=== PATIENT | female | born 1950 | race Caucasian/White ===

== ENCOUNTER → 2016-06-06 | Outpatient (REF) | payer MEDICARE, MEDICAID ==
[~2016-06-06] MED LIST: /ALEN70TA PO; /DIALVITA PO; /LOR25TA OR; /NEPHROTA; /ONDA4TA PO; /RISE35TA; /WARF25TA OR; /WARF5TA; /ZOLP6ER; ACET65TA; ACET65TA OR; ADV250INH INH; AMBI10TA; AMBIENCR PO; AVEL1TAB PO; CATAPRESS PO; CELEBRE200 PO; CINA30TA PO; CLON0.2T; COLA100C PO; COLA100C2 OR; COUM2.5T11 PO; DARV100T; DIOV160T5 PO; DIOV320T PO; EPOG3000 IVP; ERYTHROPOIETIN; FLEEENE4 PR; FLON0.05; FLON0.054; HCTZ25 PO; HEPA10003 SC; HYDR-3716 PO; LOPR50TA; LOPR50TA PO; LOPRESS50 PO; LOSA100T36 PO; LUNESTA2 PO; LUNESTA3 PO; MANNITOL; METO50TA4; MIRA255PW PO; MOBI7.5T10 PO; MULTIVIT OR; NAPR250T; NEPHTAB PO; NORCOTAB PO; OMEP20TA7 PO; OMEP40CA2 PO; OXYC10TA97 OR; PAXI10TA2 PO; PAXI20TA; PAXI20TA PO; PAXIL20 PO; PERC5TAB8; PERC5TAB8 OR; PERC7.5T8 OR; PERCOCET PO; PHOSLO667 MG; PHOSLO667 MG PO; PREG50CA PO; PRIL20CA; PRIL40CA; RENATAB5 PO; RENV2TAB PO; SENO8.6T10 PO; SIMV20TA2; SIMV20TA2 PO; THERGRAN; TYLE325T5 PO; Tylenol PM PO; VALS1TAB48 PO; VICODIN PO; VITA50003 PO; Vitamin D2 PO; WARF05TA PO; ZEMPLAR; ZOCOR20 PO; [UNRECOGNIZED DRUG - CODE] INJ; [UNRECOGNIZED DRUG - CODE] PO; [UNRECOGNIZED DRUG - OTHER] IV; [UNRECOGNIZED DRUG - OTHER] PO; dialyvite PO; venofer IV
[2016-06-06 12:19] LABS: INR 1.8
== END ==
PROVIDERS: ATTEND Internal Medicine
DX: I48.91 Unspecified atrial fibrillation (principal)

== ENCOUNTER → 2016-06-09 | Outpatient (REF) | payer MEDICARE, MEDICAID ==
[2016-06-09 10:46] LABS: INR 1.5
== END ==
PROVIDERS: ATTEND Internal Medicine
DX: I48.91 Unspecified atrial fibrillation (principal)

== ENCOUNTER → 2016-06-20 | Outpatient (REF) | payer MEDICARE, MEDICAID ==
[~2016-06-20] MED LIST changes: -HEPA10003 SC; +HEPA10004 SC; +LOPR1TAB6 PO
[2016-06-20 14:23] LABS: INR 1.6
== END ==
PROVIDERS: ATTEND Internal Medicine
DX: I48.91 Unspecified atrial fibrillation (principal)

== ENCOUNTER → 2016-07-01 | Outpatient (REF) | payer MEDICARE, MEDICAID ==
[2016-07-01 10:02] LABS: INR 1.46
== END ==
PROVIDERS: ATTEND Internal Medicine
DX: I48.91 Unspecified atrial fibrillation (principal)

== ENCOUNTER → 2016-07-04 | Outpatient (REF) | payer MEDICARE, MEDICAID ==
[2016-07-04 15:22] LABS: INR 1.7
== END ==
PROVIDERS: ATTEND Internal Medicine
DX: I48.91 Unspecified atrial fibrillation (principal)

== ENCOUNTER → 2016-08-30 | Outpatient (REF) | payer MEDICARE, MEDICAID | PROVIDERS: ATTEND Internal Medicine | DX: J02.9 Acute pharyngitis, unspecified (principal) ==

== ENCOUNTER 2016-10-29 05:51 | Emergency (ER) | payer MEDICARE, MEDICAID ==
[~2016-10-29] VITALS: Ht 160 cm; Wt 73.0 kg
[~2016-10-29 05:51] MED LIST changes: -COLA100C PO; +COLA100C3 PO
[2016-10-29] MEDS ORDERED: MULT1TAB18 PO (06:29)
[2016-10-29] MEDS ORDERED: ECOT81TA5 PO (06:29)
[2016-10-29] MEDS ORDERED: NEUR100C PO (06:29)
[2016-10-29] MEDS ORDERED: PHOS667C5 PO (06:29)
[2016-10-29] MEDS ORDERED: COUM1TAB17 PO (06:29)
[2016-10-29] MEDS ORDERED: HYDR-4266 PO (06:29)
[2016-10-29] MEDS ORDERED: ASPE4PAD EX (06:29)
[2016-10-29] MEDS ORDERED: BISA10SU4 PR (06:29)
[2016-10-29] MEDS ORDERED: TETRAHYDROZOLINE OPHTH 0.05% 15 ML BTL OD ONE (06:45)
[2016-10-29 08:32] VITALS: BP 145/84
== END 2016-10-29 08:33 | disposition home or self-care (01) ==
LOC: EDBD 05:51 → M ED 07:05
DX: H11.31 Conjunctival hemorrhage, right eye (principal); I10 Essential (primary) hypertension; N19 Unspecified kidney failure; Z99.2 Dependence on renal dialysis; Z79.899 Other long term (current) drug therapy; Z79.82 Long term (current) use of aspirin; Z79.01 Long term (current) use of anticoagulants; Z91.018 Allergy to other foods

== ENCOUNTER → 2017-01-24 | Outpatient (CLI) | payer MEDICARE, MEDICAID ==
[~2017-01-24] MED LIST changes: +ASPE4PAD EX; +ASPI81TAEC PO; -AVEL1TAB PO; +AVEL1TAB3 PO; +BENA25CA4 PO; +BENPAD EXT; +BENPAD TOP; +BISA10SU4 PR; +CEFD300CAP PO; -COLA100C3 PO; +COLA100C5 PO; +COUM1TAB17 PO; -COUM2.5T11 PO; +COUM2.5T17 PO; +ECOT81TA5 PO; +ENEM1ENE4 PR; +ENEMENE16 PR; +EUCECRE3 TOP; +FLON1SPR; +HYDR-3910 PO; +LEXA1TAB2 PO; +METO1TAB7 PO; +METO50TA7 PO; +MOBI4TAB PO; -MOBI7.5T10 PO; +MULT1TAB18 PO; +NEUR100C PO; +OMEP20CA3 PO; +OXYC1TAB23 PO; +PAXI10TA12 PO; -PAXI10TA2 PO; +PAXI20TA29 PO; +PHOS667C5 PO; +PROC5TA PO; +VITA1CAP40 PO; -VITA50003 PO; +VITATAB PO
--- NOTE | 2017-01-24 11:40 | REP ---
MR LUMBAR SPINE WITHOUT CONTRAST: HISTORY: Back pain. COMPARISON: 10/08/2014. Decreased signal intensity on T2-weighted images is present in the lumbar intervertebral discs. The L2-3 through L4-5 intervertebral discs are decreased in height. These findings are consistent with disc degeneration. There is no disc bulge or herniation at the L1-2 level. The L1 nerves exit the neural foramina without compression. A diffuse disc bugle is present at the L2-3 level. There is minimal compression of the thecal sac. There is hypertrophy of the posterior articulating facets. The L2 nerves exit the neural foramina without compression. A diffuse disc bulge is present at the L3-4 level. There is hypertrophy of the ligamenta flava and posterior articulating facets. There are 5 mm of grade 1 spondylolisthesis of L3 on 4. These findings produce mild central canal stenosis. There is compression of the left L3 nerve in the neural foramen. The right L3 nerve exits the neural foramen without compression. A diffuse disc bugle is present at the L4-5 level. There is hypertrophy of the ligamenta flava and posterior articulating facets. There are 5 mm of grade 1 spondylolisthesis of L4 on 5. These findings produce moderate central canal stenosis. There is compression of the left L4 nerve in the neural foramen. The right L4 nerve exits the neural foramen without compression. A diffuse disc bulge is present at the L5-S1 level. There is no thecal sac compression. There is hypertrophy of the posterior articulating facets. The L5 nerves exit the neural foramina without compression. The conus medullaris is normal in appearance terminating at the level of the T12-L1 intervertebral disc. Increased signal intensity on T2-weighted images is present in the endplates of the L4 and 5 vertebral bodies. This presents degenerative change. Multiple cysts are present in the kidneys. Several have fluid fluid levels. IMPRESSION: 1. Diffuse disc bulge at the L2-3 level with minimal thecal sac compression. 2. Mild central canal stenosis at the L3-4 level secondary to disc bulge, ligamentous, and facet hypertrophy and grade 1 spondylolisthesis. There is compression of the left L3 nerve in the neural foramen. 3. Moderate central canal stenosis at the L4-5 level secondary to disc bugle ligamentous and facet hypertrophy and grade 1 spondylolisthesis. There is compression of the left L4 in the neural foramen. 4. Diffuse disc bulge at the L5-S1 level without thecal sac compression. There has been no change in the above findings. 5. Multiple bilateral renal cysts. Several have fluid fluid levels. Ultrasound may be helpful for further evaluation. Signed by Ahmet Burroughs MD 01/24/2017 11:43 A
== END ==
LOC: M RAD 09:39
PROVIDERS: ATTEND Physician Assistant
DX: M51.26 Other intervertebral disc displacement, lumbar region (principal); M51.27 Other intervertebral disc displacement, lumbosacral region; M48.06 Spinal stenosis, lumbar region; M43.16 Spondylolisthesis, lumbar region; M43.17 Spondylolisthesis, lumbosacral region; N28.1 Cyst of kidney, acquired

== ENCOUNTER 2017-02-13 10:19 | Inpatient (IN) | payer MEDICARE, MEDICAID ==
[~2017-02-13] VITALS: Ht 152.4 cm; Wt 68.0 kg
[~2017-02-13 10:19] MED LIST changes: -ASPI81TAEC PO; -BENA25CA4 PO; -BENPAD EXT; -BENPAD TOP; -CEFD300CAP PO; -ENEM1ENE4 PR; -ENEMENE16 PR; -EUCECRE3 TOP; -FLON1SPR; -LEXA1TAB2 PO; -METO1TAB7 PO; -METO50TA7 PO; -OMEP20CA3 PO; -OXYC1TAB23 PO; -PAXI20TA29 PO; -PROC5TA PO; -VITATAB PO
[2017-02-13] MEDS ORDERED: METOPROLOL 5 MG/5 ML VIAL IV STA (10:52)
--- NOTE | 2017-02-13 11:21 | REP ---
PORTABLE CHEST: AP portable view of the chest is performed and compared to prior study of 04/16/2015. There is cardiomegaly. Chronic interstitial prominence is stable. No consolidation is seen. Mediastinal silhouette is unchanged. IMPRESSION: Cardiomegaly with interstitial prominence is stable. No acute infiltrate. Signed by Supa Cadena MD 02/13/2017 05:00 P
[2017-02-13 11:31] LABS: BASO % 0.3 % (0.0-1.0); EOS # 0.1 K/mm3 (0.0-0.50); EOS % 1.9 % (0.0-3.0); LARGE UNSTAINED CELL # 0.1 K/mm3 (0.0-0.4); LARGE UNSTAINED CELL % 1.9 % (0.0-4.0); LYMPH # 0.8 K/mm3 (1.5-4.5); LYMPH % 8.8 % (24.0-44.0); MEAN CORPUSCULAR HEMOGLOBIN 30.6 pg (27.0-33.0); MEAN CORPUSCULAR HGB CONC 31.4 g/dl (32.0-36.5); MEAN CORPUSCULAR VOLUME 97.4 fl (80.0-96.0); MONO # 0.6 K/mm3 (0.0-0.8); NEUTROPHILS # 5.5 K/mm3 (1.8-7.7); NEUTROPHILS % 78.1 % (36.0-66.0); PLATELET COUNT, AUTOMATED 198 k/mm3 (150-450); RED CELL DISTRIBUTION WIDTH 14.6 % (11.5-14.5); WHITE BLOOD COUNT 7.1 K/mm3 (4.0-10.0)
[2017-02-13 11:49] LABS: ALBUMIN 3.1 GM/DL (3.2-5.2); ALBUMIN/GLOBULIN RATIO 0.82 (1.00-1.93); BILIRUBIN,DIRECT 0.3 MG/DL (0.0-0.2); BILIRUBIN,TOTAL 0.8 MG/DL (0.2-1.0); CALCIUM LEVEL 8.5 MG/DL (8.8-10.2); CREATININE FOR GFR 6.61 MG/DL (0.55-1.02); GLOMERULAR FILTRATION RATE 6.7 (>45); POTASSIUM SERUM 5.1 MEQ/L (3.5-5.1); TOTAL PROTEIN 6.9 GM/DL (6.4-8.2)
[2017-02-13] MEDS ORDERED: ENEM1ENE4 PR (12:27)
[2017-02-13] MEDS ORDERED: FLON1SPR (12:27)
[2017-02-13] MEDS ORDERED: VITATAB PO (12:27)
[2017-02-13] MEDS ORDERED: BENPAD TOP (12:27)
[2017-02-13] MEDS ORDERED: PAXI20TA29 PO (12:27)
[2017-02-13] MEDS ORDERED: OMEP20CA3 PO (12:27)
[2017-02-13] MEDS ORDERED: METO1TAB7 PO (12:27)
[2017-02-13] MEDS: CALCIUM ACETATE 667 MG GELCAP PO SCH ×2 (12:30→19:04)
[2017-02-13] MEDS ORDERED: PERCOCET 5MG/325MG TAB PO ONE (12:30)
[2017-02-13] MEDS ORDERED: FLUTICASONE PROP 0.05% NASAL SPRAY 16 GM (FLONASE) PRN (13:00)
[2017-02-13] MEDS ORDERED: BISACODYL 10 MG SUPP PR PRN (13:00)
[2017-02-13] MEDS ORDERED: FLEET ENEMA PR PRN (13:00)
[2017-02-13 13:07] LABS: INR 2.32
[2017-02-13 13:15] LABS: FREE T4 1.13 NG/DL (0.76-1.46)
--- NOTE | 2017-02-13 13:57 | HPE ---
DATE OF ADMISSION: 02/13/2017 PRIMARY CARE PROVIDER: Dr. Gisela John. DIRECTOR TRANSLATIONAL: Dr. Begum. ATTENDING PHYSICIAN: Dr. Pattie Jiang. CHIEF COMPLAINT: Atrial fibrillation with rapid ventricular response. HISTORY: Margarita Delgado is a 66-year-old from [facility], end stage renal disease on maintenance dialysis Monday, Monday, Monday, who was sent over to the emergency room for low grade fever and "poor color". She was found to be in atrial fibrillation with rapid ventricular response. She had a headache and what was described as neck stiffness which is actually more of a shoulder/upper back discomfort. In the ER, telemetry was applied and she was found to be in atrial fibrillation with rapid ventricular response. She has a past history of atrial fibrillation specifically in sinus rhythm. PAST MEDICAL HISTORY: End stage renal disease. Hypertension. Anemia secondary to chronic kidney disease. Gastroesophageal reflux disease (GERD) secondary to hyperparathyroidism. Osteoporosis. History of depression. Chronic pain syndromes. Hyperlipidemia. Chronic neck pain. Lumbar central canal stenosis. SURGERY: Open reduction internal fixation (ORIF) right ankle times three. Right knee arthroplasty. Left hip arthroplasty. AV fistula left forearm with revision. section times two. REVIEW OF SYSTEMS: No chest pain. No dyspnea on exertion. No perceived palpitations. [facility] It has since resolved. She had a low grade fever. No chills. No frequency, urgency, dysuria. MEDICATIONS: - Tylenol as needed - [place] 5/325 every 6 hours as needed - aspirin 81 mg daily - Dulcolax suppository daily as needed - PhosLo 667 mg with meals - Sensipar 30 mg twice weekly - Senokot twice daily - Colace 100 mg daily at bedtime - vitamin D 50,000 units monthly - Flonase spray - Neurontin 100 mg twice daily - hydralazine 25 mg twice daily - metoprolol ER 50 mg four days a week - omeprazole 20 mg daily - Paxil 20 mg daily - [id number]-[id number]-[id number] one daily - warfarin 5 mg daily ALLERGIES: KENA. PHYSICAL EXAMINATION: 101/66, pulse 114, respiratory 18, 98% on oxygen saturation. General appearance: She is resting comfortably in no distress. Her headache has resolved. She does not have any neck pain or stiffness. There is an upper back and shoulder ache. It is worse if she rotates her neck left or right or lifts her arms up over her head. Pupils equal, round, and reactive to light. Tympanic membranes and oropharynx benign. Neck: No masses. Lungs: Decreased breath sounds but clear. Heart: Regular rate and rhythm. Tachycardic. 1-2/6 systolic ejection murmur. Abdomen: Soft, nontender, no masses. Dialysis AV fistula left forearm. Extremities: 1+ peripheral edema. No clubbing or cyanosis. Decreased pulses in her feet, still palpable. Neurological: Nonfocal. LABS: EKG shows atrial fibrillation with rapid ventricular response, nonspecific T wave abnormalities related to rate. White count 7.1, hemoglobin 10.1, platelets 198. Potassium 5.1. Sodium 134, glucose 97. She is on warfarin but no INR was checked. She did have a lactic acid check which was normal. IMPRESSION: 1. Atrial fibrillation with rapid ventricular response. Obviously she needs an INR check. She is on warfarin. Her rate is under better control after receiving some metoprolol in the emergency room. She is currently on metoprolol ER four days a week. We will change this to short acting metoprolol on a split dose daily until her beta mikhail requirements are determined. Echocardiogram has been ordered. Free T4, TSH has been ordered. Cycle a set of cardiac enzymes. 2. End stage renal disease. She is on dialysis. Nephrology has been consulted. 3. Hypertension. Continue hydralazine. Increase frequency of metoprolol. 4. History of depression. Continue antidepressant medications. 5. Chronic pain syndrome. Continue her [place]. There is nothing meningitic about her neck pain. It is aggravated by moving her arms and is felt as a deep interscapular ache across the top of her shoulders. I do not think it warrants evaluation for encephalitis or meningitis.
--- NOTE | 2017-02-13 14:26 | ER ---
DATE OF CONSULTATION: 02/13/2017 REQUESTING PHYSICIAN: Dr. Mejia in the emergency room. REASON FOR CONSULTATION: Assistance in the management of endstage renal disease and hemodialysis. HISTORY OF PRESENT ILLNESS: Margarita Delgado is a 66-year-old female with a past medical history of endstage renal disease and hemodialysis every Monday, Monday, Monday. She is well-known to the nephrology service from outpatient hemodialysis. She is a resident of [facility]. She was sent to the emergency room today because of persistent headaches, low grade fevers, and rapid heart rate. The patient was found to have a low grade temperature of 100.7 in the emergency room. She was also found to be in atrial fibrillation with rapid ventricular rate. 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 When I saw the patient in the emergency room, she was afebrile. She was tachycardic but that was because of atrial fibrillation but otherwise, she was hemodynamically stable and she was able to communicate with me. PAST MEDICAL HISTORY: Endstage renal disease on hemodialysis every Monday, Monday, and Monday because of hypertensive nephrosclerosis. The patient has a history of osteoporosis, hypertension, hyperlipidemia, degenerative arthritis, gastroesophageal reflux disease, anemia of chronic kidney disease, history of depression, history or peripheral neuropathy and patient is chronically bedridden. She is unable to walk. PAST SURGICAL HISTORY: The patient is status post left hip arthroplasty, status post open reduction internal fixation of the right ankle in the past, status post left forearm AV fistula placement and history of section times two in the past. ALLERGIES: No known drug allergies. FAMILY HISTORY: No significant family history of endstage renal disease requiring hemodialysis. SOCIAL HISTORY: The patient is a resident at [facility]. There is no history of illicit drug abuse, alcohol abuse, or smoking. REVIEW OF SYSTEMS: CONSTITUTIONAL: The patient reports a low grade fever but she denies any chills or rigors. EYES: She denies any blurry vision or double vision. ENT: She denies any dysphagia, odynophagia or ear discharge. CARDIOVASCULAR: The patient denies any chest pain. She does report some palpitations. RESPIRATORY: She denies any cough or shortness of breath. GI: She denies any nausea, vomiting or pain in the abdomen. GENITOURINARY: She denies any dysuria, hematuria. MUSCULOSKELETAL: The patient reports inability to walk. CENTRAL NERVOUS SYSTEM: The patient reports history of lower extremity weakness and peripheral neuropathy. But there is no history seizure disorder. ENDOCRINE: The patient has secondary hyperparathyroidism. SKIN: She denies any rashes or ulcers. PSYCH: She denies any depression or anxiety. All other review of systems is negative. PHYSICAL EXAMINATION: GENERAL: The patient is awake, alert, oriented times three, laying in bed. No apparent distress. VITAL SIGNS: Temperature is 98 degrees Fahrenheit, blood pressure is 120/70, pulse 126, respiratory rate 18, saturating 98% in room air. HEAD/NECK: Extraocular muscles intact. Pupils equal, round, and reactive to light. Mucous membranes are moist. Neck is supple. There is elevation of jugular venous distention. CARDIOVASCULAR: S1, S2, irregularly irregular heart rate. No murmur, rub or gallop. RESPIRATORY: Chest is clear to auscultation bilaterally. Bilaterally good air entry. No rales or rhonchi. ABDOMEN: Soft, positive bowel sounds. Nontender. No ascites. No organomegaly. MUSCULOSKELETAL: No edema of the bilateral lower extremities. No clubbing or stenosis. The patient has weakness of bilateral lower extremities. AV access. The patient has a large left forearm AV fistula with positive thrill and bruit. CENTRAL NERVOUS SYSTEM: Power is 5/5 in bilateral upper extremities. No focal deficit except bilateral lower extremity weakness. LAB REVIEW: CBC showed a WBC 7.1, hemoglobin 10.1, platelets 198. BNP showed sodium 134, potassium 5.1, chloride 98, bicarbonate 24, BUN 17, creatinine 6.6, calcium 8.5, phosphorus 2.7. Ferritin is 720,000, saturation is 8.5%. The iron studies are from previous labs. IMAGING: A chest x-ray done today in the emergency room showed cardiomegaly with interstitial prominence. No acute infiltrate. CURRENT MEDICATIONS: In the emergency room, the patient was given metoprolol 5 mg IV times one dose and a dose or Percocet one tablet times one. HOME MEDICATIONS: The patient's home medications including: - Tylenol as needed. - [place] one tablet every 6 hours as needed pain - aspirin 81 mg daily - PhosLo one tablet by mouth twice a day with meals - Sensipar 30 mg by mouth two times a week - Colace 200 mg nightly - vitamin D 50,000 units once a month - Flonase nasal spray - gabapentin 100 mg by mouth twice a day - hydralazine 25 mg by mouth twice a day - metoprolol succinate 50 mg by mouth four times a week on Monday, , Monday and Monday. - paroxetine 20 mg daily - Nephro-Jake one tablet daily - Coumadin 5 mg by mouth in the evening ASSESSMENT: 66-year-old female with a past medical history of endstage renal disease on hemodialysis. This patient presented to the emergency room with a low grade fever and atrial fibrillation with rapid ventricular rate. The patient missed her hemodialysis today. PLAN: 1. Endstage renal disease on hemodialysis. Today's is the patient's regular day of dialysis. Inpatient hemodialysis will be arranged once the patient is admitted. She will get dialysis upstairs at dialysis center today. I shall try to remove about 3 kg of fluid as tolerated by her blood pressure. 2. Hypertension: Blood pressure is acceptable at this time. The patient gets her metoprolol on nondialysis days only. No need of any antihypertensive at this time. 3. Atrial fibrillation with rapid ventricular rate. The patient was given metoprolol 5 mg IV times one dose. If the patient does not respond, she can be given a dose of amiodarone 150 mg IV times one dose. 4. Chronic kidney disease mineral bone disease: Continue current dose of PhosLo one tablet by mouth twice a day with meals. 5. Secondary hyperparathyroidism: Continue Sensipar 30 mg by mouth two times a week. 6. History of depression and anxiety: Continue current dose of Paxil 20 mg by mouth daily. 7. Anemia and endstage renal disease: The patient's hemoglobin is 10.1, which is acceptable at this time. No need or Aranesp administration at this time. Thank you for involving us in the care of this patient. We shall be happy to follow the patient along with you tomorrow morning, once the patient is admitted. Plan of care was discussed with the emergency room physician, Dr. Mejia.
[2017-02-13] MEDS: METOPROLOL TART 25 MG TABLET PO SCH ×2 (14:45→17:51)
[2017-02-13] MEDS ORDERED: HEPARIN 1,000 UNITS/ML 10ML VIAL (FOR RADIOLOGY& DIALYSIS ONLY) IV ONE (15:15)
[2017-02-13 17:15] VITALS: BP 140/82
[2017-02-13] MEDS: WARFARIN SOD 5 MG TAB PO SCH (17:51)
[2017-02-13] MEDS: ACETAMINOPHEN TAB 650MG DOSE (2X325MG) PO PRN (17:56)
[2017-02-13] MEDS: NEPHRO-VIT TAB (NEPHROCAPS) PO SCH (19:00)
--- NOTE | 2017-02-13 19:56 | ECGEPIP ---
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
[2017-02-13 20:00] VITALS: BP 113/63
[2017-02-13] MEDS: GABAPENTIN 100 MG CAP PO SCH (20:14)
[2017-02-13] MEDS: DOCUSATE SODIUM 100 MG CAP PO SCH (20:14)
[2017-02-13] MEDS: NORCO, ANEXSIA 5/325MG TABLET (HYDROcodone/ACETAMINOPHEN) PO PRN (20:14)
[2017-02-13] MEDS: **hydrALAZINE HCL** 25 MG TAB PO SCH (20:15)
[2017-02-13] MEDS: SENOKOT S TAB PO SCH (20:15)
[2017-02-13 23:59] VITALS: BP 126/71
[2017-02-14] MEDS: METOPROLOL TART 25 MG TABLET PO SCH ×5 (00:17→23:45)
[2017-02-14] MEDS: NORCO, ANEXSIA 5/325MG TABLET (HYDROcodone/ACETAMINOPHEN) PO PRN ×4 (03:56→23:45)
[2017-02-14 04:00] VITALS: BP 138/87
[2017-02-14 05:41] LABS: MEAN CORPUSCULAR HEMOGLOBIN 31.9 pg (27.0-33.0); MEAN CORPUSCULAR HGB CONC 33.2 g/dl (32.0-36.5); MEAN CORPUSCULAR VOLUME 95.9 fl (80.0-96.0); RED CELL DISTRIBUTION WIDTH 14.4 % (11.5-14.5)
[2017-02-14 05:42] LABS: INR 2.54
[2017-02-14 05:49] LABS: CALCIUM LEVEL 8.2 MG/DL (8.8-10.2); CREATININE FOR GFR 4.22 MG/DL (0.55-1.02); GLOMERULAR FILTRATION RATE 11.2 (>45); POTASSIUM SERUM 4.3 MEQ/L (3.5-5.1)
[2017-02-14 08:00] VITALS: BP 140/80
[2017-02-14] MEDS: ASPIRIN 81 MG ENTERIC TAB PO SCH (08:46)
[2017-02-14] MEDS: OMEPRAZOLE 20 MG CAP PO SCH (08:46)
[2017-02-14] MEDS: GABAPENTIN 100 MG CAP PO SCH ×2 (08:46→21:12)
[2017-02-14] MEDS: PARoxetine 20 MG TAB PO SCH (08:46)
[2017-02-14] MEDS: CALCIUM ACETATE 667 MG GELCAP PO SCH ×3 (08:46→17:19)
[2017-02-14] MEDS: **hydrALAZINE HCL** 25 MG TAB PO SCH ×2 (08:46→21:12)
[2017-02-14] MEDS: SENOKOT S TAB PO SCH ×2 (08:46→21:12)
[2017-02-14] MEDS: NEPHRO-VIT TAB (NEPHROCAPS) PO SCH (08:52)
[2017-02-14] MEDS ORDERED: VITAMIN D 50,000 UNITS CAPSULE (ERGOCALCIFEROL 1.25MG) PO SCH (09:00)
[2017-02-14] MEDS ORDERED: GASTROGRAFIN SOLUTION 30ML PO ONE (10:45)
[2017-02-14] MEDS ORDERED: GASTROGRAFIN SOLUTION 30ML (Q9963) PO ONE (11:15)
[2017-02-14 12:00] VITALS: BP 111/87
[2017-02-14] MEDS ORDERED: ISOVUE-370 76% 100ML VIAL (Q9967) As Ordered ONE (12:41)
--- NOTE | 2017-02-14 13:18 | IPNPDOC ---
Date Seen The patient was seen on 02/14/17. Progress Note SUBJECTIVE: Patient complains of episodes of myoclonic jerking yesterday, as well as neck stiffness and shoulder soreness which is been present for several months and not any acutely worse at the present time she denies any myoclonic jerking and tells me that her neck pain is at its baseline. She feels better than she did yesterday OBJECTIVE PHYSICAL EXAMINATION: VITAL SIGNS: Please see below. GENERAL: Pleasant elderly female lying in bed at a 30 angle she does not appear to be in any acute distress whatsoever HEENT: Pupils equally round reactive to light she has moist mucous membranes no elevation and CVP CARDIOVASCULAR: S1-S2 irregularly irregular without any additional heart sounds appreciated. RESPIRATORY: Clear to auscultation. ABDOMINAL: Bowel sounds are present abdomen soft and nontender to palpation EXTREMITIES: No clubbing cyanosis or edema LABORATORY DATA: Please see below. MICROBIOLOGY: Please see below. IMAGING: Chest x-ray 918:Cardiomegaly with interstitial prominence is stable. No acute infiltrate. DVT prophylaxis ordered?: Therapeutic on Coumadin ASSESSMENT AND PLAN: This is a 66-year-old female with atrial fibrillation with rapid ventricular response and low-grade fever. PROBLEMS: 1. Atrial fibrillation with rapid ventricular response: The patient was reportedly told she had atrial fibrillation by Dr. Butler prior to having her fistula placed she is on Coumadin and reportedly started on this by him she is therapeutic she is rate controlled at this time with metoprolol 25 mg every 6 hours. Should this not be enough to control would recommend discontinuing hydralazine and titrating up her beta mikhail. A TSH is slightly low however not impressively low and echocardiogram has been ordered 2. Low-grade fever: Unclear etiology at this time. We'll check UA urine culture she does make some urine still she does not have any rest or symptoms or any acute infiltrate. No URI symptoms and influenza swab was negative blood cultures are pending she is not currently on any antibiotics. Her neck pain is more chronic arthritis and does not appear to be meningeal or encephalitic source at all and I do not feel she needs a lumbar puncture 3. End-stage renal disease: Probably is also greatly appreciated she continues on dialysis Monday she is on Sensipar vitamin D Nephro-Jake. PhosLo 4. Hypertension: As outlined above the patient is on hydralazine she is also on metoprolol which we are titrating 5. Neuropathy: The patient is on Neurontin and she is bedridden group home patient at her baseline DISPOSITION: We will continue to monitor Closely. VS, I&O, 24H, Fishbone Vital Signs/I&O Vital Signs Date Time Temp Pulse Resp B/P (MAP) Pulse Ox O2 Delivery O2 Flow Rate FiO2 02/14/17 12:00 99.3 99 18 111/87 (95) 91 Room Air 02/14/17 11:10 2.0 I&O- Last 24 Hours up to 6 AM 02/14/17 05:59 Intake Total 120 ml Output Total 3025 ml Balance -2905 ml Laboratory Data 24H LABS Laboratory Tests 2 02/13/17 18:40: Total Creatine Kinase 24L, Creatine Kinase MB 1.0, Creatine Kinase MB Relative Index 4.16H, Troponin I < 0.02 02/14/17 02:35: Total Creatine Kinase 19L, Creatine Kinase MB 1.0, Creatine Kinase MB Relative Index 5.26H, Troponin I < 0.02 02/14/17 05:18: Prothrombin Time 28.4H, Prothromb Time International Ratio 2.54, Anion Gap 9, Glomerular Filtration Rate 11.2L, Blood Urea Nitrogen 35H, Creatinine 4.22H, Sodium Level 134L, Potassium Level 4.3, Chloride Level 97L, Carbon Dioxide Level 28, Calcium Level 8.2L 02/14/17 10:43: Total Creatine Kinase 28, Creatine Kinase MB 1.0, Creatine Kinase MB Relative Index 3.57, Troponin I < 0.02 CBC/BMP Laboratory Tests 02/14/17 05:18 Red Blood Count 3.11 L, Mean Corpuscular Volume 95.9, Mean Corpuscular Hemoglobin 31.9, Mean Corpuscular Hemoglobin Concent 33.2, Red Cell Distribution Width 14.4, Calcium Level 8.2 L Microbiology Microbiology 02/13/17 Blood Culture - Preliminary, Resulted No growth after 24 hours . All specim... 02/13/17 Blood Culture - Preliminary, Resulted No growth after 24 hours . All specim... 02/13/17 Influenza Virus Type A Antigen - Final, Complete 02/13/17 Influenza Virus Type B Antigen - Final, Complete TERESA DARLING MD Feb 14, 2017 13:18
--- NOTE | 2017-02-14 13:39 | REP ---
CT of the abdomen and pelvis with IV and bowel contrast: Comparison is 04/21/2015. The visualized lung ruggiero are unremarkable. There are two crescentic shaped low density collections , one along the anterior margin of the hepatic right lobe and the other along the lateral margin of the hepatic right lobe, not present previously, compatible with subcapsular hematomas. The hepatic parenchyma is otherwise homogeneous and unremarkable. The gallbladder is incompletely distended, however multiple gallbladder calculi are again identified, unchanged. The gallbladder is otherwise unremarkable. The pancreas is unremarkable. The spleen is homogeneous, normal size and unremarkable. There is marked renal cortical atrophy bilaterally compatible with end-stage renal disease. I note that the patient is on dialysis. This is unchanged. There are numerous renal cysts bilaterally, also compatible with advanced renal disease. On the comparison study there was a large cyst lateral to the left kidney. This cyst today and has increased in size and there is a mottled increased density throughout. This could represent hemorrhage, infection or neoplasm in this cyst as an interval change. There is no free intraperitoneal fluid. The adrenals are unremarkable. Abdominal aorta is unremarkable. There is moderate gaseous distension of the colon, nonspecific. There is no small bowel distension. Pelvis: The uterus and adnexa are unremarkable. There is no adenopathy or ascites. The pelvic bowel loops are unremarkable. There is internal fixation of the left femur with a gamma nail. Impression: Probable new subcapsular hematomas in the liver. The largest left renal cyst has significantly increased in size and is filled with mottled opaque material as interval changes compatible with hemorrhage, infection, neoplasm or combination of this cyst. Signed by Supa Metz MD 02/14/2017 01:31 P
--- NOTE | 2017-02-14 13:59 | IPN ---
DATE: 02/14/2017 SUBJECTIVE: The patient was seen and examined at the bedside this morning. She was dialyzed emergently yesterday, she tolerated the hemodialysis procedure well. Atrial fibrillation is better controlled at this time; however, the patient is complaining of pain in the left lower abdomen, which started today. REVIEW OF SYSTEMS: The patient denies any fevers, chills, rigors at this time. She denies any chest pain, shortness of breath. She denies any nausea, vomiting, but she does report pain in the left lower quadrant of the abdomen. She denies any constipation or diarrhea or blood in the stool. The rest of the review of systems is negative. OBJECTIVE: VITAL SIGNS: Temperature is 99.3 degrees Fahrenheit. Blood pressure is 111/87, pulse is 99, respiratory rate of 18, saturating 91% on room air. Intake and output: Urine output is not recorded. Ultrafiltration with hemodialysis was 3 liters yesterday. Weight on the bed scale is 17.8 kg. PHYSICAL EXAMINATION: GENERAL: The patient is awake, alert and oriented times three. Lying in bed in no apparent distress. HEAD AND NECK EXAM: Extraocular muscles intact. Pupils are equal, round and reactive to light. Mucous membranes are moist. Neck is supple. There is elevated jugular venous distention (JVD). CARDIOVASCULAR: S1, S2. It is regular heart rate with tachycardia. RESPIRATORY: Chest is clear to auscultation bilaterally. Bilateral equal air entry. No rales or rhonchi. ABDOMEN: Soft, mildly tender to deep palpation in the left lower quadrant with slight rebound tenderness. EXTREMITIES: No clubbing or cyanosis. Pulses are 2+. CENTRAL NERVOUS SYSTEM (FLEET ADMINISTRATIVE ASSISTANT): No focal neurological deficits except bilateral lower extremity weakness. She is oriented times three. LABORATORY REVIEW: CBC showed a WBC 7, hemoglobin 9.9, platelets 178, BMP showed sodium 134, potassium 4.3, chloride 97, bicarbonate 28, BUN 35, creatinine 4.2, calcium 8.2. CURRENT INPATIENT MEDICATIONS: The patient's medications were all reviewed by me. There is no change in the medications today as compared with yesterday. ASSESSMENT: 66-year-old female with a past medical history of end stage renal disease on hemodialysis, chronic atrial fibrillation admitted this time with low grade fevers and atrial fibrillation with rapid ventricular rate. PLAN: 1. End stage renal disease on hemodialysis. The patient's regular dialysis days are Monday, Monday, Monday. She was dialyzed according to her regular schedule yesterday inpatient and 3 liters of fluid was removed. No urgent need of hemodialysis today. Next session will be done tomorrow. 2. Atrial fibrillation with rapid ventricular rate. The patient got IV metoprolol on admission. She is on metoprolol 25 mg by mouth every 6 hours at this time. Continue the current dose at this time. Atrial fibrillation is better controlled at this time. 3. Pain in left lower quadrant of the abdomen. The patient is going to get a CAT scan of the abdomen and pelvis with contrast. It is okay to give oral and IV contrast to the patient because she is a dialysis patient. She will be dialyzed tomorrow. 4. Anemia in end stage renal disease. The patient's hemoglobin is 9.9. She will be given a dose of Aranesp with hemodialysis tomorrow morning. 5. Hypertension. Blood pressure is acceptable at this time. Continue current dose of hydralazine 25 mg by mouth twice a day and metoprolol 25 mg by mouth every 6 hours. She is already on Coumadin. INR is therapeutic at 2.5 today. The plan of care was discussed with the hospitalist, Dr. Garza.
[2017-02-14 15:30] LABS: RENAL EPITHELIAL CELLS 1 /HPF
[2017-02-14 16:00] VITALS: BP 123/79
[2017-02-14] MEDS: WARFARIN SOD 5 MG TAB PO SCH (17:19)
[2017-02-14 20:00] VITALS: BP 109/70
[2017-02-14] MEDS: DOCUSATE SODIUM 100 MG CAP PO SCH (21:12)
[2017-02-14] MEDS: ACETAMINOPHEN TAB 650MG DOSE (2X325MG) PO PRN (21:16)
--- NOTE | 2017-02-14 22:11 | ECGEPIP ---
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
[2017-02-14 23:53] VITALS: BP 144/86
--- NOTE | 2017-02-14 23:58 | ECHO ---
DATE OF PROCEDURE: 02/14/2017 REFERRING PHYSICIAN: Dr. Jung Jackson INDICATION: Atrial fibrillation. HEIGHT: 152 cm WEIGHT: 77.4 kg 2D MEASUREMENTS: Aortic root: 3.3 cm Left atrium: 5.0 cm Ventricular septum: 1.17 cm Posterior wall: 1.17 cm Left ventricle diastole: 4.7 cm LVOT: 2.3 cm Right ventricle: 5.3 cm Inferior vena cava: 2.4 cm DOPPLER MEASUREMENTS: Very mild aortic regurgitation. Aortic valve velocity: 109 cm/s LVOT velocity: 79.7 cm/s LVOT VTI: 13.0 cm Mild mitral regurgitation. Severe tricuspid regurgitation. Estimated right ventricle systolic pressure: At least 62 mmHg assuming a right atrial pressure of at least 20 mmHg. Pulmonary artery systolic pressure: 46 mmHg by pulmonary acceleration time method. DESCRIPTION: Rhythm was atrial fibrillation with rapid ventricular response. Image quality was fair. CONCLUSIONS: 1. Normal left ventricle internal dimensions and wall thickness. No distinct regional wall motion abnormalities. Mild reduction overall left ventricular (LV) systolic function. Left ventricular ejection fraction (LVEF) 50% by visual estimate. 2. Severe left atrial dilatation. 3. Severe right atrial dilatation. Suggestive of severe elevation of estimated right ventricle systolic pressure (at least 62 mmHg). Severe tricuspid regurgitation with structurally normal appearing tricuspid leaflets. Mildly dilated right ventricle with normal right ventricular (RV) systolic function. 4. Inferior vena cava plethora. Suggestive of elevated central venous pressure of at least 20 mmHg. 5. Very small pericardial effusion over the inferior and inferolateral regions of the left ventricle. No diastolic chamber collapse. 6. Very mild aortic valve sclerosis of a 3-cusp aortic valve. Very mild aortic regurgitation ADDITIONAL COMMENTS AND RECOMMENDATIONS: Recommend rate controlled approach to atrial fibrillation.
[2017-02-15 04:00] VITALS: BP 108/60
[2017-02-15 05:55] LABS: MEAN CORPUSCULAR HEMOGLOBIN 31.2 pg (27.0-33.0); MEAN CORPUSCULAR HGB CONC 32.8 g/dl (32.0-36.5); MEAN CORPUSCULAR VOLUME 95.2 fl (80.0-96.0); RED CELL DISTRIBUTION WIDTH 14.4 % (11.5-14.5); WHITE BLOOD COUNT 10.6 K/mm3 (4.0-10.0)
[2017-02-15 05:59] VITALS: BP 110/82
[2017-02-15 05:59] LABS: INR 3.54
[2017-02-15 06:02] LABS: CALCIUM LEVEL 8.4 MG/DL (8.8-10.2); CREATININE FOR GFR 5.76 MG/DL (0.55-1.02); GLOMERULAR FILTRATION RATE 7.8 (>45); POTASSIUM SERUM 4.7 MEQ/L (3.5-5.1)
[2017-02-15] MEDS: METOPROLOL TART 25 MG TABLET PO SCH ×3 (06:25→17:05)
[2017-02-15] MEDS: SENOKOT S TAB PO SCH ×2 (06:26→21:17)
[2017-02-15] MEDS: OMEPRAZOLE 20 MG CAP PO SCH (06:26)
[2017-02-15] MEDS: GABAPENTIN 100 MG CAP PO SCH ×2 (06:26→21:17)
[2017-02-15] MEDS: **hydrALAZINE HCL** 25 MG TAB PO SCH ×2 (06:26→21:17)
[2017-02-15] MEDS: ASPIRIN 81 MG ENTERIC TAB PO SCH (06:26)
[2017-02-15] MEDS: CALCIUM ACETATE 667 MG GELCAP PO SCH ×3 (06:27→17:05)
[2017-02-15] MEDS: PARoxetine 20 MG TAB PO SCH (06:27)
[2017-02-15 08:00] VITALS: BP 118/68
[2017-02-15] MEDS ORDERED: INFLUENZA VIRUS VACCINE HIGH DOSE 0.5 ML SYRINGE (90662) IM ONE (09:00)
[2017-02-15] MEDS ORDERED: CINACALCET 30 MG TAB (SENSIPAR) PO SCH (09:00)
[2017-02-15] MEDS ORDERED: CEFEPIME HCL 0.5 GM in D5W 50 ML IV SCH (11:00)
--- NOTE | 2017-02-15 11:33 | CR.PDOC ---
[facility] Consultation Consultation DATE OF CONSULTATION: Feb 13, 2017 at 10:19 Requesting physician: Dr. Garza REASON FOR CONSULTATION/CHIEF COMPLAINT: Acute subscapular liver hematoma HISTORY OF PRESENT ILLNESS: Margarita Hua to 66-year-old female, a current resident of the [facility]. With a past medical history of end-stage renal disease on maintenance dialysis Monday, Monday, and Monday. She presented to the emergency room on 02/13/2017 because of low-grade fever and poor color. She was found to be in atrial fibrillation with rapid ventricular response. Patient is currently on warfarin 5 mg daily. She also described neck stiffness along with a headache. She also complained of left lower abdominal pain. On 02/14/[address] of the abdomen and pelvis was obtained. An incidental probable new subscapular hematoma was discovered as well as a large left renal cyst that had significantly increased in size and was filled with moderate opaque materials, with interventional changes compatible with either hemorrhage , infection, neoplasm or combination of all 3. ALLERGIES: Please see below. HOME MEDICATIONS: Please see below. PAST MEDICAL HISTORY: End-stage renal disease Hypertension Anemia secondary to chronic kidney disease Gastroesophageal reflux disease Osteoporosis History of depression Chronic pain syndrome Hyperlipidemia Chronic neck pain Lumbar central canal stenosis PAST SURGICAL HISTORY: Open reduction internal fixation of the right ankle 3 Right knee arthroplasty Left hip arthroplasty AV fistula left forearm with revision sections 2 SOCIAL HISTORY: The patient is resident at [facility], no history of illicit drug abuse, alcohol abuse or smoking REVIEW OF SYSTEMS: CONSTITUTIONAL: Alert, orientated, patient was seen in the dialysis suite currently receiving dialysis HEENT: Denies any headache, denies any blurry eyes, denies any nose or drainage CARDIOVASCULAR: Has chest pain, denies palpitation denies any murmurs RESPIRATORY: Denies breathing difficulty, shortness of breath GENITOURINARY: Denies any difficulty urinating, no dysuria, no hematuria MUSCULOSKELETAL: Reports inability to walk as well as lotion and weakness, left lower abdominal pain HEMATOLOGIC/LYMPHATIC: Denied any recent bleeding episode PHYSICAL EXAMINATION: VITAL SIGNS: Please see below. GENERAL APPEARANCE: Alert, currently receiving dialysis HEENT: Head is atraumatic, was mucosa is moist, RESPIRATORY: Clear to auscultate the lungs bilaterally anterior and posteriorly. CARDIOVASCULAR: 1 and S2 present, no rubs, no murmurs, no gallops ABDOMEN: Tender to palpate in the right upper quadrant, tender to palpate in left lower quadrant, the pain is worse in the left side, no organomegaly noted LABORATORY DATA: Please see below. ASSESSMENT: A 66-year-old female with a past medical history of end-stage renal disease on hemodialysis. She presented to the ED on 02/13/2017 with low-grade fever and poor color. A CT scan done on 02/14/2017 reveal an incidental finding of subscapular hematoma. PLAN 1. Subscapular hematoma: This is most likely due to the warfarin adverse effect. I recommend that patient's warfarin be stopped for about 7-10 days. Consider a referral to cardiology, to determine if warfarin dose can be reduced. Or perhaps an ultimate blood thinner with a decreased incidence of adverse bleeding. A Follow-up CT is unnecessary unless anemia worsens, or hematoma starts to cause mass effect issues. Scapular hematomas are treated conservatively, and I expected the same with this patient. At this point there is no need for any surgical intervention. 2. Renal cyst: There is a possibility that she is bleeding into the renal cyst, which would explain the recent enlargement of the cyst. I recommend that she follow the recommendations made by nephrology in terms of managing this patient cyst and dialysis treatment. Thank you in involving us in the treatment of this patient. We shall be happy to assist you with further management of this patient. Vital Signs/I&O Vital Signs Date Time Temp Pulse Resp B/P (MAP) Pulse Ox O2 Delivery O2 Flow Rate FiO2 02/15/17 08:33 Room Air 2.0 02/15/17 08:00 99.0 70 18 118/68 (85) 94 I&O- Last 24 Hours up to 6 AM 02/16/17 05:59 Intake Total 60 ml Output Total 0 ml Balance 60 ml Laboratory Data Labs 24H Laboratory Tests 2 02/14/17 15:08: Urine Appearance CLOUDYH, Urine Color DANNY, Urine pH 8.0, Urine Specific [place] 1.011, Urine Protein 2+H, Urine Glucose (UA) NEGATIVE, Urine Ketones NEGATIVE, Urine Urobilinogen 0.2, Urine Bilirubin NEGATIVE, Urine Leukocyte Esterase 3+H, Urine Blood 2+H, Urine Nitrite NEGATIVE, Urine WBC (Auto) TNTCH, Urine RBC (Auto) 27H, Urine Hyaline Casts (Auto) 0, Urine Bacteria (Auto) NEGATIVE, Urine Squamous Epithelial Cells 16, Urine Renal Epithelial Cells 1, Urine Sperm (Auto) 02/15/17 05:34: Prothrombin Time 37.2H, Prothromb Time International Ratio 3.54, Anion Gap 12, Glomerular Filtration Rate 7.8L, Blood Urea Nitrogen 57#H, Creatinine 5.76H, Sodium Level 131L, Potassium Level 4.7, Chloride Level 93L, Carbon Dioxide Level 26, Calcium Level 8.4L CBC/BMP Laboratory Tests 02/15/17 05:34 Red Blood Count 3.11 L, Mean Corpuscular Volume 95.2, Mean Corpuscular Hemoglobin 31.2, Mean Corpuscular Hemoglobin Concent 32.8, Red Cell Distribution Width 14.4, Calcium Level 8.4 L Microbiology Microbiology 02/13/17 Blood Culture - Preliminary, Resulted No Growth after 48 hours. All Specime... 02/13/17 Blood Culture - Preliminary, Resulted No Growth after 48 hours. All Specime... 02/13/17 Influenza Virus Type A Antigen - Final, Complete 02/13/17 Influenza Virus Type B Antigen - Final, Complete 02/14/17 Urine Culture - Final, Complete Allergies Coded Allergies: [place] (Verified Allergy, Severe, KENA SKINS - RASH, THROAT SWELLING, DIFF BREATHING, 09/06/11) Home Medications Scheduled (Vitamins For Hair) 1 Tab Tab, 1 TAB PO DAILY, (Reported) Aspirin (Ecotrin Low Strength) 81 Mg Tab, 81 MG PO DAILY, (Reported) Calcium Acetate (Phoslo) 667 Mg Cap, 667 MG PO WM, (Reported) Cinacalcet Hydrochloride (Sensipar) 30 Mg Tab, 30 MG PO 2XW, (Reported) MONDAY & MONDAY Docusate Sod/Senna (Senokot S 8.6-50 mg) 1 Tab Tab, 1 TAB PO BID, (Reported) Docusate Sodium (Colace) 100 Mg Cap, 200 MG PO QHS, (Reported) Ergocalciferol (Vitamin D) 50,000 Unit Cap, 50,000 UNIT PO QMONTH, (Reported) 19TH OF EVERY MONTH Gabapentin (Neurontin) 100 Mg Cap, 100 MG PO BID, (Reported) Hydralazine HCl (Hydralazine HCl) 25 Mg Tab, 25 MG PO BID, (Reported) Metoprolol Succinate (Metoprolol Succinate ER) 50 Mg Tab, 50 MG PO 4XWK, ( Reported) BID ON SUN, TUES, THURS, SAT Omeprazole (Omeprazole) 20 Mg Cap, 20 MG PO DAILY, (Reported) Paroxetine Hydrochloride (Paxil) 20 Mg Tab, 20 MG PO DAILY, (Reported) Vitamin B Cmplx/Vitc/Folic Ac (Nephro-Jake Rx 1 mg) 1 Tab Tab, 1 TAB PO DAILY, ( Reported) Warfarin Sod (Coumadin) 5 Mg Tab, 5 MG PO QPM, (Reported) Scheduled PRN (Flonase Allergy Relief) 50 Mcg/Act Spr, 1 SPRAY NA DAILY PRN for NASAL CONGESTION, (Reported) (Enema) 1 Amina Amina, 1 AMINA [place] DAILY PRN for CONSTIPATION, (Reported) Acetaminophen (Tylenol) 325 Mg Tab, 650 MG PO Q6H PRN for PAIN / FEVER, ( Reported) Acetaminophen/Hydrocodone ([place], Anexsia 5/325) 1 Tab Tab, 1 TAB PO Q6H PRN for PAIN, (Reported) Bisacodyl (Bisacodyl) 10 Mg Sup, 10 MG [place] DAILY PRN for CONSTIPATION, (Reported) Menthol (Bengay Ultra Strength) 5 % Pad, 1 PATCH TOP Q8H PRN for PAIN, (Reported ) APPLY TO NECK Menthol (Bengay Ultra Strength) 5 % Pad, 1 PATCH TOP Q8H PRN for PAIN, (Reported ) APPLY TO LOWER BACK GME ATTESTATION GME ATTESTATION My preceptor for this patient encounter was physically present in the building during the encounter and was fully available. As needed, all aspects of the patient interview, examination, medical decision making process, and medical care plan development were reviewed and approved by the preceptor. Preceptor is aware and concurs with the plan as stated in the body of this note and will attest to such by his/her cosignature. HATTIE HUERTA DO Feb 15, 2017 11:33
[2017-02-15] MEDS: NEPHRO-VIT TAB (NEPHROCAPS) PO SCH (13:03)
[2017-02-15] MEDS: NORCO, ANEXSIA 5/325MG TABLET (HYDROcodone/ACETAMINOPHEN) PO PRN ×2 (13:03→21:18)
[2017-02-15 13:15] VITALS: BP 150/70
--- NOTE | 2017-02-15 13:40 | IPNPDOC ---
Date Seen The patient was seen on 02/15/17. Progress Note SUBJECTIVE: Patient complains of fatigure but otherwise no abdominal pain today , and otherwise feels almost back to her "normal". No complaints of myoclonic jerking yesterday, neck stiffness, or shoulder soreness. She feels better than she did yesterday OBJECTIVE PHYSICAL EXAMINATION: VITAL SIGNS: Please see below. GENERAL: Pleasant elderly female lying in bed at a 30 angle sleeping peacefully easily arousable to verbal stimuli she does not appear to be in any acute distress whatsoever HEENT: Pupils equally round reactive to light she has moist mucous membranes no elevation and CVP CARDIOVASCULAR: S1-S2 irregularly irregular without any additional heart sounds appreciated. RESPIRATORY: Clear to auscultation. ABDOMINAL: Bowel sounds are present abdomen soft and nontender to palpation EXTREMITIES: No clubbing cyanosis or edema, left distal upper extremity fistula good thrill LABORATORY DATA: Please see below. MICROBIOLOGY: Please see below. IMAGING: CT scan abdomen and pelvis: Probable new subcapsular hematomas in the liver. The largest left renal cyst has significantly increased in size and is filled with mottled opaque material as interval changes compatible with hemorrhage, infection, neoplasm or combination of this cyst. Chest x-ray 918:Cardiomegaly with interstitial prominence is stable. No acute infiltrate. DVT prophylaxis ordered?: Therapeutic on Coumadin ASSESSMENT AND PLAN: This is a 66-year-old female with atrial fibrillation with rapid ventricular response and low-grade fever. PROBLEMS: 1. Atrial fibrillation with rapid ventricular response: The patient was reportedly told she had atrial fibrillation by Dr. Butler prior to having her fistula placed she is on Coumadin and reportedly started on this by him she is therapeutic she is rate controlled at this time with metoprolol 25 mg every 6 hours. A TSH is slightly low however not impressively low and echocardiogram has been ordered 2. Low-grade fever: Her urinalysis did come back abnormal she has been started on antibiotics we will follow up her cultures and narrow spectrum as appropriate. She does have a new finding of subscapular liver hematoma as well as a large cyst both possibly secondary to bleeding associated with Coumadin and acidosis is been stopped is also possibility of infected cyst on the kidney general surgery and urology consultations have been placed to Dr. Ogden in [place] respectively. 3. End-stage renal disease: Nephrology is also greatly appreciated she continues on dialysis Monday she is on Sensipar vitamin D Nephro-Jake. Robert 4. Hypertension: As outlined above the patient is on hydralazine she is also on metoprolol which we are titrating 5. Neuropathy: The patient is on Neurontin and she is bedridden shelter patient at her baseline 6. Mood disorder: Continue Paxil 7. Gastroesophageal reflux disease: Continue omeprazole DISPOSITION: We will continue to monitor Closely. VS, I&O, 24H, Arnaldobone Vital Signs/I&O Vital Signs Date Time Temp Pulse Resp B/P (MAP) Pulse Ox O2 Delivery O2 Flow Rate FiO2 02/15/17 13:15 100.3 95 18 150/70 (96) 94 Room Air 02/15/17 08:33 2.0 I&O- Last 24 Hours up to 6 AM 02/16/17 06:00 Intake Total 60 ml Output Total 3000 ml Balance -2940 ml Laboratory Data 24H LABS Laboratory Tests 2 02/14/17 15:08: Urine Appearance CLOUDYH, Urine Color DANNY, Urine pH 8.0, Urine Specific [place] 1.011, Urine Protein 2+H, Urine Glucose (UA) NEGATIVE, Urine Ketones NEGATIVE, Urine Urobilinogen 0.2, Urine Bilirubin NEGATIVE, Urine Leukocyte Esterase 3+H, Urine Blood 2+H, Urine Nitrite NEGATIVE, Urine WBC (Auto) TNTCH, Urine RBC (Auto) 27H, Urine Hyaline Casts (Auto) 0, Urine Bacteria (Auto) NEGATIVE, Urine Squamous Epithelial Cells 16, Urine Renal Epithelial Cells 1, Urine Sperm (Auto) 02/15/17 05:34: Prothrombin Time 37.2H, Prothromb Time International Ratio 3.54, Anion Gap 12, Glomerular Filtration Rate 7.8L, Blood Urea Nitrogen 57#H, Creatinine 5.76H, Sodium Level 131L, Potassium Level 4.7, Chloride Level 93L, Carbon Dioxide Level 26, Calcium Level 8.4L CBC/BMP Laboratory Tests 02/15/17 05:34 Red Blood Count 3.11 L, Mean Corpuscular Volume 95.2, Mean Corpuscular Hemoglobin 31.2, Mean Corpuscular Hemoglobin Concent 32.8, Red Cell Distribution Width 14.4, Calcium Level 8.4 L Microbiology Microbiology 02/13/17 Blood Culture - Preliminary, Resulted No Growth after 48 hours. All Specime... 02/13/17 Blood Culture - Preliminary, Resulted No Growth after 48 hours. All Specime... 02/13/17 Influenza Virus Type A Antigen - Final, Complete 02/13/17 Influenza Virus Type B Antigen - Final, Complete 02/14/17 Urine Culture - Final, Complete TERESA DARLING MD Feb 15, 2017 13:40
[2017-02-15 16:00] VITALS: BP 140/68
[2017-02-15] MEDS ORDERED: DARBEPOETIN 100 MCG/0.5 ML *DIALYSIS* SYRINGE (J0882) SQ ONE (17:00)
[2017-02-15] MEDS ORDERED: FUROSEMIDE 40 MG/4 ML VIAL (J1940) IV SCH (17:00)
--- NOTE | 2017-02-15 17:22 | IPN ---
DATE: 02/15/2017 SUBJECTIVE: Patient was seen and examined at the bedside today morning during hemodialysis procedure. Patient was tolerating the hemodialysis procedure well. Last 24-hour events were noted. Patient got a CT scan of the abdomen and pelvis done yesterday, which showed subcapsular hematoma in the liver, and there was a large cyst in the left kidney, suspicious for infection versus hemorrhage versus a neoplasm. REVIEW OF SYSTEMS: Patient denies any chills or rigors. She does report some low-grade temperature. She denies any nausea, vomiting, chest pain, shortness of breath. She does report mild abdominal pain as well. Rest of review of systems is negative. OBJECTIVE: Vital signs: Temperature is 99 degrees Fahrenheit, blood pressure is 118/68, pulse is 70, respiratory rate of 18, saturating 94% on room air. Intake and output: Urine output is not recorded. Weight in the bed scale is 70.5 kg. PHYSICAL EXAMINATION: GENERAL: Patient is awake, alert, oriented times three, lying in bed getting hemodialysis done. HEAD AND NECK: Extraocular muscles intact. Pupils equally round and reactive to light. Mucous membranes are moist. Neck is supple. There is no jugular venous distention (JVD). CARDIOVASCULAR: S1, S2, irregularly irregular heart rate. No murmur, rub, or gallop. RESPIRATORY: Chest is clear to auscultation bilaterally. Bilateral equal air entry. No rales or rhonchi. ABDOMEN: Soft, mildly tender to deep palpation in the left lower quadrant. No ascites. No organomegaly. EXTREMITIES: No clubbing or cyanosis. Pulses are 2+. CENTRAL NERVOUS SYSTEM: No focal neurological deficit. Power is 5/5 in bilateral upper extremities. Patient reports that she cannot walk. LABORATORY REVIEW: CBC showed a WBC of 10.6, which is higher than yesterday, hemoglobin 9.7, platelets of 197. INR is 3.5. Urinalysis showed it was cloudy with 3+ leukocyte esterase and too numerous to count WBC and some RBC as well. BMP this morning showed sodium 131, potassium 4.7, chloride 93, bicarbonate 26, BUN 57, creatinine is 5.7, calcium 8.4. Urine culture showed that the specimen might have been contaminated. Blood cultures are negative so far. IMAGING: A CT scan of the abdomen and pelvis done yesterday showed probable new subcapsular hematomas in the liver. Largest left renal cyst has significant increase in size and filled with mottled material, which can be hemorrhage, infection, or neoplasm. CURRENT INPATIENT MEDICATIONS: Patient's medications were reviewed by me. She was started on cefepime 0.5 gram intravenous (IV) every 24 hours starting today. Warfarin was held today morning. ASSESSMENT: A 66-year-old female with past medical history of end-stage renal disease, on hemodialysis, chronic atrial fibrillation, admitted at this time with low-grade fevers and atrial fibrillation with rapid ventricular response (RVR). She was found to have subcapsular hematomas in the liver and large left renal cyst. PLAN: 1. End-stage renal disease, on hemodialysis. Patient is being dialyzed according to her schedule. Today we shall try to remove 3 liters of fluid as tolerated by her blood pressure. 2. Atrial fibrillation with RVR. Patient's heart rate is better controlled at this time. Continue current dose of metoprolol. Coumadin has been stopped because of supratherapeutic INR and subcapsular hematomas. 3. Subcapsular hematomas of the liver. Surgical consult is pending. Most likely the management is going to be conservative. Coumadin was stopped. Rest of the management as per surgical recommendations. 4. Large left renal cyst, suspicious for infection, versus hemorrhage, versus mass. I have empirically started the patient on cefepime 0.5 gram IV daily for infected cyst and fevers. Urology consult is pending. Further management will be according to urology recommendations. 5. Anemia and end-stage renal disease. Hemoglobin is slightly suboptimal. Patient will be started on Aranesp. 6. Hypertension. Blood pressure is acceptable at this time. Continue current dose of metoprolol and hydralazine. The plan of care was discussed with the hospitalist, Dr. Gautam Garza.
--- NOTE | 2017-02-15 18:09 | SMCUROLCON ---
Urology Consultation General Date of Consultation 02/15/17 Reason For Consultation This patient is seen for A-Fib W Rapid Ventricular Response. History of Present Illness This is a 66 y/o F w/ a PMH significant for A fib (on coumadin), ESRD on HD, admitted to the hospital for a fib w/ RVR. A CT A/P was obtained for low grade fevers and was notable for b/l atrophic kidneys w/ multiple cysts and a lesion on the left kidney that had the appearance of a renal cyst w/ internal hemorrhage, a tumor, or a possible infected cyst. We are consulted for evaluation. Her CT was also notable for a subcapsular liver hematoma. The patient denies having any left flank pain. She did note the onset of mild left lower abdominal pain yesterday. She does make urine, but only small amounts. She denies hematuria. She denies flank trauma. Of note, her INR yesterday was 2.5, and was 3.5 this morning. Past Medical History Medical History see HPI Surgical Hstory C section x2, left hip surgery Medications Current Medications Current Medications Acetaminophen (Tylenol Tab) 650 mg Q6H PRN PO PAIN / FEVER Last administered on 02/14/17 21:16; Start 02/13/17 at 13:00; Stop 03/15/17 at 12:59 Acetaminophen/ Hydrocodone Bitart (Doss, Anexsia 5/325) 1 tab Q6H PRN PO PAIN Last administered on 02/15/17 13:03; Start 02/13/17 at 13:00; Stop 02/20/17 at 12:59 Aspirin (Ecotrin) 81 mg DAILY PO Last administered on 02/15/17 06:26; Start at 09:00; Stop 03/16/17 at 08:59 Bisacodyl (Dulcolax Suppository) 10 mg DAILY PRN [place] CONSTIPATION; Start at 13:00; Stop 03/15/17 at 12:59 Calcium Acetate (Phoslo) 667 mg WM PO Last administered on 02/15/17 17:05; Start 02/13/17 at 12:30; Stop 03/15/17 at 12:29 Cefepime HCl 0.5 gm/Dextrose 50 ml @ 100 mls/hr Q24H IV Last administered on 13:05; Start 02/15/17 at 11:00; Stop 02/22/17 at 10:59 Cinacalcet (Sensipar) 30 mg SuWe@0900 PO Last administered on 02/15/17 13:03; Start 02/15/17 at 09:00; Stop 03/17/17 at 08:59 Docusate Sodium (Colace) 200 mg QHS PO Last administered on 02/14/17 21:12; Start 02/13/17 at 21:00; Stop 03/15/17 at 20:59 Fluticasone Propionate (Flonase 0.05% Nasal [place]) 1 SPRAY IN EACH NOSTRIL DAILY PRN NA NASAL CONGESTION; Start 02/13/17 at 13:00; Stop 03/15/17 at 12:59 Furosemide (LASIX injection) 40 mg BID@ IV Last administered on 02/15/17 17:04; Start 02/15/17 at 17:00; Stop 03/17/17 at 16:59 Gabapentin (Neurontin) 100 mg BID PO Last administered on 02/15/17 06:26; Start 02/13/17 at 21:00; Stop 03/15/17 at 20:59 Home Med (Med Rec Complete!) ASDIRECTED XX ; Start 02/13/17 at 12:30; Stop at 12:35; Status DC Hydralazine HCl (Apresoline) 25 mg BID PO Last administered on 02/15/17 06:26 ; Start 02/13/17 at 21:00; Stop 03/15/17 at 20:59 Metoprolol Tartrate (Lopressor) 5 mg STAT STAT IV Last administered on 11:00; Start 02/13/17 at 10:52; Stop 02/13/17 at 10:53; Status DC Metoprolol Tartrate (Lopressor) 25 mg Q6H PO Last administered on 02/15/17 17: 05; Start 02/13/17 at 12:00; Stop 03/15/17 at 11:59 Omeprazole (PriLOSEC) 20 mg DAILY PO Last administered on 02/15/17 06:26; Start 02/14/17 at 09:00; Stop 03/16/17 at 08:59 Paroxetine HCl (PAXil) 20 mg DAILY PO Last administered on 02/15/17 06:27; Start 02/14/17 at 09:00; Stop 03/16/17 at 08:59 Senna/Docusate Sodium (Senokot S) 1 tab BID PO Last administered on 02/15/17 06:26; Start 02/13/17 at 21:00; Stop 03/15/17 at 20:59 Sodium Biphosphate/ Sodium Phosphate (Fleet Enema) 1 ea DAILY PRN [place] CONSTIPATION; Start 02/13/17 at 13:00; Stop 03/15/17 at 12:59 Vitamin B Complex/ Vit C/Folic Acid (Nephro-Jake Rx) 1 tab DAILY PO Last administered on 02/15/17 13:03; Start 02/14/17 at 09:00; Stop 03/16/17 at 08: 59 Vitamin D (Drisdol) 50,000 units Q30D@0900 PO Last administered on 02/14/17 08 :46; Start 02/14/17 at 09:00; Stop 03/16/17 at 08:59 Warfarin Sodium (Coumadin) 5 mg DAILY@1700 PO Last administered on 02/14/17 17 :19; Start 02/13/17 at 17:00; Stop 02/15/17 at 08:30; Status DC Allergies Allergies: Coded Allergies: Kena (Verified Allergy, Severe, KENA SKINS - RASH, THROAT SWELLING, DIFF BREATHING, 09/06/11) Review of Systems Constitutional: Reports: Fever (low-grade) Skin: Denies: Rash, Lesions, Breakdown, Nail Changes Pulmonary: Denies: Dyspnea, Cough Cardiovascular: Denies Chest Pain Gastrointestinal: Denies: Nausea, Vomiting Genitourinary: Denies: Dysuria, Hematuria Musculoskeletal: Reports: Neck Pain, Denies: Back Pain Psych: Reports: Mood Normal Physical Examination General Exam: Alert, Cooperative, No Acute Distress Chest Exam: Clear to auscultation Heart Exam: Rate Normal, Other Abdomen Exam: Soft, Tenderness (mild LLQ tenderness), Other (mild left CVA tenderness) Skin Exam: Nl turgor and temperature Neuro Exam: Normal Speech Psych Exam: Mental status NL, Mood NL Vital Signs/I&O Vital Signs Date Time Temp Pulse Resp B/P (MAP) Pulse Ox O2 Delivery O2 Flow Rate FiO2 9/20/17 17:05 96 140/68 02/15/17 16:00 99.5 18 94 Room Air 02/15/17 08:33 2.0 I&O- Last 24 Hours up to 6 AM 02/16/17 06:00 Intake Total 300 ml Output Total 3000 ml Balance -2700 ml Laboratory Data 24H Labs Laboratory Tests 2 02/15/17 05:34: Prothrombin Time 37.2H, Prothromb Time International Ratio 3.54, Anion Gap 12, Glomerular Filtration Rate 7.8L, Blood Urea Nitrogen 57#H, Creatinine 5.76H, Sodium Level 131L, Potassium Level 4.7, Chloride Level 93L, Carbon Dioxide Level 26, Calcium Level 8.4L CBC/BMP Laboratory Tests 02/15/17 05:34 Red Blood Count 3.11 L, Mean Corpuscular Volume 95.2, Mean Corpuscular Hemoglobin 31.2, Mean Corpuscular Hemoglobin Concent 32.8, Red Cell Distribution Width 14.4, Calcium Level 8.4 L Microbiology Microbiology 02/13/17 Blood Culture - Preliminary, Resulted No Growth after 48 hours. All Specime... 02/13/17 Blood Culture - Preliminary, Resulted No Growth after 48 hours. All Specime... 02/13/17 Influenza Virus Type A Antigen - Final, Complete 02/13/17 Influenza Virus Type B Antigen - Final, Complete 02/14/17 Urine Culture - Final, Complete Assessment This is a 66 y/o F admitted w/ A fib w/ RVR found to have an 8cm left renal cystic enhancing lesion. Based on appearance and comparison to her old CT, I suspect the enhancing material is blood inside the cyst, although a tumor is also possible. An infected cyst is a lot less likely. Her coumadin is on hold and per discussion w/ primary, the plan is likely to hold it for a week given the liver subcapsular hemorrhage. Her Hb has been stable. Plan - agree w/ holding coumadin for at least a week - as this is likely a hemorrhagic cyst, nothing else needs to be done at this time - I would recommend a follow CT scan in 3 months to confirm that this is not a tumor - my office will contact the patient to arrange follow up and we will arrange her imaging at that time BARTOLO RIVERA MD Feb 15, 2017 18:09
[2017-02-15 20:00] VITALS: BP 140/88
[2017-02-15] MEDS: DOCUSATE SODIUM 100 MG CAP PO SCH (21:17)
[2017-02-16] VITALS: BP 103/55
[2017-02-16] MEDS: METOPROLOL TART 25 MG TABLET PO SCH ×2 (00:14→06:21)
[2017-02-16] MEDS: ACETAMINOPHEN TAB 650MG DOSE (2X325MG) PO PRN (01:58)
[2017-02-16 04:00] VITALS: BP 108/63
[2017-02-16 05:28] LABS: MEAN CORPUSCULAR HEMOGLOBIN 31.4 pg (27.0-33.0); MEAN CORPUSCULAR HGB CONC 33.1 g/dl (32.0-36.5); MEAN CORPUSCULAR VOLUME 94.9 fl (80.0-96.0); RED CELL DISTRIBUTION WIDTH 14.2 % (11.5-14.5); WHITE BLOOD COUNT 7.2 K/mm3 (4.0-10.0)
[2017-02-16 05:30] LABS: INR 3.3
[2017-02-16 05:46] LABS: CALCIUM LEVEL 8.3 MG/DL (8.8-10.2); CREATININE FOR GFR 3.88 MG/DL (0.55-1.02); GLOMERULAR FILTRATION RATE 12.4 (>45); POTASSIUM SERUM 3.7 MEQ/L (3.5-5.1)
[2017-02-16 06:21] VITALS: BP 106/64
[2017-02-16 07:30] VITALS: BP 112/61
[2017-02-16] MEDS: OMEPRAZOLE 20 MG CAP PO SCH (08:20)
[2017-02-16] MEDS: SENOKOT S TAB PO SCH (08:20)
[2017-02-16] MEDS: CALCIUM ACETATE 667 MG GELCAP PO SCH ×2 (08:20→11:25)
[2017-02-16] MEDS: ASPIRIN 81 MG ENTERIC TAB PO SCH (08:20)
[2017-02-16] MEDS: PARoxetine 20 MG TAB PO SCH (08:20)
[2017-02-16] MEDS: GABAPENTIN 100 MG CAP PO SCH (08:20)
[2017-02-16] MEDS: NEPHRO-VIT TAB (NEPHROCAPS) PO SCH (08:21)
[2017-02-16] MEDS: NORCO, ANEXSIA 5/325MG TABLET (HYDROcodone/ACETAMINOPHEN) PO PRN (08:21)
--- NOTE | 2017-02-16 08:53 | IPNPDOC ---
Date Seen The patient was seen on 02/16/17. Progress Note SUBJECTIVE: Patient is a stenosis 66-year-old female, currently living at the [facility]. She presents to the ED on 02/13/2017 because of low-grade fever and poor color. She was found to be in atrial fibrillation with rapid ventricular response. An abdominal CT was performed on 02/14/2017 because of stomach pain. The CT revealed an incidental probable new subscapular hematoma on the liver, as well as a left renal cyst had significant increase in size. Surgery was consulted because of subscapular hematoma. This morning patient is feeling fine, she is well rested. She reports pain to her left abdomen, but denies any pain on the right side of her abdomen. OBJECTIVE PHYSICAL EXAMINATION: VITAL SIGNS: Please see below. GENERAL: Alert, oriented, laying in bed CARDIOVASCULAR: S1-S2 present, no murmur, no gallops RESPIRATORY: Lungs are clear to auscultate bilaterally ABDOMINAL: Tender to palpate left on LLQ, no pain elicited on palpation of the right RLQ of RUQ. No organomegaly noted. EXTREMITIES: Movement, no deformities LABORATORY DATA: Please see below. MICROBIOLOGY: Please see below. IMAGING: Abdominal CT on 02/14/2017 was read as probably new subscapular hematoma the liver, a large renal cyst that has significant increase in size and filled with moderate opaque material as interval changes compatible with hemorrhage, infection, neoplasm or combination of the cyst ASSESSMENT AND PLAN: A 66-year-old white female, with an incidental finding of subscapular hematoma on the liver. Patient has a history of atrial fibrillation with rapid ventricular response. PROBLEMS: 1. Subscapular Hematoma on the liver: Patient's wafarin has been discontinued. It can be restated in about 7 days. It is my expectation that the hematoma should regress on its own accord. No further imaging is required, unless there is clinical signs of an expanding hematoma. 2. Renal cyst: Urology and Nephrology are on board for management. DISPOSITION: Stable Thank you for including surgery in this patient care. VS, I&O, 24H, Fishbone Vital Signs/I&O Vital Signs Date Time Temp Pulse Resp B/P (MAP) Pulse Ox O2 Delivery O2 Flow Rate FiO2 02/16/17 08:32 Room Air 02/16/17 08:21 20 02/16/17 07:30 98.2 84 112/61 (78) 92 02/15/17 08:33 2.0 I&O- Last 24 Hours up to 6 AM 02/17/17 06:00 Intake Total 0 ml Output Total 0 ml Balance 0 ml Laboratory Data 24H LABS Laboratory Tests 2 02/16/17 05:10: Prothrombin Time 35.1H, Prothromb Time International Ratio 3.30, Anion Gap 11, Glomerular Filtration Rate 12.4L, Blood Urea Nitrogen 31H, Creatinine 3.88H, Sodium Level 136, Potassium Level 3.7#, Chloride Level 97L, Carbon Dioxide Level 28, Calcium Level 8.3L CBC/BMP Laboratory Tests 02/16/17 05:10 Red Blood Count 2.92 L, Mean Corpuscular Volume 94.9, Mean Corpuscular Hemoglobin 31.4, Mean Corpuscular Hemoglobin Concent 33.1, Red Cell Distribution Width 14.2, Calcium Level 8.3 L Microbiology Microbiology 02/13/17 Blood Culture - Preliminary, Resulted No Growth after 48 hours. All Specime... 02/13/17 Blood Culture - Preliminary, Resulted No Growth after 48 hours. All Specime... 02/13/17 Influenza Virus Type A Antigen - Final, Complete 02/13/17 Influenza Virus Type B Antigen - Final, Complete 02/14/17 Urine Culture - Final, Complete GME ATTESTATION GME ATTESTATION My preceptor for this patient encounter was physically present in the building during the encounter and was fully available. As needed, all aspects of the patient interview, examination, medical decision making process, and medical care plan development were reviewed and approved by the preceptor. Preceptor is aware and concurs with the plan as stated in the body of this note and will attest to such by his/her cosignature. HATTIE HUERTA DO Feb 16, 2017 08:53
[2017-02-16] MEDS ORDERED: INFLUENZA VIRUS VACCINE HIGH DOSE 0.5 ML SYRINGE (90662) IM ONE (10:00)
[2017-02-16] MEDS ORDERED: PERCOCET 5MG/325MG TAB PO PRN (10:15)
[2017-02-16] MEDS ORDERED: CEFD300CAP PO (10:21)
[2017-02-16] MEDS ORDERED: LOPR1TAB6 PO (10:21)
[2017-02-16] MEDS ORDERED: CEFDINIR 300 MG CAP (OMNICEF) PO SCH (14:00)
[2017-02-16] MEDS ORDERED: METOPROLOL TART 50 MG TAB PO SCH (14:00)
--- NOTE | 2017-02-16 14:26 | DSES ---
DATE OF ADMISSION: 02/13/2017 DATE OF DISCHARGE: DISCHARGE DIAGNOSIS: Subcapsular liver hematoma. SECONDARY DIAGNOSES: 1. Renal cyst. 2. Atrial fibrillation with rapid ventricular response. 3. End stage renal disease on hemodialysis. 4. Hypertension. 5. Neuropathy. 6. Urinary tract infection. 7. Mood disorder. 8. Gastroesophageal reflux disease. HOSPITAL COURSE: The patient is a 66-year-old, bedridden [facility] who presented with low grade fever and atrial fibrillation with rapid ventricular response. She has known atrial fibrillation and was recently started on Coumadin by Dr. Butler prior to having her left distal upper extremity fistula placed. However, she presented with low grade fevers and in a rapid ventricular response. She has been in the progressive care unit. Her metoprolol was titrated up. Her rate was controlled. She did have some abdominal pain and a CT scan of her abdomen and pelvis revealed new subcapsular hematoma in the liver as well as large renal cyst filled with mild opaque material concerning for hemorrhage, infection, neoplasm. The patient was seen in consultation by Dr. Marx whose help was greatly appreciated during this stay in coordinating dialysis and management of her care, as well as, Dr. Ogden of general surgery, and Dr. Retana of urology. It was felt that no intervention was required for her liver hematoma and that she should just be kept off Coumadin for 7-10 days. I did speak with Dr. Retana who said he feels the cyst is likely filled with blood and it was also secondary to hemorrhage related to Coumadin. He will recheck a CT scan in six months and have her followup in his office for further care. If this is not resolved by that time, he would consider intervention to further assess the nature of the cyst. The patient's Coumadin was held. She was on empiric antibiotics for an abnormal urinalysis. Her fever defervesced. Her abdominal pain resolved. SUBJECTIVE: This morning, the patient tells me that she feels back to her normal. She denies any chest pain, fevers, chills, or shortness of breath. She tells me that she has chronic neck and shoulder pain, but this is not any more different than it has been previously. OBJECTIVE: VITAL SIGNS: Temperature 98.2. Pulse 84. Respiratory rate 20. Blood pressure 112/61. Oxygen saturation 92% on room air. GENERAL: She is a frail, elderly, female sleeping peacefully when I enter the room, but easily arousable to verbal stimuli. HEENT: Cranial nerves II-XII grossly intact. She has moist mucous membranes. No elevation of CVP at this time. CARDIOVASCULAR EXAM: S1, S2. Irregularly irregular. RESPIRATORY EXAM: Clear. ABDOMINAL EXAM: Benign. Obese. EXTREMITIES: She has a fistula in the left distal upper extremity with a positive thrill. No clubbing, cyanosis or edema. LABORATORY STUDIES: WBC 7.2, hemoglobin 9.2 and platelet count 203. Chemistry panel with sodium 136, potassium 3.7, chloride 97, bicarbonate 28, BUN 31, creatinine 3.8. There are 2 sets of cardiac enzymes that were negative. TSH was slightly low. INR today is 3.3. Urinalysis (UA) revealed too numerous to count WBCs, 3+ leukocyte esterase, but was negative for bacteria and urine culture was contaminated. Blood cultures were negative. Flu swab was negative. IMAGING: As outlined above. ASSESSMENT AND PLAN: This is a 66-year-old female with subcapsular hematoma of the liver as well as renal cyst who presented with atrial fibrillation with rapid ventricular response and low grade fevers. PROBLEMS: 1. Atrial fibrillation with rapid ventricular response. She was newly diagnosed prior to placement of her fistula by Dr. Butler and was started on Coumadin. At this point, we titrated up her metoprolol to 50 every 8 hours, to be held prior to dialysis. Her TSH was slightly low; however, not impressively low. Recommend outpatient followup and rechecking with her primary care provider (PCP). An echocardiogram was ordered and revealed severe right atrial dilation, severe tricuspid regurgitation, inferior cava plethora, very small pericardial effusion, normal LV internal dimensions and wall thickness, ejection fraction (EF) approximately 50%. Her anticoagulation is on hold. A lengthy discussion was had with both her and her sister informing them she is at risk for strokes while she is not on anticoagulation; however, given her recent bleeding it is necessary for her to be off it for at least a two week period. She can revisit the subject with her PCP in two weeks about potentially restarting Coumadin. All questions were answered to their satisfaction. A significant amount of time was spent at bedside with the family conference. 2. Urinary tract infection. The patient had slow grade fevers. There was concern given her abnormal UA, although her culture was negative. She was empirically on broad spectrum antibiotics. At this time, she will be discharged on Cefdinir 300 mg every other day renal dosing for dialysis to complete a seven day course. 3. Renal cyst. Possibly an area of infection. Should she have recurrence of her fevers following treatment, this may warrant sooner intervention and reevaluation; however, Dr. Retana did evaluate the patient and felt as though her cyst was likely blood filled related to recent initiation of Coumadin and he will follow up with her in six months with repeat imaging to reassess her renal cyst. 4. Subcapsular liver hematoma. Dr. Ogden's help has been appreciated. At this time, her abdominal pain has resolved. Should she have worsening abdominal pain, consider checking H/H and reimaging to assess for any change in her liver hematoma. For the time being, her Coumadin has been stopped and her symptoms have resolved. 5. End stage renal disease on hemodialysis. Nephrology's help is greatly appreciated. She is continued on her regular Monday, Monday, Monday regimen. She is on Sensipar, vitamin D and Nephro-Jake as well as PhosLo. 6. Hypertension. At this time, we are holding her hydralazine and we have titrated up her metoprolol. 7. Neuropathy. She is on Neurontin and she is bedridden at her baseline. 8. Mood disorder. She is on Paxil. 9. Gastroesophageal reflux disease. She is on omeprazole. DISPOSITION: The patient is medically stable for discharge back to [facility] at this time. Her clinical symptoms have resolved. She has improved to her baseline. She is to followup with her PCP within 7 days and followup with Dr. Retana in 6 months. Her activity is as prior to her admission. Her diet is as prior to admission. She is to hold her Coumadin for two weeks secondary to liver hematoma and reassess with PCP the risks versus benefits of restarting. MEDICATIONS AT TIME OF DISCHARGE: - Cefdinir 300 mg every 48 hours - metoprolol tartrate 50 mg every 8 hours - hold prior to hemodialysis Monday, Monday, Monday - Tylenol 650 mg every 6 hours as needed for pain or fever - [place] 5/325 one tablet every 6 hours as needed for pain - aspirin 81 mg daily - Bisacodyl 10 mg as needed for constipation daily - PhosLo 667 mg by mouth with meals - Cinacalcet 30 mg twice a week, Monday and Monday - docusate/senna S one tablet by mouth twice a day - Colace 200 mg at bedtime - enema rectally as needed for constipation - vitamin D 50,000 units every month on the - Flonase 50 mcg nasally as needed for nasal congestion - Neurontin 100 mg twice a day - menthol BenGay 5% patch topically every 8 hours as needed for neck pain - menthol BenGay 5% patch topically every 8 hours as needed for pain to low back - omeprazole 20 mg daily - Paxil 20 mg daily - vitamin B complex one tablet daily - vitamin for hair as per the patient one tablet daily Greater than 30 minutes was spent organizing disposition.
--- NOTE | 2017-02-16 23:07 | IPN ---
DATE: 02/16/2017 SUBJECTIVE: The patient was seen and examined at the bedside today, morning. She was laying in the bed, afebrile, hemodynamically stable. No active complaints. Last 24-hour events were noted. Consultation notes and recommendations from general surgery and from urology were also reviewed, and I appreciate their recommendations. There is no surgical intervention needed at this time and both the surgical service recommended holding the Coumadin for about 1-2 weeks. REVIEW OF SYSTEMS: The patient denies any fever, chills, rigors, headache, nausea, vomiting, chest pain, shortness of breath. She does report mild pain in the abdomen on the left side. She denies any dysuria or hematuria. The rest of the review of systems is negative. OBJECTIVE: VITAL SIGNS: Temperature is 98.2 degrees Fahrenheit. Blood pressure is 112/61, pulse is 84, respiratory rate of 20, saturating 92% on room air. INTAKE/OUTPUT: Urine output recorded as 50 mL so far today since overnight. Ultrafiltration with hemodialysis was 3 liters. Weight on the bed scale is 68 kg. PHYSICAL EXAMINATION: GENERAL: The patient is awake, alert, oriented times three, laying in bed, in no apparent distress. HEAD AND NECK EXAM: Extraocular muscles intact. Pupils equally round and reactive to light. Mucous membranes are moist. Neck is supple. There is no jugular venous distention (JVD). CARDIOVASCULAR: S1, S2, irregularly irregular heart rate. No murmur, rub or gallop. RESPIRATORY: Chest is clear to auscultation bilaterally. Bilateral equal air entry. No rales or rhonchi. ABDOMEN: Abdomen is soft, mildly tender to deep palpation in the left lower quadrant. No ascites. No organomegaly. EXTREMITIES: No clubbing or cyanosis. Pulses are 2+. CENTRAL NERVOUS SYSTEM: No focal neurological deficit. Power is 5/5 in bilateral upper extremities. LAB REVIEW: CBC showed a WBC of 7.2, hemoglobin 9.2, platelets are 203. BMP showed sodium 136, potassium 3.7, chloride 97, bicarbonate 28, BUN 31, creatinine is 3.8, calcium is 8.3, INR is 3.3. CURRENT INPATIENT MEDICATIONS: The patient's medications were all reviewed by me. Intravenous (IV) cefepime was stopped, and she has been started on Omnicef 300 mg by mouth every 48 hours. ASSESSMENT: A 66-year-old female with a past medical history of end-stage renal disease, on hemodialysis, chronic atrial fibrillation, admitted at this time with low-grade fever and atrial fibrillation with rapid ventricular rate. She was found to have subcapsular hematoma in the liver and large left renal cyst, which is possibly because of hemorrhage into the cyst. PLAN: 1. End-stage renal disease, on hemodialysis. Patient was dialyzed according to her regular schedule yesterday. No urgent need of hemodialysis to be done today. 2. Atrial fibrillation with rapid ventricular rate. The patient's heart rate is controlled at this time. Continue current dose of metoprolol. International normalized ratio (INR) is supratherapeutic and patient has hematoma, so anticoagulation has been held. 3. Subcapsular hematoma of the liver. The patient was seen by surgery. Recommendation is to hold the Coumadin and conservative management at this time. 4. Large left renal cyst. Patient was having low grade fevers. She was empirically started on cefepime. White cell count is better. The patient is not having fevers at this time. The patient was also seen by urology, and they suspect that there is a hemorrhage into the cyst and they also agree with holding the Coumadin for about 1-2 weeks and repeating another CT scan in about 3 months from now to look at the interval change in the cyst size and echogenicity. No surgical intervention needed at this time. 5. Anemia in end-stage renal disease. The patient was given a dose of Aranesp. The rest of anemia management is as per outpatient protocol. 6. Disposition: It is okay to discharge the patient from a nephrology standpoint. Plan of care was discussed with the hospitalist, Dr. Gautam Garza.
== END 2017-02-16 13:49 | DRG 308 ==
LOC: M ED 10:19 → M ED INP 12:37 → M PCU 17:14
PROVIDERS: ADMIT Family Medicine; ATTEND Internal Medicine Nephrology
PROC: 5A1D00Z (ICD-10-PCS; principal; 2017-02-13)
DX: I48.91 Unspecified atrial fibrillation (principal); N18.6 End stage renal disease; N25.81 Secondary hyperparathyroidism of renal origin; I12.0 Hypertensive chronic kidney disease with stage 5 chronic kidney disease or end stage renal disease; Z99.2 Dependence on renal dialysis; G62.9 Polyneuropathy, unspecified; D63.1 Anemia in chronic kidney disease; K21.9 Gastro-esophageal reflux disease without esophagitis; M81.0 Age-related osteoporosis without current pathological fracture; E78.5 Hyperlipidemia, unspecified; M54.2 Cervicalgia; Z79.82 Long term (current) use of aspirin; Z79.01 Long term (current) use of anticoagulants; Z91.018 Allergy to other foods; Z79.899 Other long term (current) drug therapy; F32.9 Major depressive disorder, single episode, unspecified; F41.9 Anxiety disorder, unspecified; K76.89 Other specified diseases of liver; N28.1 Cyst of kidney, acquired

== ENCOUNTER → 2017-02-21 | Outpatient (REF) | payer MEDICARE, MEDICAID ==
[~2017-02-21] MED LIST changes: +ASPI81TAEC PO; +BENA25CA4 PO; +BENPAD EXT; +BENPAD TOP; +CEFD300CAP PO; +ENEM1ENE4 PR; +ENEMENE16 PR; +EUCECRE3 TOP; +FLON1SPR; +LEXA1TAB2 PO; +METO1TAB7 PO; +METO50TA7 PO; +OMEP20CA3 PO; +OXYC1TAB23 PO; +PAXI20TA29 PO; +PROC5TA PO; +VITATAB PO
[2017-02-21 09:15] LABS: MEAN CORPUSCULAR HEMOGLOBIN 30.4 pg (27.0-33.0); MEAN CORPUSCULAR HGB CONC 31.2 g/dl (32.0-36.5); MEAN CORPUSCULAR VOLUME 97.6 fl (80.0-96.0); WHITE BLOOD COUNT 7.5 10^3/uL (4.0-10.0)
[2017-02-21 09:41] LABS: CALCIUM LEVEL 8.7 MG/DL (8.8-10.2); CREATININE FOR GFR 4.18 MG/DL (0.55-1.02); GLOMERULAR FILTRATION RATE 11.3 (>45); POTASSIUM SERUM 4.4 MEQ/L (3.5-5.1)
[2017-02-21 14:57] LABS: PERCENT SATURATION 15.4 % (13.2-45.0)
== END ==
PROVIDERS: ATTEND Internal Medicine
DX: K76.89 Other specified diseases of liver (principal)

== ENCOUNTER → 2017-02-24 | Outpatient (REF) ==
[2017-02-24 12:09] LABS: MEAN CORPUSCULAR HGB CONC 32.2 g/dl (32.0-36.5); MEAN CORPUSCULAR VOLUME 96.4 fl (80.0-96.0); RED CELL DISTRIBUTION WIDTH 15.1 % (11.5-14.5); WHITE BLOOD COUNT 7.1 10^3/uL (4.0-10.0)
[2017-02-24 12:58] LABS: CALCIUM LEVEL 8.6 MG/DL (8.8-10.2); CREATININE FOR GFR 5.11 MG/DL (0.55-1.02); POTASSIUM SERUM 4.2 MEQ/L (3.5-5.1)
== END ==
PROVIDERS: ATTEND Internal Medicine
DX: R10.9 Unspecified abdominal pain (principal)

== ENCOUNTER → 2017-02-24 | Outpatient (REF) | payer MEDICARE, MEDICAID | PROVIDERS: ATTEND Internal Medicine | DX: K76.89 Other specified diseases of liver (principal) ==

== ENCOUNTER → 2017-02-27 | Outpatient (CLI) | payer MEDICARE, MEDICAID ==
--- NOTE | 2017-02-27 09:17 | REP ---
Complete abdomen ultrasound: Studies correlate with the CT of the abdomen pelvis dated 02/04/2017. On the comparison CT there were two suspected subcapsular hematomas in the right lobe of the liver. These are not identified on the ultrasound study today. They could have resolved in the interim or could have been a small focal collections of ascites on the CT. There is a negative Tang's sign to transducer pressure. Multiple gallbladder calculi are identified, similar to the comparison CT. There is no intrahepatic or extrahepatic biliary duct dilatation, the common duct measures 4.3 mm in diameter. The hepatic parenchyma is homogeneous. No hepatic masses are identified. The visualized portion of the pancreatic head is unremarkable. The pancreatic body and tail are obscured by bowel gas. The spleen measures 7.2 cm length and is normal size, homogeneous and otherwise unremarkable. The right kidney is atrophic measuring 6.8 cm craniocaudad length and contains numerous cysts, compatible with end-stage kidney. The left kidney measures 7.7 craniocaudad length and is atrophic and contains numerous cysts compatible with end-stage kidney. There is a large heterogeneous cyst maximally measuring 7.2 cm, similar to the cyst described on the comparison CT. Upon review of the CT, there is induration of the retroperitoneal fat adjacent to this cyst. By CT, this is a change from prior CTs and could represent neoplasm, infection or hemorrhage into this cyst. There is no abdominal aortic aneurysm of the proximal aorta below the diaphragm or at the level of the renal arteries. The aorta distal to this is obscured by bowel gas. Impression: The suspected subcapsular hematomas of the liver on the comparison CT are not identified on the ultrasound study today. These may have resolved or may have been small collections of ascites on the comparison CT. There is a large abnormal cyst in the left kidney as described. The examination is technically difficult because of bowel gas and the patient's inability to assume a decubitus position. Signed by Supa Metz MD 02/27/2017 09:09 A
== END ==
LOC: M RAD 08:09
PROVIDERS: ATTEND Physician Assistant
DX: R10.9 Unspecified abdominal pain (principal); K76.89 Other specified diseases of liver; N28.1 Cyst of kidney, acquired

== ENCOUNTER → 2017-02-28 | Outpatient (CLI) | payer MEDICARE, MEDICAID ==
[~2017-02-28] MED LIST changes: +HEPARIN 1,000 UNITS/ML 10ML VIAL (FOR RADIOLOGY& DIALYSIS ONLY) As Ordered ONE; +ISOVUE-300 61% 50ML VIAL (Q9967) As Ordered ONE; +MIDAZOLAM INJ 2 MG/2 ML VIAL (J2250) As Ordered ONE; +fentaNYL 100 MCG/2 ML INJECTION (J3010) As Ordered ONE
--- NOTE | 2017-03-08 09:32 | REPKIM ---
DATE OF PROCEDURE: 02/28/2017 ATTENDING SURGEON: Dr. Taj Butler PREOPERATIVE DIAGNOSIS: End-stage renal disease. Dysfunctional left radiocephalic arteriovenous fistula with excessive bleeding on decannulation. POSTOPERATIVE DIAGNOSIS: End-stage renal disease. Dysfunctional left radiocephalic arteriovenous fistula with excessive bleeding on decannulation. PROCEDURE: Left radiocephalic arteriovenous fistulogram. INDICATION: Patient is a 66-year-old female with a left radiocephalic arteriovenous fistula that has had excessive bleeding on decannulation and mild pulsatility. Patient also has aneurysmal degeneration of the fistula. Patient will undergo a fistulogram with angioplasty and/or stent. Risks, benefits, and alternative treatment options were discussed with the patient. ANESTHESIA: Was local with 1 mL of 2% lidocaine. COMPLICATIONS: None. DRAINS: None. SPECIMENS: None. IMPLANTS: None. CONTRAST: 4 mL. PROCEDURE: Patient was taken to the angiography suite, placed supine on the angiography room table and the left upper extremity was prepped and draped in a standard surgical fashion. The arteriovenous fistula was cannulated with a micropuncture needle after anesthetizing the overlying skin with 1% lidocaine. This was upsized to a micropuncture sheath which was then used to perform a fistulogram showing no intervention was required. The sheath was removed and manual compression was applied at the puncture site for hemostasis. Dressings were then applied. All instruments, sponge, and needle counts were correct at the end of the case. There were no complications. Dr. Butler was present for and directed the entire case. The patient was transferred to the holding area and subsequently discharged in stable condition. RADIOLOGIC SUPERVISION INTERPRETATION: The left radiocephalic arteriovenous fistula was aneurysmal and widely patent with no stenosis or occlusion noted. This was patent into the upper arm where there was good outflow through the deep and superficial venous systems into the central venous system with no stenosis of occlusion noted. Bleeding is most likely secondary to the aneurysmal degeneration and the thin subcutaneous tissue overlying the fistula and the patient may require revision in order to prevent difficulties with bleeding.
== END | disposition home or self-care (01) ==
LOC: M IRPRO 10:27
PROVIDERS: ATTEND Surgery Vascular Surgery
DX: T82.590A Other mechanical complication of surgically created arteriovenous fistula, initial encounter (principal); N18.6 End stage renal disease

== ENCOUNTER 2017-03-01 16:19 | Inpatient (IN) | payer MEDICARE, MEDICAID ==
[~2017-03-01 16:19] MED LIST changes: -ASPI81TAEC PO; -BENA25CA4 PO; -BENPAD EXT; -ENEMENE16 PR; -EUCECRE3 TOP; -LEXA1TAB2 PO; -METO50TA7 PO; -OXYC1TAB23 PO; -PROC5TA PO
[2017-03-01] MEDS ORDERED: COLA100C5 PO (16:47)
[2017-03-01] MEDS ORDERED: PROC5TA PO (16:47)
[2017-03-01] MEDS ORDERED: COUM1TAB17 PO (16:47)
[2017-03-01] MEDS ORDERED: OXYC1TAB23 PO (16:47)
[2017-03-01] MEDS ORDERED: LEXA1TAB2 PO (16:47)
[2017-03-01] MEDS ORDERED: NEPHTAB PO (16:47)
[2017-03-01 17:27] LABS: BASO % 0.4 % (0.0-1.0); EOS # 0.2 10^3/uL (0.0-0.50); EOS % 2.9 % (0.0-3.0); IMMATURE GRANULOCYTE % 0.3 % (0-0); LYMPH # 0.7 10^3/uL (1.5-4.5); LYMPH % 8.8 % (24.0-44.0); MEAN CORPUSCULAR HGB CONC 31.5 g/dl (32.0-36.5); MEAN CORPUSCULAR VOLUME 98.4 fl (80.0-96.0); MONO % 14.2 % (0.0-5.0); NEUTROPHILS # 5.5 10^3/uL (1.8-7.7); NEUTROPHILS % 73.4 % (36.0-66.0); PLATELET COUNT, AUTOMATED 284 10^3/uL (150-450); RED CELL DISTRIBUTION WIDTH 16.9 % (11.5-14.5); WHITE BLOOD COUNT 7.5 10^3/uL (4.0-10.0)
[2017-03-01 17:28] LABS: ADD MORPHOLOGY? NO; MONO # 1.1 10^3/uL (0.0-0.8)
[2017-03-01 17:32] LABS: INR 1.25
[2017-03-01 17:47] LABS: ALBUMIN 3.2 GM/DL (3.2-5.2); ALBUMIN/GLOBULIN RATIO 0.76 (1.00-1.93); ALKALINE PHOSPHATASE 153 U/L (45-117); ALT/SGPT 14 U/L (12-78); ANION GAP 8 MEQ/L (8-16); AST/SGOT 15 U/L (15-37); BILIRUBIN,DIRECT 0.4 MG/DL (0.0-0.2); BLOOD UREA NITROGEN 14 MG/DL (7-18); CALCIUM LEVEL 8.9 MG/DL (8.8-10.2); CARBON DIOXIDE LEVEL 30 MEQ/L (21-32); CHLORIDE LEVEL 99 MEQ/L (98-107); CREATININE FOR GFR 3.33 MG/DL (0.55-1.02); GLOMERULAR FILTRATION RATE 14.7 (>45); GLUCOSE, FASTING 89 MG/DL (80-110); POTASSIUM SERUM 3.5 MEQ/L (3.5-5.1); SODIUM LEVEL 137 MEQ/L (136-145); TOTAL PROTEIN 7.4 GM/DL (6.4-8.2)
[2017-03-01] MEDS ORDERED: METOPROLOL TART 50 MG TAB PO ONE (19:00)
[2017-03-01] MEDS ORDERED: MORPHINE 4 MG/ML 1ML SYRINGE IV ONE (19:00)
[2017-03-01] MEDS ORDERED: GASTROGRAFIN SOLUTION 30ML (Q9963) PO ONE ×2 (19:15)
[2017-03-01] MEDS ORDERED: METOPROLOL 5 MG/5 ML VIAL IV STA (21:08)
[2017-03-01] MEDS ORDERED: ONDANSETRON 4MG/2ML VIAL (J2405) IV ONE ×2 (21:15→23:45)
--- NOTE | 2017-03-01 22:00 | REPUSA ---
CLINICAL HISTORY: Diffuse abdominal pain. COMPARISON: 02/14/2017. TECHNIQUE: Multiple axial, coronal, sagittal CT images were obtained through the abdomen and pelvis without administration of IV contrast material. Oral contrast was administered. COMMENTS: The liver is of uniform attenuation without mass or defect. There is no intra or extrahepatic biliar y ductal dilatation. The spleen is normal. Multiple calcified gallstones are identified. The pancr eas is of normal contour and attenuation characteristics. There is no evidence of adrenal mass. Both kidneys are severely atrophic with numerous bilateral renal cysts present. There is additional solid lesion noted which appears to be originating from the mid pole of left kidney, mostly exophytic measures approximately 7.8 x 6.1 cm. 6 mm non-obstructing calculus is noted in the mid pole of the right kidney. There is no evidence for appendicitis. There is no bowel wall thickening. No evidence for small or large bowel obstruction. There is no evidence of abdominal lymphadenopathy. Heather-hepatic ascites is again seen. There is no evidence of intrinsic or extrinsic bladder mass. There is no pelvic ascites or lymphaden opathy. The uterus and ovaries appear atrophic. Images of the lung bases show no evidence of pleural or parenchymal mass. The heart is severely enla rged. Pericardial effusion is present. Trace bilateral pleural effusions are present. The patient is status post ORIF of the left proximal femur. Old fracture involving the left inferior pubic ramus. IMPRESSION: 1. Overall no significant interval change. 2. Multiple calcified gallstones. 3. Both kidneys are severely atrophic with numerous bilateral renal cysts. Solid lesion at the mid pole of left kidney, mostly exophytic. 4. Non-obstructing calculus in the mid pole of the right kidney. 5. Heather-hepatic ascites is again seen. 6. The uterus and ovaries appear atrophic. 7. Severe cardiomegaly. 8. Pericardial effusion. 9. Trace bilateral pleural effusions. 10. Status post ORIF of the left proximal femur. 11. Old fracture involving the left inferior pubic ramus.
[2017-03-01] MEDS: METOPROLOL 5 MG/5 ML VIAL IV SCH ×2 (23:09→23:22)
[2017-03-02] MEDS ORDERED: ENEMENE16 PR (00:18)
[2017-03-02] MEDS ORDERED: BENPAD EXT (00:18)
[2017-03-02] MEDS ORDERED: ASPI81TAEC PO (00:18)
[2017-03-02] MEDS ORDERED: METO50TA7 PO (00:18)
[2017-03-02 02:07] VITALS: BP 128/81
[2017-03-02] MEDS ORDERED: BISACODYL 10 MG SUPP PR PRN (02:45)
[2017-03-02] MEDS ORDERED: ACETAMINOPHEN 325 MG TAB PO PRN (02:45)
[2017-03-02] MEDS ORDERED: PERCOCET 5MG/325MG TAB PO PRN (02:45)
[2017-03-02] MEDS ORDERED: PROCHLORPERAZINE 5 MG TAB (S0183) PO PRN (02:45)
[2017-03-02 04:17] VITALS: BP 127/83
[2017-03-02 08:00] VITALS: BP 136/76
[2017-03-02] MEDS: ANALGESIC BALM CRM 120 GM TOP SCH ×3 (09:00→20:53)
[2017-03-02] MEDS ORDERED: EUCERIN 120GM CREAM TOP SCH (09:00)
[2017-03-02] MEDS ORDERED: FUROSEMIDE 40 MG/4 ML VIAL (J1940) IV SCH (09:00)
[2017-03-02] MEDS: METOPROLOL TART 50 MG TAB PO SCH ×2 (09:10→20:53)
[2017-03-02] MEDS: ESCITALOPRAM OXALATE 10 MG TAB (LEXAPRO) PO SCH (09:10)
[2017-03-02] MEDS: NEPHRO-VIT TAB (NEPHROCAPS) PO SCH (09:10)
[2017-03-02] MEDS: SENOKOT S TAB PO SCH ×2 (09:10→20:52)
[2017-03-02] MEDS: CALCIUM ACETATE 667 MG GELCAP PO SCH ×3 (09:10→18:31)
--- NOTE | 2017-03-02 09:12 | HPEPDOC ---
General Date of Admission Mar 02, 2017 at 00:31 Primary Care Physician: WESTON PARK DO Attending Physician: KEILA JOE MD Chief Complaint The patient is a 66-year-old female admitted with a reason for visit of Afib With Rvr/Generalized Pruritus. Source: Patient, Family Exam Limitations: Clinical conditions Timing/Duration: Day(s) Severity: Severe Associated Symptoms: Loss of appetite, Shortness of breath History of Present Illness 66-year-old female, history of ESRD on hemodialysis, atrial fibrillation, not currently on Coumadin, due to multiple bleeding episodes during av fistula placement, presented with abdominal pain, generalized weakness, shortness of breath. Patient denies any chest pain, recent travel, sick contact. She complains of abdominal distention but denies any constipation or diarrhea. Her dyspnea on exertion is getting worse. There is no fever or chills. She lives in [facility] and was sent for generalized weakness Home Medications Scheduled Aspirin (Aspirin EC) 81 Mg Tabec, 81 MG PO DAILY, (Reported) Calcium Acetate (Phoslo) 667 Mg Cap, 667 MG PO WM, (Reported) Cinacalcet Hydrochloride (Sensipar) 30 Mg Tab, 30 MG PO ASDIRECTED, (Reported) TAKES ON MONDAY AND MONDAY IN THE MORNING Docusate Sod/Senna (Senokot S 8.6-50 mg) 1 Tab Tab, 1 TAB PO BID, (Reported) Docusate Sodium (Colace) 100 Mg Cap, 100 MG PO QHS, (Reported) Ergocalciferol (Vitamin D) 50,000 Unit Cap, 50,000 UNIT PO ASDIRECTED, (Reported ) TAKES ON THE OF EACH MONTH Escitalopram Oxalate (Lexapro) 20 Mg Tab, 20 MG PO DAILY, (Reported) Metoprolol Tartrate (Metoprolol Tartrate) 50 Mg Tab, 50 MG PO ASDIRECTED, ( Reported) TAKES 50MG BID @ 1400, 2200 ON MONDAY, MONDAY AND MONDAY. TAKES 50MG Q8H @ 0600, 1400, 2200 ON MONDAY, MONDAY, MONDAY AND MONDAY. HOLD IF AP<60 OR SBP<100. Prochlorperazine (Prochlorperazine Maleate) 5 Mg Tab, 5 MG PO Q6H, (Reported) Vitamin B Cmplx/Vitc/Folic Ac (Nephro-Jake Rx 1 mg) 1 Tab Tab, 1 TAB PO DAILY, ( Reported) Warfarin Sod (Coumadin) 5 Mg Tab, 5 MG PO QPM, (Reported) Scheduled PRN Acetaminophen (Tylenol) 325 Mg Tab, 650 MG PO Q6H PRN for PAIN / FEVER, ( Reported) Bisacodyl (Bisacodyl) 10 Mg Sup, 10 MG DE DAILY PRN for CONSTIPATION, (Reported) Menthol (Bengay Ultra Strength) 5 % Pad, 1 PATCH TOP Q8H PRN for PAIN, (Reported ) USES ON LOWER BACK Menthol (Bengay Ultra Strength) 5 % Pad, 1 PATCH EXT Q8H PRN for PAIN, (Reported ) USES ON LOWER BACK Oxycodone/Acetaminophen (Oxycodone/Acetaminophen 5-325 mg) 1 Tab Tab, 1 TAB PO Q6H PRN for PAIN SCALE 6-10, (Reported) Sodium Phosphate/Biphosphate (Enema 7-19 gm/118Ml) 1 Amina Amina, 1 AMINA DE DAILY PRN for CONSTIPATION, (Reported) Allergies Coded Allergies: [place] (Verified Allergy, Severe, KENA SKINS - RASH, THROAT SWELLING, DIFF BREATHING, 09/06/11) Past Medical History Medical History ESRD on hemodialysis, atrial fibrillation, arthritis, hypertension Surgical History 2. Hip replacement ankle surgery Social History * Smoker: Denies Alcohol: Denies Drugs: denies Recent Travel/Sick Contacts: Denies: Recent travel, Recent sick contacts Psychosocial History: Depression Review of Symptoms Constitutional: Reports: Malaise, Weakness, Fatigue, Denies: Chills, Fever, Night Sweats Eyes: Denies: Pain, Vision change ENT: Denies: Head Aches, Ear Pain, Dysphagia Skin: Denies: Rash, Lesions, Breakdown Pulmonary: Denies: Dyspnea, Cough Cardiovascular: Reports: Palpitations, Orthopnea, Paroxysmal Noc. Dyspnea, Denies: Chest Pain, Lt Headedness Gastrointestinal: Reports: Abdominal Pain, Other Symptoms (distention), Denies: Nausea, Vomiting, Diarrhea Genitourinary: Denies: Dysuria, Frequency, Incontinence, Retention Hematologic: Denies: Bruising, Bleeding Excessively Musculoskeletal: Denies: Neck Pain, Back Pain, Joint Pain, Muscle Pain, Spasms Neurological: Denies: Weakness, Numbness, Change in speech, Confusion Psych: Reports: Mood Normal, Denies: Depression, Memory Issues Physical Examination General Exam: Positive: Alert, Severe Distress Eye Exam: Positive: PERRLA, Conjunctiva & lids normal, EOMI, Negative: Sclera icteric ENT Exam: Positive: Atraumatic, Mucous membr. moist/pink, Pharynx Normal Neck Exam: Positive: Supple, Negative: JVD, thyromegaly Chest Exam: Positive: Rhonchi, Wheezing, Diminished Heart Exam: Positive: Rate Normal, Regular Rhythm, Normal S1, Normal S2, Negative: Murmurs, Rubs Telemetry: Positive: No significant arrhythmia Abdomen Exam: Positive: BS Hypoactive, Soft, Tenderness, Other (distended), Negative: Hepatospenomegaly Extremity Exam: Positive: Normal pulses, Negative: Clubbing, Cyanosis, Edema Skin Exam: Positive: Nl turgor and temperature, Negative: Breakdown, Lesion Neuro Exam: Positive: Normal Speech, Cranial Nerves 3-12 NL Psych Exam: Positive: Mental status NL, Mood NL, Oriented x 3 Vital Signs Vital Signs Date Time Temp Pulse Resp B/P (MAP) Pulse Ox O2 Delivery O2 Flow Rate FiO2 03/02/17 08:00 97.8 101 18 136/76 (96) 99 Nasal Cannula 1.0 Laboratory Data Labs 24H Laboratory Tests 2 03/01/17 17:07: Immature Granulocyte % (Auto) 0.3H, White Blood Count 7.5, Red Blood Count 3.10L , Hemoglobin 9.6L, Hematocrit 30.5L, Mean Corpuscular Volume 98.4H, Mean Corpuscular Hemoglobin 31.0, Mean Corpuscular Hemoglobin Concent 31.5L, Red Cell Distribution Width 16.9H, Platelet Count 284, Neutrophils (%) (Auto) 73.4H , Lymphocytes (%) (Auto) 8.8L, Monocytes (%) (Auto) 14.2H, Eosinophils (%) (Auto ) 2.9, Basophils (%) (Auto) 0.4, Neutrophils # (Auto) 5.5, Lymphocytes # (Auto) 0.7L, Monocytes # (Auto) 1.1H, Eosinophils # (Auto) 0.2, Basophils # (Auto) 0.0 , Immature Granulocyte # (Auto) 0.0, Nucleated Red Blood Cells % (auto) 0.0, Prothrombin Time 15.9H, Prothromb Time International Ratio 1.25, Anion Gap 8, Glomerular Filtration Rate 14.7L, Lactic Acid Level 1.2, Calcium Level 8.9, Aspartate Amino Transf (AST/SGOT) 15, Alanine Aminotransferase (ALT/SGPT) 14, Alkaline Phosphatase 153H, Total Bilirubin 1.0, Direct Bilirubin 0.4H, Total Creatine Kinase 28, Creatine Kinase MB 1.0, Creatine Kinase MB Relative Index 3.57, Troponin I < 0.02, Total Protein 7.4, Albumin 3.2, Albumin/Globulin Ratio 0.76L, Lipase 127 CBC/BMP Laboratory Tests 03/01/17 17:07 Red Blood Count 3.10 L, Mean Corpuscular Volume 98.4 H, Mean Corpuscular Hemoglobin 31.0, Mean Corpuscular Hemoglobin Concent 31.5 L, Red Cell Distribution Width 16.9 H, Neutrophils (%) (Auto) 73.4 H, Lymphocytes (%) (Auto ) 8.8 L, Monocytes (%) (Auto) 14.2 H, Eosinophils (%) (Auto) 2.9, Basophils (%) (Auto) 0.4, Neutrophils # (Auto) 5.5, Lymphocytes # (Auto) 0.7 L, Monocytes # ( Auto) 1.1 H, Eosinophils # (Auto) 0.2, Basophils # (Auto) 0.0 Assessment/Plan 66-year-old female, history of ESRD on hemodialysis, atrial fibrillation not on Coumadin, presented with abdominal pain and found to have ascites, pericardial effusion and pleural effusion Plan / VTE VTE Prophylaxis Ordered?: Yes Plan Plan ESRD on hemodialysis. Nephrology was consulted. Imaging showed severely atrophic bilateral kidneys with bilateral adrenal cyst. Continue with hemodialysis Monday, Monday, Monday. Continue PhosLo and Sensipar. Abdominal pain. CT scan showed. Ascites, gallstones and renal stone. Lasix 40 mg every 12 hours was started. Surgery will be followed as an outpatient for gallstone. 10 Renal stone. A 6 mm nonobstructing renal calculus in the inferior pole of right kidney. Urology will be followed as an outpatient. Since Pericardial effusion get echocardiogram. Continue with Lasix 40 mg every 12 hours IV. Continue Lopressor. Atrial fibrillation, rate controlled with the Lopressor 50 mg twice a day. Coumadin was on hold due to multiple bleeding episodes during any fistula placement. Cardiology need to be consulted for anticoagulation options. 10. Depression. Continue with Celexa Disposition This and will likely be discharged back to current living facility after she gets medically stable IVF: Discontinue Diet: Continue Current Activity: Continue Current Medications: Replete Electrolytes IV Diagnostics: Repeat Labs in AM Anticipated Discharge: Shelter RICHARD AGUILERA MD Mar 02, 2017 09:12
[2017-03-02 10:11] LABS: MEAN CORPUSCULAR HEMOGLOBIN 30.8 pg (27.0-33.0); MEAN CORPUSCULAR HGB CONC 30.2 g/dl (32.0-36.5); MEAN CORPUSCULAR VOLUME 101.9 fl (80.0-96.0); RED CELL DISTRIBUTION WIDTH 17.4 % (11.5-14.5); WHITE BLOOD COUNT 6.4 10^3/uL (4.0-10.0)
[2017-03-02 10:41] LABS: ALBUMIN 3.3 GM/DL (3.2-5.2); ALBUMIN/GLOBULIN RATIO 0.92 (1.00-1.93); BILIRUBIN,DIRECT 0.4 MG/DL (0.0-0.2); BILIRUBIN,TOTAL 1.1 MG/DL (0.2-1.0); CALCIUM LEVEL 8.5 MG/DL (8.8-10.2); CREATININE FOR GFR 4.37 MG/DL (0.55-1.02); GLOMERULAR FILTRATION RATE 10.8 (>45); POTASSIUM SERUM 4.5 MEQ/L (3.5-5.1); TOTAL PROTEIN 6.9 GM/DL (6.4-8.2)
[2017-03-02] MEDS ORDERED: diphenhydrAMINE 25 MG CAP PO ONE ×2 (11:00→23:15)
[2017-03-02] MEDS ORDERED: FAMOTIDINE 20 MG TAB PO ONE (11:00)
[2017-03-02] MEDS ORDERED: predniSONE 20 MG TAB PO ONE (11:00)
[2017-03-02] MEDS ORDERED: EUCERIN 120GM CREAM TOP PRN (11:15)
[2017-03-02 12:00] VITALS: BP 139/99
--- NOTE | 2017-03-02 12:37 | IPNPDOC ---
Subjective Date Seen The patient was seen on 03/02/17. Subjective Chief Complaint/HPI The patient is a 66-year-old female admitted for Afib With Rvr/Generalized Pruritus. Patient was seen and examined this morning at bedside. She states she didn't sleep well last night and feels very tired today. She also states she's been "itchy all over" and it unable to specify when this started. She states has a decreased appetite for about 3 weeks and has had 5 pound weight loss. She states that about a year ago she was diagnosed with A. fib by Dr. Butler and was started on Coumadin, but currently she is not taking her Coumadin for a few weeks due to excessive bleeding from her AV fistula site on the left forearm. Her nurse reports patient has been complaining of pruritus but other than that no events. No abnormal telemetry events noted. General: Reports: Fatigue, Denies: Normal Appetite ENT: Denies: Head Aches Skin: Reports: Rash (cheek bones biltareal and left shoulder, and sternal reigion. ), Itching (mutilple areas) Pulmonary: Denies: Dyspnea Cardiovascular: Reports: Edema (mid calf), Denies: Chest Pain, Orthopnea, Lt Headedness Gastrointestinal: Denies: Constipation Genitourinary: Denies: Dysuria, Frequency Neurological: Reports: Numbness (right hand) Objective Physical Examination General Exam: Positive: Alert, Cooperative, Mild Distress Eye Exam: Positive: PERRLA, EOMI, Sclera icteric, Negative: Conjunctiva & lids normal (pale conjunctiva) ENT Exam: Positive: Atraumatic, Mucous membr. moist/pink, Pharynx Normal Neck Exam: Positive: Supple, JVD (3cm from sternal angle on the left .), Negative: thyromegaly Chest Exam: Positive: Rales (BL bibasilar crackles with left greater than the right ), Negative: Clear to auscultation Heart Exam: Positive: Tachycardic, Irregular Rhythm (A. fib with HR of 90 ( chronic)), Normal S1, Normal S2, Negative: Murmurs, Rubs Telemetry: Positive: Atrial fibrillation Abdomen Exam: Positive: Normal bowel sounds, Soft, Negative: Tenderness, Hepatospenomegaly Extremity Exam: Positive: Edema (1+ pitting up to mid calf bilateral), Negative: Clubbing, Cyanosis, Normal pulses (strong irregular irregular in all four pulses. ) Skin Exam: Positive: Nl turgor and temperature, Rash (erythematous maculopapular rash along the distrubtion of the right zygomatic arch, chest), Lesion (excoriations on right upper arm and left shoulder ), Pruritus ( generalized ), Other skin issue (dry skin on feet BL), Negative: Breakdown Neuro Exam: Positive: Normal Speech Psych Exam: Positive: Mental status NL, Mood NL Assessment /Plan Assessment 1. Generalized pruritus unknown source and unknown time. Patient had a Lopressor added to her medication list a couple weeks and is unknown if this is related. We will give Predisone 40mgx1, Diphenhydramine 25mgx1,Famotidine 20gx1 and Eucerin lotion. 2. End stage renal disease stage 5. GFR 14.7. CT reveals atrophic kidneys with BL cysts, a solid exophytic lesion on the left kidney, calculus in the mid-pole of the right kidney, and jennifer-hepatic ascites. Nephrology has been consulted. Patient receives hemodialysis three times a week (/W/). Patient is on calcium supplements and Cinacalcet 30mg. 3. A. fib with RVR. Currently rate controlled with Metoprolol tartrate ( Lopressor) 50mg BID. Patient stopped taking warfarin per nephro request 2 weeks ago from excessive bleeding from her dialysis site. Confirmed with Dr. Begum it is ok to restart Coumadin, patient will get her normal 5mg this evening. INR yesterday was 1.25 will continue to follow inpatient to reach therapeutic levels 2-3. 4. Pericardial effusion. This a chronic problem that has been previously seen in imaging. Patient is not complaining of any chest pain or shortness of breath this morning. Patient is in A. fib with controlled rate. She is scheduled for an echocardiogram today, will await for results. 5. BL pleural effusion. Likely due to ESRD. Bilateral crackles can be appreciated on exam. Will continue with Furosemide 40mg IV Q12H to decrease preload. Will continue to monitor the patient. 6. Anemia. Macrocytic. Patient's hemoglobin on admission was 9.8. Hematocrit 32.4. Patient has been taking supplementation of b12/folate at home. Patient denies any lightheadedness and shortness of breath. Will continue to monitor with daily labs. 7. Abdominal pain. Resolved as of this morning. Patient states she has not had a bowel movement today. She is currently on Senna/Ducosate 1 tab BID, Dulcolax 10mg PRN, Colace 100mg. CT scan of the abdomen performed yesterday revealed jennifer-hepatic ascites, and a calcified gallstone. Today patient has no pain on palpation of the abdomen. 8. DVT prophylaxis. Knee-high sequentials and TEDS. Plan/VTE VTE Prophylaxis Ordered?: Yes Plan IVF: Discontinue Diet: Continue Current Activity: Continue Current Medications: Replete Electrolytes IV Diagnostics: Repeat Labs in AM Anticipated Discharge: Snf VS, I&O, 24H, [facility] Vital Signs/I&O Vital Signs Date Time Temp Pulse Resp B/P (MAP) Pulse Ox O2 Delivery O2 Flow Rate FiO2 03/02/17 09:10 96 141/95 03/02/17 08:00 97.8 18 99 Nasal Cannula 1.0 I&O- Last 24 Hours up to 6 AM 03/03/17 06:00 Intake Total 0 ml Output Total 0 ml Balance 0 ml Laboratory Data 24H LABS Laboratory Tests 2 03/01/17 17:07: Immature Granulocyte % (Auto) 0.3H, White Blood Count 7.5, Red Blood Count 3.10L , Hemoglobin 9.6L, Hematocrit 30.5L, Mean Corpuscular Volume 98.4H, Mean Corpuscular Hemoglobin 31.0, Mean Corpuscular Hemoglobin Concent 31.5L, Red Cell Distribution Width 16.9H, Platelet Count 284, Neutrophils (%) (Auto) 73.4H , Lymphocytes (%) (Auto) 8.8L, Monocytes (%) (Auto) 14.2H, Eosinophils (%) (Auto ) 2.9, Basophils (%) (Auto) 0.4, Neutrophils # (Auto) 5.5, Lymphocytes # (Auto) 0.7L, Monocytes # (Auto) 1.1H, Eosinophils # (Auto) 0.2, Basophils # (Auto) 0.0 , Immature Granulocyte # (Auto) 0.0, Nucleated Red Blood Cells % (auto) 0.0, Prothrombin Time 15.9H, Prothromb Time International Ratio 1.25, Anion Gap 8, Glomerular Filtration Rate 14.7L, Lactic Acid Level 1.2, Calcium Level 8.9, Aspartate Amino Transf (AST/SGOT) 15, Alanine Aminotransferase (ALT/SGPT) 14, Alkaline Phosphatase 153H, Total Bilirubin 1.0, Direct Bilirubin 0.4H, Total Creatine Kinase 28, Creatine Kinase MB 1.0, Creatine Kinase MB Relative Index 3.57, Troponin I < 0.02, Total Protein 7.4, Albumin 3.2, Albumin/Globulin Ratio 0.76L, Lipase 127 CBC/BMP Laboratory Tests 03/01/17 17:07 Red Blood Count 3.10 L, Mean Corpuscular Volume 98.4 H, Mean Corpuscular Hemoglobin 31.0, Mean Corpuscular Hemoglobin Concent 31.5 L, Red Cell Distribution Width 16.9 H, Neutrophils (%) (Auto) 73.4 H, Lymphocytes (%) (Auto ) 8.8 L, Monocytes (%) (Auto) 14.2 H, Eosinophils (%) (Auto) 2.9, Basophils (%) (Auto) 0.4, Neutrophils # (Auto) 5.5, Lymphocytes # (Auto) 0.7 L, Monocytes # ( Auto) 1.1 H, Eosinophils # (Auto) 0.2, Basophils # (Auto) 0.0 GME ATTESTATION GME ATTESTATION My preceptor for this patient encounter was physically present in the building during the encounter and was fully available. As needed, all aspects of the patient interview, examination, medical decision making process, and medical care plan development were reviewed and approved by the preceptor. Preceptor is aware and concurs with the plan as stated in the body of this note and will attest to such by his/her cosignature. HIMANSHU SONG DO Mar 02, 2017 10:52
[2017-03-02 16:00] VITALS: BP 151/70
[2017-03-02] MEDS ORDERED: WARFARIN SOD 5 MG TAB PO SCH (17:00)
--- NOTE | 2017-03-02 19:16 | ECGEPIP ---
Stationary ECG Study [facility] Test Date: 2017-03-01 Pat Name: MAICOL OCASIO Department: Room: [place] [address] Gender: F Service Manager: joyce : 1950 Requested By: Ana M Gutierrez Order Number: [id number] Reading MD: Pola Troy Measurements Intervals [place] Rate: 107 P: [place]: 0 QRS: 40 QRSD: 100 T: 265 QT: 361 QTc: 483 Interpretive Statements ATRIAL FIBRILLATION WITH RAPID VENTRICULAR RESPONSE WITH ABERRANT CONDUCTION OR VENTRICULAR PREMATURE COMPLEXES NONSPECIFIC ST & T-WAVE ABNORMALITY SIMILAR 02/14/17 Electronically Signed On 03-02-2017 19:15:45 EDT by Pola Troy
[2017-03-02 20:00] VITALS: BP 133/82
[2017-03-02] MEDS ORDERED: DOCUSATE SODIUM 100 MG CAP PO SCH (21:00)
--- NOTE | 2017-03-02 22:20 | CR ---
DATE OF CONSULTATION: 03/02/2017 REQUESTING PHYSICIAN: Dr. Jon Zarate REASON FOR CONSULTATION: Management of end-stage renal disease, on hemodialysis. CHIEF COMPLAINT: Atrial fibrillation with rapid ventricular response. HISTORY OF PRESENT ILLNESS: Margarita Hua is a 66-year-old female with a past medical history of end-stage renal disease, on hemodialysis every Monday, Monday, Monday via left upper extremity fistula and has been hemodialysis dependent for about the past 10 years. She is a resident of [facility] and was sent fro [place] to the emergency room after she was found to have a rapid heart rate. She also has a complaint of generalized pruritus. Of note, the patient's Coumadin has been on hold recently due to recurrent episodes of prolonged bleeding from the fistula. She did have a fistulogram yesterday with Dr. Butler. She is seen in the emergency room this afternoon in no acute distress and with no acute complaint. Her last dialysis treatment was yesterday, which she tolerated with no issues. PAST MEDICAL HISTORY: 1. End-stage renal disease, on dialysis every Monday, Monday, Monday secondary to hypertensive nephrosclerosis. Has been dialysis dependent about 9- 10 years. 2. Patient also has a history of atrial fibrillation. 3. Osteoporosis. 4. Hypertension. 5. Dyslipidemia. 6. Degenerative arthritis. 7. Gastroesophageal reflux disease. 8. Anemia of chronic disease. 9. History of depression. 10. History of peripheral neuropathy. 11. She is chronically bed ridden. PAST SURGICAL HISTORY: 1. She is status post left hip replacement. 2. Status post open reduction, internal fixation of the right ankle. 3. Status post right knee surgery. 4. Status post left forearm arteriovenous (AV) fistula placement. 5. History of section times two in the past. ALLERGIES: No known drug allergies. FAMILY HISTORY: No significant family history of end-stage renal disease requiring dialysis. SOCIAL HISTORY: The patient is a resident at [facility]. There is no history of illicit drugs, alcohol abuse, or smoking. REVIEW OF SYSTEMS: The patient denied headaches. Denies dyspnea, shortness of breath. Denies chest pain. Denies nausea, vomiting, diarrhea. Review of systems positive for generalized pruritus, fatigue, lower extremity edema. VITAL SIGNS: Temperature 98, pulse 78, respiratory rate 18, blood pressure 139/99, saturating 94% on room air. PHYSICAL EXAMINATION: The patient is seen in the emergency room. She is awake, alert, oriented times three, cooperative. She is scratching her head and in no acute distress. HEAD AND NECK: Extraocular muscles are intact. Mucous membranes are moist. Neck is supple. CHEST: S1, S2, irregular rhythm. Radial pulse 2+. Pitting edema 1+ in the lower extremities to below the knee. RESPIRATORY: Seen on room air in no acute respiratory distress. Symmetric air entry. Decreased at bases. ABDOMEN: Soft, obese, nontender. EXTREMITIES: Healed surgical incision on the right ankle, right knee. Edema 1+ in the lower extremities. NEUROLOGIC: Appropriately interactive and conversational. No focal deficit appreciated. PSYCHIATRIC: Appropriate mood and affect. LABORATORY DATA: White count 6.4, hemoglobin 9.8, platelets 257. Sodium 137, potassium 4.5, bicarbonate 28, calcium corrected 9. Total bilirubin 1.1. IMAGING: CT abdomen and pelvis is significant for a solid lesion at the mid pole of the left kidney and severe cardiomegaly. INPATIENT MEDICATIONS: - PhosLo with meals - Sensipar 30 mg twice weekly - Benadryl - Lexapro 20 mg by mouth daily - topical Eucerin - metoprolol 50 mg by mouth twice a day - prednisone 40 mg by mouth times one - Coumadin 5 mg by mouth daily ASSESSMENT AND PLAN: 1. End-stage renal disease, on hemodialysis, via left upper extremity fistula with history of fistula bleeding. Patient's Coumadin has been on hold. She reports she had a fistulogram yesterday. She will have her next hemodialysis treatment tomorrow, March 03, as per her maintenance schedule. 2. Solid lesion, mid pole, left kidney. Suspicious for a renal neoplasm. The patient will be referred to [facility] in [place] for likely nephrectomy. This will be completed as a outpatient. 3. Generalized pruritus. The primary team has given the patient prednisone, diphenhydramine, Pepcid, and Eucerin. 4. Atrial fibrillation with rapid ventricular response (RVR). Currently rate controlled with metoprolol. Okay to resume Coumadin. INR currently subtherapeutic. Will continue to monitor at her outpatient dialysis for fistula bleed. 5. Volume overload with lower extremity edema, pleural effusions, perihepatic ascites, chronic pericardial effusion. Intravenous (IV) Lasix discontinued due to severely atrophic [place] kidneys and chronic prolonged hemodialysis of about 10 years' duration. Volume status managed through dialysis. The patient will need her dry weight to be challenged regularly in the outpatient hemodialysis setting. She does have an echocardiogram pending and had severe cardiomegaly on CT scan. 6. Anemia. Continue with Aranesp and iron per protocol. Hemoglobin is close to target goal of 10. Okay to resume Coumadin. Thank you for involving us in the care of this patient. We will continue to follow the patient along with you. edited: 03/06/2017 1423 tkf [email or web address]
[2017-03-03] VITALS: BP 127/82
[2017-03-03 04:00] VITALS: BP 139/93
--- NOTE | 2017-03-03 05:55 | ECGEPIP ---
Stationary ECG Study [facility] - ED Test Date: 2017-03-01 Pat Name: MAICOL OCASIO Department: Room: - Gender: F Superintendent Greens: joyce : 1950 Requested By: Ana M Gutierrez Order Number: [id number] Reading MD: Waldemar Liao Measurements Intervals [place] Rate: 86 P: [place]: 0 QRS: 40 QRSD: 97 T: 255 QT: 401 QTc: 482 Interpretive Statements ATRIAL FIBRILLATION WITH ABERRANT CONDUCTION OR VENTRICULAR PREMATURE COMPLEXES NONSPECIFIC ST & T-WAVE ABNORMALITY SIMILAR TO 02/14/17 Electronically Signed On 03-03-2017 5:55:06 EDT by Waldemar Liao
[2017-03-03 07:35] LABS: BASO % 0.3 % (0.0-1.0); EOS % 0.2 % (0.0-3.0); IMMATURE GRANULOCYTE % 0.5 % (0-0); LYMPH # 0.9 10^3/uL (1.5-4.5); LYMPH % 13.9 % (24.0-44.0); MEAN CORPUSCULAR HEMOGLOBIN 30.4 pg (27.0-33.0); MEAN CORPUSCULAR VOLUME 98.1 fl (80.0-96.0); MONO # 1.1 10^3/uL (0.0-0.8); MONO % 16.8 % (0.0-5.0); NEUTROPHILS # 4.4 10^3/uL (1.8-7.7); NEUTROPHILS % 68.3 % (36.0-66.0); PLATELET COUNT, AUTOMATED 276 10^3/uL (150-450); WHITE BLOOD COUNT 6.4 10^3/uL (4.0-10.0)
[2017-03-03 07:38] LABS: INR 1.32
[2017-03-03 08:00] VITALS: BP 113/69
[2017-03-03 08:04] LABS: CALCIUM LEVEL 8.5 MG/DL (8.8-10.2); CREATININE FOR GFR 5.64 MG/DL (0.55-1.02); POTASSIUM SERUM 4.7 MEQ/L (3.5-5.1)
[2017-03-03] MEDS: ANALGESIC BALM CRM 120 GM TOP SCH (09:00)
[2017-03-03] MEDS ORDERED: EUCECRE3 TOP (09:23)
[2017-03-03] MEDS ORDERED: BENA25CA4 PO (09:23)
[2017-03-03 09:30] VITALS: BP 113/69
[2017-03-03] MEDS: CALCIUM ACETATE 667 MG GELCAP PO SCH (09:30)
[2017-03-03] MEDS: NEPHRO-VIT TAB (NEPHROCAPS) PO SCH (09:30)
[2017-03-03] MEDS: METOPROLOL TART 50 MG TAB PO SCH (09:30)
[2017-03-03] MEDS: ESCITALOPRAM OXALATE 10 MG TAB (LEXAPRO) PO SCH (09:30)
[2017-03-03] MEDS: SENOKOT S TAB PO SCH (09:30)
[2017-03-03] MEDS ORDERED: WARF05TA PO (09:41)
--- NOTE | 2017-03-03 10:18 | DS.PDOC ---
Discharge Summary General Date of Admission Mar 02, 2017 at 00:31 Date of Discharge Mar 03, 2017 Primary Care Physician: WESTON PARK DO Attending Physician: KEILA JOE MD Specialist/Consultants Involve: ABILIO BEGUM DO Discharge Summary PROCEDURES PERFORMED DURING STAY: CT of abdomen/pelvis w/ PO contrast ADMITTING DIAGNOSES: 1.ESRD on hemodialysis. 2.Abdominal pain. 3.Renal stone. 4.Pericardial effusion 5.Atrial fibrillation 6.Depression. DISCHARGE DIAGNOSES: 1. Generalized pruritus unknown source and unknown time. 2. End stage renal disease stage 5. 3. A. fib with RVR. 4. Pericardial effusion. 5. BL pleural effusion. 6. Anemia. COMPLICATIONS/CHIEF COMPLAINT: Afib With Rvr/Generalized Pruritus. HISTORY OF PRESENT ILLNESS: 66-year-old female, history of ESRD on hemodialysis , atrial fibrillation, not currently on Coumadin, due to multiple bleeding episodes during av fistula placement, presented with abdominal pain, generalized weakness, shortness of breath. Patient denies any chest pain, recent travel, sick contact. She complains of abdominal distention but denies any constipation or diarrhea. Her dyspnea on exertion is getting worse. There is no fever or chills. She lives in jail and was sent for generalized weakness HOSPITAL COURSE: Patient was admitted on 03/02/2017 complaining of abdominal pain, shortness of breath, pruritus, and palpitations. On hospital day 1 her chief complaint was generalized, intense pruritus that prevented her from sleeping. She was given Diphenhydramine 25mgx2, Prednisone 40mgx1, Famotidine 20mgx1, and a Eucerin cream. On discharge day she stated the pruritus was improving and she was able to sleep at night. She has a history of End stage renal disease stage 5. GFR 14.7, on hemodialysis every Monday/Monday/Monday. Dr. Begum is her mediation commissioner outpatient and was consulted to follow the patient during admission. CT of the abdomen reveals atrophic kidneys with BL cysts, a solid exophytic lesion on the left kidney, calculus in the mid-pole of the right kidney, and heather-hepatic ascites. Patient was continued on home calcium supplements and Cinacalcet 30mg and discharged on Monday to make her 11am dialysis appointment. She was instructed to follow up outpatient for further studies on the left kidney lesion, as per nephrology. A. fib with RVR. Patient did not convert to sinus rhythm during her admission. Currently rate controlled with Metoprolol tartrate (Lopressor) 50mg BID. Patient stopped taking warfarin per nephro request 2 weeks ago from excessive bleeding from her dialysis site. Confirmed with Dr. Begum it is ok to restart Coumadin on 03/02, patient received her normal 5mg yesterday at 5pm. INR today was 1.32, and 2.5mg Coumadin was added to her original 5mg. Her abdominal pain experienced on presentation resolved as of 03/02. She was placed on Senna/Ducosate 1 tab BID, Dulcolax 10mg PRN, Colace 100mg. Patient was able to pass a bowel movement last night. CT scan of the abdomen performed 03/01 revealed heather-hepatic ascites, and a calcified gallstone. Today patient has no pain on palpation of the abdomen. If pain returns, follow up with PCP for GI consult for stone removal. The pericardial effusion identified incidentally on imagine is a chronic problem that has been previously seen on imaging. Patient did not complain of any chest pain or shortness of breath after admission. Patient is in A. fib with controlled rate. Patient is medically optimized to be discharged. BL pleural effusion identified on imaging is likely due to ESRD. Bilateral crackles can be appreciated on exam. Continued with Furosemide 40mg IV Q12H to decrease preload. Patient denied any chest pain, shortness of breath, and lightheadedness during her admission. Patient is medically optimized to be discharged. Anemia. Macrocytic. Patient's hemoglobin on admission was 9.8. Hematocrit 32.4. Patient has been taking supplementation of b12/folate at home. Patient denies any lightheadedness and shortness of breath. Will continue to monitor with daily labs. Depression. Continued with Celexa DISCHARGE MEDICATIONS: Please see below. ALLERGIES: Please see below. PHYSICAL EXAMINATION ON DISCHARGE: VITAL SIGNS: Please see below. GENERAL: Patient was very pleasant, seen laying comfortably in bed, responsive , in no acute distress. Appears older than stated age. Appears well- nourished. HEENT: normocephalic, atraumatic, dry skin around right zygomatic arch, sclera were icteric, PERRLA NECK: supple, no JVD CARDIOVASCULAR EXAMINATION: Irregularly irregular rhythm, rate varied from 85- 114 during exam, no murmurs/rubs/gallops appreciated, left radial pulse was stronger than the right, equal pedal pulses. RESPIRATORY EXAMINATION: minimal crackles heard left lower bases (improvement) no wheezing appreciated. ABDOMINAL EXAMINATION: normal bowel sounds in all four quadrants, soft, no tenderness to palpation, no rigidity EXTREMITIES: excoriations observed on the upper arms BL, swelling and 1+ edema in BL lower extremities, no cyanosis. SKIN: normal turgor and temperature PSYCHIATRIC EXAMINATION: appropriate affect LABORATORY DATA: Please see below. IMAGING: CT of abdomen and pelvis 1. Overall no significant interval change. 2. Multiple calcified gallstones. 3. Both kidneys are severely atrophic with numerous bilateral renal cysts. Solid lesion at the mid pole of left kidney, mostly exophytic. 4. Non-obstructing calculus in the mid pole of the right kidney. 5. Heather-hepatic ascites is again seen. 6. The uterus and ovaries appear atrophic. 7. Severe cardiomegaly. 8. Pericardial effusion. 9. Trace bilateral pleural effusions. 10. Status post ORIF of the left proximal femur. 11. Old fracture involving the left inferior pubic ramus. ACTIVITY: [As tolerated]. DIET: No added salt, no bananas. DISCHARGE PLAN: 1. Generalized pruritus unknown source and unknown time. Patient had a Lopressor added to her medication list a couple weeks and is unknown if this is related. Discharged with Diphenhydramine 25mg qhs prn, and Eucerin lotion. Patient is to follow up with pcp within 3-7 days. 2. End stage renal disease stage 5. GFR 14.7. CT reveals atrophic kidneys with BL cysts, a solid exophytic lesion on the left kidney, calculus in the mid-pole of the right kidney, and heather-hepatic ascites. Per nephrology, patient should see PCP or nephro to get referral for Suspicious for a renal neoplasm. The patient will be referred to [facility] in [place] for likely nephrectomy. Patient receives hemodialysis three times a week (//). Patient is medically optimized and is being discharged today to make her Monday outpatient 11 am appoinment. Patient is on calcium supplements and Cinacalcet 30mg. 3. A. fib with RVR. Currently rate controlled with Metoprolol tartrate ( Lopressor) 50mg BID. Patient stopped taking warfarin per nephro request 2 weeks ago from excessive bleeding from her dialysis site. Confirmed with Dr. Begum it is ok to restart Coumadin. INR today was 1.32, she will continue to follow inpatient to reach therapeutic levels 2-3. Patient will take 7.5mg for the next 2 days then return to her normal 5mg dosage. . 4. Pericardial effusion. This a chronic problem that has been previously seen in imaging. Patient is not complaining of any chest pain or shortness of breath since admission. Patient is in A. fib with controlled rate. 5. BL pleural effusion. Likely due to ESRD. Lungs sound are improved, minimal basilar crackles appreciated on the left lower. Patient will continue with outpatient dialysis as scheduled. 6. Anemia (chronic). Macrocytic. Patient's hemoglobin on admission was 9.8. Hematocrit 32.4. Patient has been taking supplementation of b12/folate at home. Patient denies any lightheadedness and shortness of breath.. 7. Abdominal pain. Resolved. Patient states she had a bowel movement and her pain has improved since admission. She is currently on Senna/Ducosate 1 tab BID , Dulcolax 10mg PRN, Colace 100mg. CT scan of the abdomen performed yesterday revealed heather-hepatic ascites, and a calcified gallstone. Today patient has no pain on palpation of the abdomen. DISCHARGE INSTRUCTIONS: 1. Present to dialysis at 11am this morning, and continue regularly scheduled dialysis appointments. 2. Follow up with Primary Care Provider within 7 days 3. PCP or nephro will refer to [facility] in [place] for likely nephrectomy. 4. Take 7.5 mg of Warfarin for the next 2 days then return 5mg dosage. ITEMS TO FOLLOWUP ON OUTPATIENT: 1. Present to dialysis at 11am this morning, and continue regularly scheduled dialysis appointments. 2. Follow up with Primary Care Provider within 7 days 3. PCP or nephro will refer to [facility] in [place] for likely nephrectomy. 4. Take 7.5 mg of Warfarin for the next 2 days then return 5mg dosage. DISCHARGE CONDITION: Stable. TIME SPENT ON DISCHARGE: Greater than 35 minutes. Vital Signs/I&Os Vital Signs Date Time Temp Pulse Resp B/P (MAP) Pulse Ox O2 Delivery O2 Flow Rate FiO2 03/03/17 08:00 97.7 86 18 113/69 (84) 95 Room Air 03/02/17 08:00 1.0 I&O- Last 24 Hours up to 6 AM 03/04/17 06:00 Intake Total 120 ml Balance 120 ml Laboratory Data Labs 24H Laboratory Tests 2 03/02/17 09:57: Anion Gap 10, Glomerular Filtration Rate 10.8L, Blood Urea Nitrogen 23#H, Creatinine 4.37H, Sodium Level 137, Potassium Level 4.5#, Chloride Level 99, Carbon Dioxide Level 28, Calcium Level 8.5L, Aspartate Amino Transf (AST/SGOT) 24, Alanine Aminotransferase (ALT/SGPT) 15, Alkaline Phosphatase 147H, Total Bilirubin 1.1H, Direct Bilirubin 0.4H, Total Protein 6.9, Albumin 3.3, Albumin/ Globulin Ratio 0.92L 03/03/17 07:10: Anion Gap 9, Glomerular Filtration Rate 8.0L, Blood Urea Nitrogen 36#H, Creatinine 5.64H, Sodium Level 134L, Potassium Level 4.7, Chloride Level 98, Carbon Dioxide Level 27, Calcium Level 8.5L, Immature Granulocyte % (Auto) 0.5H , White Blood Count 6.4, Red Blood Count 3.19L, Hemoglobin 9.7L, Hematocrit 31.3L, Mean Corpuscular Volume 98.1H, Mean Corpuscular Hemoglobin 30.4, Mean Corpuscular Hemoglobin Concent 31.0L, Red Cell Distribution Width 17.0H, Platelet Count 276, Neutrophils (%) (Auto) 68.3H, Lymphocytes (%) (Auto) 13.9L, Monocytes (%) (Auto) 16.8H, Eosinophils (%) (Auto) 0.2, Basophils (%) (Auto) 0.3 , Neutrophils # (Auto) 4.4, Lymphocytes # (Auto) 0.9L, Monocytes # (Auto) 1.1H, Eosinophils # (Auto) 0.0, Basophils # (Auto) 0.0, Immature Granulocyte # (Auto) 0.0, Nucleated Red Blood Cells % (auto) 0.3H, Prothrombin Time 16.7H, Prothromb Time International Ratio 1.32 CBC/BMP Laboratory Tests 03/02/17 09:57 Calcium Level 8.5 L, Aspartate Amino Transf (AST/SGOT) 24, Alanine Aminotransferase (ALT/SGPT) 15, Alkaline Phosphatase 147 H, Total Bilirubin 1.1 H, Direct Bilirubin 0.4 H, Total Protein 6.9, Albumin 3.3 03/02/17 09:58 Red Blood Count 3.18 L, Mean Corpuscular Volume 101.9 H, Mean Corpuscular Hemoglobin 30.8, Mean Corpuscular Hemoglobin Concent 30.2 L, Red Cell Distribution Width 17.4 H 03/03/17 07:10 Calcium Level 8.5 L, Red Blood Count 3.19 L, Mean Corpuscular Volume 98.1 H, Mean Corpuscular Hemoglobin 30.4, Mean Corpuscular Hemoglobin Concent 31.0 L, Red Cell Distribution Width 17.0 H, Neutrophils (%) (Auto) 68.3 H, Lymphocytes ( %) (Auto) 13.9 L, Monocytes (%) (Auto) 16.8 H, Eosinophils (%) (Auto) 0.2, Basophils (%) (Auto) 0.3, Neutrophils # (Auto) 4.4, Lymphocytes # (Auto) 0.9 L, Monocytes # (Auto) 1.1 H, Eosinophils # (Auto) 0.0, Basophils # (Auto) 0.0 Discharge Medications Scheduled Aspirin (Aspirin EC) 81 Mg Tabec, 81 MG PO DAILY, (Reported) Calcium Acetate (Phoslo) 667 Mg Cap, 667 MG PO WM, (Reported) Cinacalcet Hydrochloride (Sensipar) 30 Mg Tab, 30 MG PO ASDIRECTED, (Reported) TAKES ON MONDAY AND MONDAY IN THE MORNING Docusate Sod/Senna (Senokot S 8.6-50 mg) 1 Tab Tab, 1 TAB PO BID, (Reported) Docusate Sodium (Colace) 100 Mg Cap, 100 MG PO QHS, (Reported) Ergocalciferol (Vitamin D) 50,000 Unit Cap, 50,000 UNIT PO ASDIRECTED, (Reported ) TAKES ON THE OF EACH MONTH Escitalopram Oxalate (Lexapro) 20 Mg Tab, 20 MG PO DAILY, (Reported) Metoprolol Tartrate (Metoprolol Tartrate) 50 Mg Tab, 50 MG PO ASDIRECTED, ( Reported) TAKES 50MG BID @ 1400, 2200 ON MONDAY, MONDAY AND MONDAY. TAKES 50MG Q8H @ 0600, 1400, 2200 ON MONDAY, MONDAY, MONDAY AND MONDAY. HOLD IF AP<60 OR SBP<100. Prochlorperazine (Prochlorperazine Maleate) 5 Mg Tab, 5 MG PO Q6H, (Reported) Vitamin B Cmplx/Vitc/Folic Ac (Nephro-Jake Rx 1 mg) 1 Tab Tab, 1 TAB PO DAILY, ( Reported) Warfarin Sod (Coumadin) 5 Mg Tab, 5 MG PO QPM, (Reported) Warfarin Sod (Coumadin) 0.5 Mg Halftab, 7.5 MG PO QPM Scheduled PRN Acetaminophen (Tylenol) 325 Mg Tab, 650 MG PO Q6H PRN for PAIN / FEVER, ( Reported) Bisacodyl (Bisacodyl) 10 Mg Sup, 10 MG ID DAILY PRN for CONSTIPATION, (Reported) Diphenhydramine HCl (Benadryl Allergy) 25 Mg Cap, 25 MG PO QHSP PRN for RASH/ ITCHING Eucerin (Eucerin) 1 Cre Cre, 0 DOSE TOP BIDP PRN for ITCHY DRY SKIN Menthol (Bengay Ultra Strength) 5 % Pad, 1 PATCH TOP Q8H PRN for PAIN, (Reported ) USES ON LOWER BACK Menthol (Bengay Ultra Strength) 5 % Pad, 1 PATCH EXT Q8H PRN for PAIN, (Reported ) USES ON LOWER BACK Oxycodone/Acetaminophen (Oxycodone/Acetaminophen 5-325 mg) 1 Tab Tab, 1 TAB PO Q6H PRN for PAIN SCALE 6-10, (Reported) Sodium Phosphate/Biphosphate (Enema 7-19 gm/118Ml) 1 Amina Amina, 1 AMINA ID DAILY PRN for CONSTIPATION, (Reported) Allergies Coded Allergies: Sukh (Verified Allergy, Severe, SUKH SKINS - RASH, THROAT SWELLING, DIFF BREATHING, 09/06/11) GME ATTESTATION GME ATTESTATION My preceptor for this patient encounter was physically present in the building during the encounter and was fully available. As needed, all aspects of the patient interview, examination, medical decision making process, and medical care plan development were reviewed and approved by the preceptor. Preceptor is aware and concurs with the plan as stated in the body of this note and will attest to such by his/her cosignature. GME ATTESTATION GME ATTESTATION My preceptor for this patient encounter was physically present in the building during the encounter and was fully available. As needed, all aspects of the patient interview, examination, medical decision making process, and medical care plan development were reviewed and approved by the preceptor. Preceptor is aware and concurs with the plan as stated in the body of this note and will attest to such by his/her cosignature. HIMANSHU SONG DO Mar 03, 2017 10:18
[2017-03-03] MEDS ORDERED: WARFARIN SOD 2.5 MG TAB PO ONE (17:00)
[2017-03-05] MEDS ORDERED: CINACALCET 30 MG TAB (SENSIPAR) PO SCH (09:00)
== END 2017-03-03 09:58 | DRG 606 ==
LOC: M ED 16:19 → M ED INP 03-02 00:31
PROVIDERS: ADMIT Internal Medicine; ATTEND Internal Medicine
PROC: 03JY3ZZ Inspection of Upper Artery, Percutaneous Approach (ICD-10-PCS; principal; 2017-02-28)
DX: L29.8 Other pruritus (principal); N18.6 End stage renal disease; I31.3 Pericardial effusion (noninflammatory); J90 Pleural effusion, not elsewhere classified; R18.8 Other ascites; I12.0 Hypertensive chronic kidney disease with stage 5 chronic kidney disease or end stage renal disease; N28.1 Cyst of kidney, acquired; R10.9 Unspecified abdominal pain; I48.2 Chronic atrial fibrillation; D50.9 Iron deficiency anemia, unspecified; K80.20 Calculus of gallbladder without cholecystitis without obstruction; F32.9 Major depressive disorder, single episode, unspecified; N20.0 Calculus of kidney; I51.7 Cardiomegaly; Z79.82 Long term (current) use of aspirin; Z79.899 Other long term (current) drug therapy; Z91.018 Allergy to other foods; M19.90 Unspecified osteoarthritis, unspecified site; E78.5 Hyperlipidemia, unspecified; K21.9 Gastro-esophageal reflux disease without esophagitis; G60.9 Hereditary and idiopathic neuropathy, unspecified

== ENCOUNTER → 2017-03-01 | Outpatient (REF) ==
[~2017-03-01] MED LIST changes: -HEPARIN 1,000 UNITS/ML 10ML VIAL (FOR RADIOLOGY& DIALYSIS ONLY) As Ordered ONE; -ISOVUE-300 61% 50ML VIAL (Q9967) As Ordered ONE; -MIDAZOLAM INJ 2 MG/2 ML VIAL (J2250) As Ordered ONE; -fentaNYL 100 MCG/2 ML INJECTION (J3010) As Ordered ONE
== END ==
PROVIDERS: ATTEND Internal Medicine
DX: Z00.00 Encounter for general adult medical examination without abnormal findings (principal)

== ENCOUNTER → 2017-03-13 | Outpatient (REF) | payer MEDICARE, MEDICAID ==
[~2017-03-13] MED LIST changes: +ASPI81TAEC PO; +BENA25CA4 PO; +BENPAD EXT; +ENEMENE16 PR; +EUCECRE3 TOP; +LEXA1TAB2 PO; +METO50TA7 PO; +OXYC1TAB23 PO; +PROC5TA PO
[2017-03-13 16:57] LABS: INR 6.28
== END ==
PROVIDERS: ATTEND Internal Medicine
DX: Z79.01 Long term (current) use of anticoagulants (principal)

== ENCOUNTER → 2017-03-14 | Outpatient (REF) ==
[2017-03-14 12:29] LABS: INR 4.39
== END ==
PROVIDERS: ATTEND Internal Medicine
DX: Z79.01 Long term (current) use of anticoagulants (principal)

== ENCOUNTER → 2017-03-15 | Outpatient (REF) ==
[2017-03-15 13:38] LABS: INR 3.19
== END ==
PROVIDERS: ATTEND Internal Medicine
DX: I48.91 Unspecified atrial fibrillation (principal)

== ENCOUNTER → 2017-04-05 | Outpatient (REF) | payer MEDICARE, MEDICAID ==
--- NOTE | 2017-04-09 08:38 | NOCOX ---
DATE OF PROCEDURE: __04/06/2017 INTERPRETATION: Nocturnal recording oximetry was performed on room air. The baseline saturation was 96%. Lowest oxygen saturation recorded 83%. There was a pattern of variable desaturation. IMPRESSION: Abnormal nocturnal recording oximetry with variable desaturations to 83%. Consider evaluation for obstructive sleep apnea syndrome. ANN
== END ==
PROVIDERS: ATTEND Internal Medicine
DX: R09.89 Other specified symptoms and signs involving the circulatory and respiratory systems (principal)

== ENCOUNTER → 2017-04-18 | Outpatient (REF) | payer MEDICARE, MEDICAID ==
--- NOTE | 2017-04-18 16:10 | REP ---
Clinical: Cough. Wheezing. Comparison: 03/23/2017. Findings: Examination is limited by portable technique, underpenetration, and poor inspiratory effort which accentuate the pulmonary vasculature and interstitium. Cardiomegaly is appreciated along with advanced chronic is interstitial changes. Superimposed pulmonary vascular congestion cannot be excluded. No focal consolidation, obvious effusion, or pneumothorax. Skeletal structures demonstrate age-related osteopenia and degenerative changes. Impression: Chronic cardiomegaly and interstitial changes. Cannot exclude mild pulmonary vascular congestion. No focal consolidation. Signed by Skip Preston MD 04/18/2017 04:02 P
[2017-04-18 18:11] LABS: CALCIUM LEVEL 8.2 MG/DL (8.8-10.2); CREATININE FOR GFR 2.17 MG/DL (0.55-1.02); GLOMERULAR FILTRATION RATE 24.2 (>45); POTASSIUM SERUM 3.6 MEQ/L (3.5-5.1)
[2017-04-18 19:41] LABS: MEAN CORPUSCULAR HEMOGLOBIN 29.7 pg (27.0-33.0); MEAN CORPUSCULAR HGB CONC 31.6 g/dl (32.0-36.5); PLATELET COUNT, AUTOMATED 207 10^3/uL (150-450); RED CELL DISTRIBUTION WIDTH 15.1 % (11.5-14.5); WHITE BLOOD COUNT 5.2 10^3/uL (4.0-10.0)
== END ==
PROVIDERS: ATTEND Internal Medicine
DX: J20.9 Acute bronchitis, unspecified (principal)

== ENCOUNTER → 2017-04-25 | Outpatient (REF) | payer MEDICARE, MEDICAID ==
[2017-04-25 12:27] LABS: MEAN CORPUSCULAR HEMOGLOBIN 30.3 pg (27.0-33.0); MEAN CORPUSCULAR HGB CONC 32.3 g/dl (32.0-36.5); MEAN CORPUSCULAR VOLUME 93.8 fl (80.0-96.0); PLATELET COUNT, AUTOMATED 200 10^3/uL (150-450); RED CELL DISTRIBUTION WIDTH 15.6 % (11.5-14.5); WHITE BLOOD COUNT 4.7 10^3/uL (4.0-10.0)
[2017-04-25 13:00] LABS: CALCIUM LEVEL 8.5 MG/DL (8.8-10.2); CREATININE FOR GFR 3.78 MG/DL (0.55-1.02); GLOMERULAR FILTRATION RATE 12.7 (>45); POTASSIUM SERUM 4.3 MEQ/L (3.5-5.1)
== END ==
PROVIDERS: ATTEND Internal Medicine
DX: J20.9 Acute bronchitis, unspecified (principal)

== ENCOUNTER → 2017-06-20 | Outpatient (CLI) | payer MEDICARE, MEDICAID ==
[~2017-06-20] MED LIST changes: -/ALEN70TA PO; -/DIALVITA PO; -/LOR25TA OR; -/NEPHROTA; -/ONDA4TA PO; -/RISE35TA; -/WARF25TA OR; -/WARF5TA; -/ZOLP6ER; -ACET65TA; -ACET65TA OR; -ADV250INH INH; -AMBI10TA; -AMBIENCR PO; -ASPE4PAD EX; -ASPI81TAEC PO; -AVEL1TAB3 PO; -BENA25CA4 PO; -BENPAD EXT; -BENPAD TOP; -BISA10SU4 PR; -CATAPRESS PO; -CEFD300CAP PO; -CELEBRE200 PO; -CINA30TA PO; -CLON0.2T; -COLA100C2 OR; -COLA100C5 PO; -COUM1TAB17 PO; -COUM2.5T17 PO; -DARV100T; -DIOV160T5 PO; -DIOV320T PO; -ECOT81TA5 PO; -ENEM1ENE4 PR; -ENEMENE16 PR; -EPOG3000 IVP; -ERYTHROPOIETIN; -EUCECRE3 TOP; -FLEEENE4 PR; -FLON0.05; -FLON0.054; -FLON1SPR; -HCTZ25 PO; -HEPA10004 SC; -HYDR-3716 PO; -HYDR-3910 PO; +ISOVUE-300 61% 50ML VIAL (Q9967) As Ordered; -LEXA1TAB2 PO; +LIDOCAINE 2% MDV 20 ML VIAL As Ordered; -LOPR1TAB6 PO; -LOPR50TA; -LOPR50TA PO; -LOPRESS50 PO; -LOSA100T36 PO; -LUNESTA2 PO; -LUNESTA3 PO; -MANNITOL; -METO1TAB7 PO; -METO50TA4; -METO50TA7 PO; +MIDAZOLAM INJ 2 MG/2 ML VIAL (J2250) As Ordered; -MIRA255PW PO; -MOBI4TAB PO; -MULT1TAB18 PO; -MULTIVIT OR; -NAPR250T; -NEPHTAB PO; -NEUR100C PO; -NORCOTAB PO; -OMEP20CA3 PO; -OMEP20TA7 PO; -OMEP40CA2 PO; -OXYC10TA97 OR; -OXYC1TAB23 PO; -PAXI10TA12 PO; -PAXI20TA; -PAXI20TA PO; -PAXI20TA29 PO; -PAXIL20 PO; -PERC5TAB8; -PERC5TAB8 OR; -PERC7.5T8 OR; -PERCOCET PO; -PHOS667C5 PO; -PHOSLO667 MG; -PHOSLO667 MG PO; -PREG50CA PO; -PRIL20CA; -PRIL40CA; -PROC5TA PO; -RENATAB5 PO; -RENV2TAB PO; -SENO8.6T10 PO; -SIMV20TA2; -SIMV20TA2 PO; -THERGRAN; -TYLE325T5 PO; -Tylenol PM PO; -VALS1TAB48 PO; -VICODIN PO; -VITA1CAP40 PO; -VITATAB PO; -Vitamin D2 PO; -WARF05TA PO; -ZEMPLAR; -ZOCOR20 PO; -[UNRECOGNIZED DRUG - CODE] INJ; -[UNRECOGNIZED DRUG - CODE] PO; -[UNRECOGNIZED DRUG - OTHER] IV; -[UNRECOGNIZED DRUG - OTHER] PO; -dialyvite PO; +fentaNYL 100 MCG/2 ML INJECTION (J3010) As Ordered; -venofer IV
== END | disposition home or self-care (01) ==
LOC: M IRPRO 10:19
DX: T82.838A Hemorrhage due to vascular prosthetic devices, implants and grafts, initial encounter (principal); T82.898A Other specified complication of vascular prosthetic devices, implants and grafts, initial encounter; L98.499 Non-pressure chronic ulcer of skin of other sites with unspecified severity; N18.6 End stage renal disease; N28.9 Disorder of kidney and ureter, unspecified; N13.30 Unspecified hydronephrosis
CPT/HCPCS: 36901

== ENCOUNTER 2017-07-12 21:29 | Emergency (ER) | payer MEDICARE, MEDICAID ==
[2017-07-12] MEDS ORDERED: SILVER NITRATE APPLICATOR As Ordered (22:09)
[2017-07-12] MEDS: PHYTONADIONE INJection 5 MG in NS 50 ML IV ×2 (22:30→23:30)
[2017-07-12] MEDS: DERMABOND TOPICAL SKIN ADHESIVE TOP (23:15)
== END 2017-07-13 02:25 | disposition home or self-care (01) ==
LOC: M ED 21:29
DX: T82.590A Other mechanical complication of surgically created arteriovenous fistula, initial encounter (principal); X58.XXXA Exposure to other specified factors, initial encounter; Y92.89 Other specified places as the place of occurrence of the external cause; I10 Essential (primary) hypertension; J44.9 Chronic obstructive pulmonary disease, unspecified; N19 Unspecified kidney failure; E78.5 Hyperlipidemia, unspecified; Z79.899 Other long term (current) drug therapy; Z79.82 Long term (current) use of aspirin; Z79.01 Long term (current) use of anticoagulants; Z91.018 Allergy to other foods
CPT/HCPCS: J3430

== ENCOUNTER → 2017-08-01 | Outpatient (REF) | payer MEDICARE, MEDICAID ==
[2017-08-01 13:02] LABS: APPEARANCE, URINE CLOUDY (CLEAR); BACTERIA, URINE AUTO NEGATIVE (NEGATIVE); BILIRUBIN, URINE AUTO NEGATIVE (NEGATIVE); BLOOD, URINE BLOOD 3+ (NEGATIVE); COLOR, URINE RED (YELLOW); GLUCOSE, URINE (UA) AUTO NEGATIVE (NEGATIVE); KETONE, URINE AUTO NEGATIVE (NEGATIVE); LEUKOCYTE ESTERASE, URINE AUTO 3+ (NEGATIVE); NITRITE, URINE AUTO NEGATIVE (NEGATIVE); PROTEIN, URINE AUTO 2+ mg/dL (NEGATIVE); RBC, URINE AUTO TNTC /HPF (0-3); SPECIFIC GRAVITY URINE AUTO 1.006 (1.002-1.035); SQUAMOUS EPITHELIAL CELL UR AU 4 /HPF (0-6); UROBILINOGEN, URINE AUTO 0.2 mg/dL (0.0-2.0); WBC, URINE AUTO TNTC /HPF (0-3)
== END ==
DX: R31.9 Hematuria, unspecified (principal)
CPT/HCPCS: 81001

== ENCOUNTER → 2017-11-07 | Outpatient (REF) ==
[2017-11-07 10:04] LABS: ANION GAP 9 MEQ/L (8-16); BLOOD UREA NITROGEN 29 MG/DL (7-18); CALCIUM LEVEL 8.4 MG/DL (8.8-10.2); CARBON DIOXIDE LEVEL 29 MEQ/L (21-32); CHLORIDE LEVEL 103 MEQ/L (98-107); CREATININE FOR GFR 4.12 MG/DL (0.55-1.30); GLOMERULAR FILTRATION RATE 11.5 (>45); GLUCOSE, FASTING 83 MG/DL (70-100); POTASSIUM SERUM 4.7 MEQ/L (3.5-5.1); SODIUM LEVEL 141 MEQ/L (136-145)
== END ==
DX: E87.5 Hyperkalemia (principal)

== ENCOUNTER → 2017-12-20 | Outpatient (REF) ==
[2017-12-20 10:58] LABS: INR 1.87; PROTHROMBIN TIME 21.9 SECONDS (12.1-14.4)
== END ==
DX: Z79.01 Long term (current) use of anticoagulants (principal); I48.91 Unspecified atrial fibrillation

== ENCOUNTER → 2017-12-27 | Outpatient (REF) ==
[2017-12-27 11:29] LABS: INR 2.03; PROTHROMBIN TIME 23.3 SECONDS (12.1-14.4)
== END ==
DX: I48.91 Unspecified atrial fibrillation (principal)

== ENCOUNTER → 2018-01-09 | Outpatient (REF) ==
[2018-01-09 12:31] LABS: HEMATOCRIT 34.5 % (36.0-47.0); HEMOGLOBIN 11.1 g/dl (12.0-15.5); MEAN CORPUSCULAR HEMOGLOBIN 30.5 pg (27.0-33.0); MEAN CORPUSCULAR HGB CONC 32.2 g/dl (32.0-36.5); MEAN CORPUSCULAR VOLUME 94.8 fl (80.0-96.0); PLATELET COUNT, AUTOMATED 158 10^3/uL (150-450); RED BLOOD COUNT 3.64 10^6/uL (4.00-5.40); RED CELL DISTRIBUTION WIDTH 14.9 % (11.5-14.5); WHITE BLOOD COUNT 3.6 10^3/uL (4.0-10.0)
[2018-01-09 14:55] LABS: AMORPHOUS SEDIMENT MODERATE (NEGATIVE); APPEARANCE, URINE HAZY (CLEAR); BACTERIA, URINE AUTO NEGATIVE (NEGATIVE); BILIRUBIN, URINE AUTO NEGATIVE (NEGATIVE); BLOOD, URINE BLOOD 2+ (NEGATIVE); COLOR, URINE YELLOW (YELLOW); GLUCOSE, URINE (UA) AUTO NEGATIVE (NEGATIVE); KETONE, URINE AUTO NEGATIVE (NEGATIVE); LEUKOCYTE ESTERASE, URINE AUTO NEGATIVE (NEGATIVE); MUCUS, URINE SMALL (NEGATIVE); NITRITE, URINE AUTO NEGATIVE (NEGATIVE); PROTEIN, URINE AUTO 2+ mg/dL (NEGATIVE); RBC, URINE AUTO 22 /HPF (0-3); RENAL EPITHELIAL CELLS 1 /HPF; SPECIFIC GRAVITY URINE AUTO 1.013 (1.002-1.035); SQUAMOUS EPITHELIAL CELL UR AU 5 /HPF (0-6); TRANSITIONAL EPITHELIAL AUTO 1 /HPF; UROBILINOGEN, URINE AUTO 0.2 mg/dL (0.0-2.0); WBC, URINE AUTO 11 /HPF (0-3)
== END ==
DX: N28.89 Other specified disorders of kidney and ureter (principal)

== ENCOUNTER → 2018-02-07 | Outpatient (REF) ==
[2018-02-07 10:28] LABS: INR 2.05; PROTHROMBIN TIME 23.5 SECONDS (12.1-14.4)
== END ==
DX: I48.91 Unspecified atrial fibrillation (principal)

== ENCOUNTER 2018-03-19 14:37 | Inpatient (IN) | payer MEDICARE, MEDICAID ==
[2018-03-19] MEDS: ACETAMINOPHEN TAB 650MG DOSE (2X325MG) PO ×2 (15:26→21:10)
[2018-03-19 16:01] LABS: ALBUMIN 3.7 GM/DL (3.2-5.2); ALBUMIN/GLOBULIN RATIO 0.97 (1.00-1.93); ALKALINE PHOSPHATASE 161 U/L (45-117); ALT/SGPT 27 U/L (12-78); ANION GAP 8 MEQ/L (8-16); AST/SGOT 18 U/L (7-37); BASO % 0.1 % (0.0-1.0); BILIRUBIN,DIRECT 0.4 MG/DL (0.0-0.2); BLOOD UREA NITROGEN 26 MG/DL (7-18); CALCIUM LEVEL 9.2 MG/DL (8.8-10.2); CARBON DIOXIDE LEVEL 29 MEQ/L (21-32); CHLORIDE LEVEL 97 MEQ/L (98-107); CREATININE FOR GFR 4.51 MG/DL (0.55-1.30); EOS % 0.2 % (0.0-3.0); GLOMERULAR FILTRATION RATE 10.4 (>45); GLUCOSE, FASTING 95 MG/DL (70-100); HEMATOCRIT 38.2 % (36.0-47.0); IMMATURE GRANULOCYTE % 0.6 % (0-3.0); LYMPH # 0.6 10^3/uL (1.5-4.5); LYMPH % 3.6 % (24.0-44.0); MEAN CORPUSCULAR HEMOGLOBIN 30.3 pg (27.0-33.0); MEAN CORPUSCULAR HGB CONC 31.4 g/dl (32.0-36.5); MEAN CORPUSCULAR VOLUME 96.5 fl (80.0-96.0); MONO # 1.4 10^3/uL (0.0-0.8); MONO % 8.9 % (0.0-5.0); NEUTROPHILS # 13.8 10^3/uL (1.8-7.7); NEUTROPHILS % 86.6 % (36.0-66.0); PLATELET COUNT, AUTOMATED 174 10^3/uL (150-450); POTASSIUM SERUM 3.9 MEQ/L (3.5-5.1); RED BLOOD COUNT 3.96 10^6/uL (4.00-5.40); RED CELL DISTRIBUTION WIDTH 15.4 % (11.5-14.5); SODIUM LEVEL 134 MEQ/L (136-145); TOTAL PROTEIN 7.5 GM/DL (6.4-8.2)
[2018-03-19 16:02] LABS: LACTIC ACID SEPSIS PROTOCOL 1.6 MMOL/L (0.4-2.0)
[2018-03-19] MEDS: PIPERACILLIN/TAZOBACTAM SOD 3.375 GM in D5W MINI-BAG PLUS 50 ML IV (17:06)
[2018-03-19] MEDS: NS 500 ML IV (18:12)
[2018-03-19] MEDS ORDERED: ONDANSETRON 4MG/2ML VIAL (J2405) IV (21:30)
[2018-03-19] MEDS: FEXOFENADINE 60 MG TAB PO (22:59)
[2018-03-19] MEDS: SENOKOT S TAB PO (22:59)
[2018-03-19] MEDS: METOPROLOL TART 50 MG TAB PO (23:00)
[2018-03-19] MEDS ORDERED: WARFARIN SOD 3 MG TAB PO (23:02)
[2018-03-19] MEDS: PERCOCET 5MG/325MG TAB PO (23:28)
[2018-03-20] MEDS: MIRTAZAPINE 7.5MG PER 1/2 TABLET PO ×2 (00:58→20:21)
[2018-03-20] MEDS: PIPERACILLIN/TAZOBACTAM SOD 2.25 GM in D5W MINI-BAG PLUS 50 ML IV ×3 (00:59→16:59)
[2018-03-20] MEDS: ACETAMINOPHEN TAB 650MG DOSE (2X325MG) PO ×2 (07:25→17:00)
[2018-03-20 07:26] LABS: BASO % 0.1 % (0.0-1.0); EOS % 0.1 % (0.0-3.0); HEMATOCRIT 32.7 % (36.0-47.0); HEMOGLOBIN 10.3 g/dl (12.0-15.5); IMMATURE GRANULOCYTE % 0.7 % (0-3.0); LYMPH # 0.9 10^3/uL (1.5-4.5); LYMPH % 6.8 % (24.0-44.0); MEAN CORPUSCULAR HEMOGLOBIN 30.5 pg (27.0-33.0); MEAN CORPUSCULAR HGB CONC 31.5 g/dl (32.0-36.5); MEAN CORPUSCULAR VOLUME 96.7 fl (80.0-96.0); MONO % 7.4 % (0.0-5.0); NEUTROPHILS # 11.5 10^3/uL (1.8-7.7); NEUTROPHILS % 84.9 % (36.0-66.0); PLATELET COUNT, AUTOMATED 138 10^3/uL (150-450); RED BLOOD COUNT 3.38 10^6/uL (4.00-5.40); RED CELL DISTRIBUTION WIDTH 15.7 % (11.5-14.5); WHITE BLOOD COUNT 13.5 10^3/uL (4.0-10.0)
[2018-03-20 07:39] LABS: INR 1.89
[2018-03-20 07:54] LABS: ANION GAP 9 MEQ/L (8-16); BLOOD UREA NITROGEN 39 MG/DL (7-18); CARBON DIOXIDE LEVEL 27 MEQ/L (21-32); CHLORIDE LEVEL 99 MEQ/L (98-107); GLOMERULAR FILTRATION RATE 7.9 (>45); GLUCOSE, FASTING 95 MG/DL (70-100); POTASSIUM SERUM 4.1 MEQ/L (3.5-5.1); SODIUM LEVEL 135 MEQ/L (136-145)
[2018-03-20] MEDS: SENOKOT S TAB PO ×2 (08:32→20:21)
[2018-03-20] MEDS: PANTOPRAZOLE 40MG TAB (PROTONIX) PO (08:32)
[2018-03-20] MEDS: ASPIRIN 81 MG ENTERIC TAB PO (08:32)
[2018-03-20] MEDS: PARoxetine 20 MG TAB PO (08:32)
[2018-03-20] MEDS: PERCOCET 5MG/325MG TAB PO ×2 (08:32→20:23)
[2018-03-20] MEDS: METOPROLOL TART 50 MG TAB PO ×2 (08:33→20:22)
[2018-03-20] MEDS: EUCERIN 120GM CREAM TOP (08:33)
[2018-03-20] MEDS: CALCIUM ACETATE 667 MG GELCAP PO ×3 (08:50→18:52)
[2018-03-20] MEDS: WARFARIN SOD 3 MG TAB PO (16:59)
[2018-03-20] MEDS: FEXOFENADINE 60 MG TAB PO (18:26)
[2018-03-21] MEDS: ACETAMINOPHEN TAB 650MG DOSE (2X325MG) PO ×2 (00:01→21:28)
[2018-03-21] MEDS: PIPERACILLIN/TAZOBACTAM SOD 2.25 GM in D5W MINI-BAG PLUS 50 ML IV ×3 (00:01→18:07)
[2018-03-21 07:25] LABS: HEMATOCRIT 32.7 % (36.0-47.0); HEMOGLOBIN 10.3 g/dl (12.0-15.5); MEAN CORPUSCULAR HEMOGLOBIN 30.6 pg (27.0-33.0); MEAN CORPUSCULAR HGB CONC 31.5 g/dl (32.0-36.5); PLATELET COUNT, AUTOMATED 127 10^3/uL (150-450); RED BLOOD COUNT 3.37 10^6/uL (4.00-5.40); RED CELL DISTRIBUTION WIDTH 15.8 % (11.5-14.5); WHITE BLOOD COUNT 5.4 10^3/uL (4.0-10.0)
[2018-03-21 07:37] LABS: INR 1.65; PROTHROMBIN TIME 19.8 SECONDS (12.1-14.4)
[2018-03-21 07:42] LABS: ALBUMIN 2.8 GM/DL (3.2-5.2); ANION GAP 7 MEQ/L (8-16); BLOOD UREA NITROGEN 28 MG/DL (7-18); CALCIUM LEVEL 8.4 MG/DL (8.8-10.2); CARBON DIOXIDE LEVEL 29 MEQ/L (21-32); CHLORIDE LEVEL 101 MEQ/L (98-107); CREATININE FOR GFR 3.94 MG/DL (0.55-1.30); GLOMERULAR FILTRATION RATE 12.1 (>45); GLUCOSE, FASTING 82 MG/DL (70-100); PHOSPHORUS LEVEL 2.6 MG/DL (2.5-4.9); POTASSIUM SERUM 4.2 MEQ/L (3.5-5.1); SODIUM LEVEL 137 MEQ/L (136-145)
[2018-03-21] MEDS: ASPIRIN 81 MG ENTERIC TAB PO (08:22)
[2018-03-21] MEDS: CALCIUM ACETATE 667 MG GELCAP PO ×3 (08:22→18:07)
[2018-03-21] MEDS: PARoxetine 20 MG TAB PO (08:22)
[2018-03-21] MEDS: PANTOPRAZOLE 40MG TAB (PROTONIX) PO (08:22)
[2018-03-21] MEDS: SENOKOT S TAB PO ×2 (08:22→21:27)
[2018-03-21] MEDS: METOPROLOL TART 50 MG TAB PO ×2 (08:22→21:28)
[2018-03-21] MEDS: EUCERIN 120GM CREAM TOP (08:23)
[2018-03-21] MEDS: PERCOCET 5MG/325MG TAB PO ×2 (08:23→21:29)
[2018-03-21] MEDS: FLUBLOK(EGG FREE)(QUAD)INFLUENZA VACC 0.5ML SYRINGE (90682)18YRS&OLDER IM (09:00)
[2018-03-21] MEDS: WARFARIN SOD 3 MG TAB PO (18:07)
[2018-03-21] MEDS: WARFARIN SOD 2 MG TAB PO (18:08)
[2018-03-21] MEDS: FEXOFENADINE 60 MG TAB PO (21:27)
[2018-03-21] MEDS: MIRTAZAPINE 7.5MG PER 1/2 TABLET PO (21:57)
[2018-03-22] MEDS: PIPERACILLIN/TAZOBACTAM SOD 2.25 GM in D5W MINI-BAG PLUS 50 ML IV ×2 (00:12→10:57)
[2018-03-22 07:09] LABS: HEMATOCRIT 32.6 % (36.0-47.0); HEMOGLOBIN 10.2 g/dl (12.0-15.5); MEAN CORPUSCULAR HEMOGLOBIN 30.4 pg (27.0-33.0); MEAN CORPUSCULAR HGB CONC 31.3 g/dl (32.0-36.5); PLATELET COUNT, AUTOMATED 137 10^3/uL (150-450); RED BLOOD COUNT 3.36 10^6/uL (4.00-5.40); RED CELL DISTRIBUTION WIDTH 15.8 % (11.5-14.5); WHITE BLOOD COUNT 4.1 10^3/uL (4.0-10.0)
[2018-03-22 07:24] LABS: INR 1.93; PROTHROMBIN TIME 22.4 SECONDS (12.1-14.4)
[2018-03-22 08:02] LABS: ALBUMIN 2.7 GM/DL (3.2-5.2); ANION GAP 8 MEQ/L (8-16); BLOOD UREA NITROGEN 40 MG/DL (7-18); CALCIUM LEVEL 7.9 MG/DL (8.8-10.2); CARBON DIOXIDE LEVEL 28 MEQ/L (21-32); CHLORIDE LEVEL 100 MEQ/L (98-107); CREATININE FOR GFR 6.02 MG/DL (0.55-1.30); GLOMERULAR FILTRATION RATE 7.4 (>45); GLUCOSE, FASTING 82 MG/DL (70-100); PHOSPHORUS LEVEL 3.2 MG/DL (2.5-4.9); POTASSIUM SERUM 4.3 MEQ/L (3.5-5.1); SODIUM LEVEL 136 MEQ/L (136-145)
[2018-03-22] MEDS: PANTOPRAZOLE 40MG TAB (PROTONIX) PO (10:55)
[2018-03-22] MEDS: ASPIRIN 81 MG ENTERIC TAB PO (10:56)
[2018-03-22] MEDS: PARoxetine 20 MG TAB PO (10:56)
[2018-03-22] MEDS: PERCOCET 5MG/325MG TAB PO (10:56)
[2018-03-22] MEDS: CALCIUM ACETATE 667 MG GELCAP PO (10:56)
[2018-03-22] MEDS: METOPROLOL TART 50 MG TAB PO (10:57)
[2018-03-22] MEDS: SENOKOT S TAB PO (10:57)
[2018-03-22] MEDS: EUCERIN 120GM CREAM TOP (10:57)
== END 2018-03-22 12:42 | DRG 314 ==
LOC: M ED 14:37 → M MSPAV 03-21 13:07 → M ED INP 21:27
PROC: 5A1D70Z Performance of Urinary Filtration, Intermittent, Less than 6 Hours Per Day (ICD-10-PCS; principal; 2018-03-20)
DX: I95.9 Hypotension, unspecified (principal); N18.6 End stage renal disease; N25.81 Secondary hyperparathyroidism of renal origin; I12.0 Hypertensive chronic kidney disease with stage 5 chronic kidney disease or end stage renal disease; I48.91 Unspecified atrial fibrillation; M19.90 Unspecified osteoarthritis, unspecified site; D63.1 Anemia in chronic kidney disease; R60.0 Localized edema; R50.9 Fever, unspecified; G47.00 Insomnia, unspecified; J30.2 Other seasonal allergic rhinitis; Z99.2 Dependence on renal dialysis; Z79.82 Long term (current) use of aspirin; Z79.891 Long term (current) use of opiate analgesic; Z79.01 Long term (current) use of anticoagulants; Z79.899 Other long term (current) drug therapy; Z91.018 Allergy to other foods

== ENCOUNTER → 2018-04-04 | Outpatient (REF) | payer MEDICARE, MEDICAID ==
[2018-04-04 18:00] LABS: HEMATOCRIT 32.8 % (36.0-47.0); HEMOGLOBIN 10.3 g/dl (12.0-15.5); MEAN CORPUSCULAR HEMOGLOBIN 30.7 pg (27.0-33.0); MEAN CORPUSCULAR HGB CONC 31.4 g/dl (32.0-36.5); MEAN CORPUSCULAR VOLUME 97.6 fl (80.0-96.0); PLATELET COUNT, AUTOMATED 181 10^3/uL (150-450); RED BLOOD COUNT 3.36 10^6/uL (4.00-5.40)
[2018-04-04 18:28] LABS: ANION GAP 11 MEQ/L (8-16); BLOOD UREA NITROGEN 49 MG/DL (7-18); CALCIUM LEVEL 8.5 MG/DL (8.8-10.2); CARBON DIOXIDE LEVEL 26 MEQ/L (21-32); CHLORIDE LEVEL 96 MEQ/L (98-107); CREATININE FOR GFR 6.26 MG/DL (0.55-1.30); GLOMERULAR FILTRATION RATE 7.1 (>45); GLUCOSE, FASTING 81 MG/DL (70-100); POTASSIUM SERUM 5.2 MEQ/L (3.5-5.1); SODIUM LEVEL 133 MEQ/L (136-145)
== END ==
DX: R53.83 Other fatigue (principal)
CPT/HCPCS: 80048

== ENCOUNTER → 2018-06-20 | Outpatient (REF) | payer MEDICARE, MEDICAID ==
[~2018-06-20] MED LIST changes: +/ALEN70TA PO; +/DIALVITA PO; +/LOR25TA OR; +/NEPHROTA; +/ONDA4TA PO; +/RISE35TA; +/WARF25TA OR; +/WARF5TA; +/ZOLP6ER; +ACET-683 PO; +ACET65TA; +ACET65TA OR; +ADV250INH INH; +AMBI10TA; +AMBIENCR PO; +ASPE4PAD EX; +ASPI81TAEC PO; +AVEL1TAB3 PO; +BENA25CA4 PO; +BENA2CRE3 EXT; +BENPAD EXT; +BENPAD TOP; +BISA10SU4 PR; +CATAPRESS PO; +CEFD300CAP PO; +CELEBRE200 PO; +CINA30TA PO; +CLON0.2T; +COLA100C2 OR; +COLA100C5 PO; +COUM1TAB17 PO; +COUM2.5T17 PO; +DARV100T; +DIOV160T5 PO; +DIOV320T PO; +ECOT81TA5 PO; +ENEM1ENE4 PR; +ENEMENE4 PR; +ENEMENE6 PR; +EPOG3000 IVP; +ERYTHROPOIETIN; +EUCECRE3 TOP; +FEXO180T58 PO; +FLEEENE4 PR; +FLON0.05; +FLON0.054; +FLON1SPR; +HCTZ25 PO; +HEPA10004 SC; +HYDR-3716 PO; +HYDR-3910 PO; -ISOVUE-300 61% 50ML VIAL (Q9967) As Ordered; +LEVA250T13 PO; +LEXA1TAB2 PO; -LIDOCAINE 2% MDV 20 ML VIAL As Ordered; +LOPR1TAB6 PO; +LOPR50TA; +LOPR50TA PO; +LOPRESS50 PO; +LOSA100T50 PO; +LUNESTA2 PO; +LUNESTA3 PO; +MANNITOL; +METO1TAB7 PO; +METO50TA4; +METO50TA7 PO; -MIDAZOLAM INJ 2 MG/2 ML VIAL (J2250) As Ordered; +MIRA255PW PO; +MIRT1TAB PO; +MOBI4TAB PO; +MULT1TAB18 PO; +MULTIVIT OR; +NAPR250T; +NEPHTAB PO; +NEUR100C PO; +NORCOTAB PO; +OMEP20CA3 PO; +OMEP20TA7 PO; +OMEP40CA2 PO; +OXYC10TA97 OR; +OXYC1TAB23 PO; +PARO20TA3 PO; +PAXI10TA12 PO; +PAXI20TA; +PAXI20TA PO; +PAXI20TA29 PO; +PAXIL20 PO; +PERC5TAB12 PO; +PERC5TAB8; +PERC5TAB8 OR; +PERC7.5T8 OR; +PERCOCET PO; +PHOS667C5 PO; +PHOSLO667 MG; +PHOSLO667 MG PO; +PREG50CA PO; +PRIL20CA; +PRIL40CA; +PROC5TA PO; +RENATAB5 PO; +RENV2TAB PO; +SENO8.6T10 PO; +SIMV20TA2; +SIMV20TA2 PO; +SODI0.65; +THERGRAN; +TYLE325T5 PO; +Tylenol PM PO; +VALS1TAB48 PO; +VICODIN PO; +VITA50005 PO; +VITATAB PO; +Vitamin D2 PO; +WARF-60 PO; +WARF05TA PO; +ZEMPLAR; +ZOCOR20 PO; +[UNRECOGNIZED DRUG - CODE] INJ; +[UNRECOGNIZED DRUG - CODE] PO; +[UNRECOGNIZED DRUG - OTHER] IV; +[UNRECOGNIZED DRUG - OTHER] PO; +dialyvite PO; -fentaNYL 100 MCG/2 ML INJECTION (J3010) As Ordered; +venofer IV
[2018-06-20 10:04] LABS: HEMATOCRIT 37.7 % (36.0-47.0); HEMOGLOBIN 11.6 g/dl (12.0-15.5); MEAN CORPUSCULAR HEMOGLOBIN 31.2 pg (27.0-33.0); MEAN CORPUSCULAR HGB CONC 30.8 g/dl (32.0-36.5); MEAN CORPUSCULAR VOLUME 101.3 fl (80.0-96.0); PLATELET COUNT, AUTOMATED 171 10^3/uL (150-450); RED BLOOD COUNT 3.72 10^6/uL (4.00-5.40); WHITE BLOOD COUNT 5.5 10^3/uL (4.0-10.0)
[2018-06-20 10:24] LABS: CALCIUM LEVEL 8.5 MG/DL (8.8-10.2); CREATININE FOR GFR 5.61 MG/DL (0.55-1.30)
== END ==
PROVIDERS: ATTEND Internal Medicine
DX: N18.6 End stage renal disease (principal)

== ENCOUNTER → 2018-07-04 | Outpatient (REF) | payer MEDICARE, MEDICAID ==
[2018-07-04 13:21] LABS: INR 1.75; PROTHROMBIN TIME 20.7 SECONDS (12.1-14.4)
== END ==
PROVIDERS: ATTEND Internal Medicine
DX: I48.91 Unspecified atrial fibrillation (principal)

== ENCOUNTER → 2018-07-06 | Outpatient (REF) | payer MEDICARE, MEDICAID ==
[2018-07-06 08:07] LABS: INR 1.62; PROTHROMBIN TIME 19.5 SECONDS (12.1-14.4)
== END ==
PROVIDERS: ATTEND Internal Medicine
DX: I48.91 Unspecified atrial fibrillation (principal)

== ENCOUNTER → 2018-07-11 | Outpatient (REF) | payer MEDICARE, MEDICAID ==
[2018-07-11 09:34] LABS: PROTHROMBIN TIME 23.1 SECONDS (12.1-14.4)
== END ==
PROVIDERS: ATTEND Internal Medicine
DX: I48.91 Unspecified atrial fibrillation (principal)

== ENCOUNTER → 2018-07-18 | Outpatient (REF) | payer MEDICARE, MEDICAID ==
[2018-07-18 09:34] LABS: INR 1.92; PROTHROMBIN TIME 22.3 SECONDS (12.1-14.4)
== END ==
PROVIDERS: ATTEND Physician Assistant
DX: I48.91 Unspecified atrial fibrillation (principal)

== ENCOUNTER → 2018-07-25 | Outpatient (REF) | payer MEDICARE, MEDICAID ==
[2018-07-25 08:37] LABS: INR 2.09; PROTHROMBIN TIME 23.9 SECONDS (12.1-14.4)
== END ==
PROVIDERS: ATTEND Internal Medicine
DX: N18.6 End stage renal disease (principal)

== ENCOUNTER → 2018-08-01 | Outpatient (REF) | payer MEDICARE, MEDICAID ==
[2018-08-01 10:40] LABS: INR 2.25; PROTHROMBIN TIME 25.3 SECONDS (12.1-14.4)
== END ==
PROVIDERS: ATTEND Internal Medicine
DX: I48.91 Unspecified atrial fibrillation (principal)

== ENCOUNTER → 2018-08-07 | Outpatient (REF) | payer MEDICARE, MEDICAID ==
[2018-08-07 14:09] LABS: HEMATOCRIT 36.9 % (36.0-47.0); HEMOGLOBIN 11.5 g/dl (12.0-15.5); MEAN CORPUSCULAR HEMOGLOBIN 30.1 pg (27.0-33.0); MEAN CORPUSCULAR HGB CONC 31.2 g/dl (32.0-36.5); MEAN CORPUSCULAR VOLUME 96.6 fl (80.0-96.0); PLATELET COUNT, AUTOMATED 181 10^3/uL (150-450); RED BLOOD COUNT 3.82 10^6/uL (4.00-5.40); WHITE BLOOD COUNT 4.8 10^3/uL (4.0-10.0)
[2018-08-07 14:37] LABS: ALBUMIN 3.2 GM/DL (3.2-5.2); BILIRUBIN,TOTAL 0.5 MG/DL (0.2-1.0); CALCIUM LEVEL 8.1 MG/DL (8.8-10.2); CREATININE FOR GFR 4.79 MG/DL (0.55-1.30); GLOMERULAR FILTRATION RATE 9.7 (>45); POTASSIUM SERUM 4.8 MEQ/L (3.5-5.1); TOTAL PROTEIN 6.1 GM/DL (6.4-8.2)
== END ==
PROVIDERS: ATTEND Internal Medicine
DX: I95.9 Hypotension, unspecified (principal)

== ENCOUNTER → 2018-08-08 | Outpatient (REF) | payer MEDICARE, MEDICAID ==
[2018-08-08 10:07] LABS: INR 1.89; PROTHROMBIN TIME 22.1 SECONDS (12.1-14.4)
== END ==
PROVIDERS: ATTEND Internal Medicine
DX: N18.6 End stage renal disease (principal)

== ENCOUNTER → 2018-08-13 | Outpatient (REF) | payer MEDICARE, MEDICAID ==
[2018-08-13 12:06] LABS: INR 2.18; PROTHROMBIN TIME 24.7 SECONDS (12.1-14.4)
== END ==
PROVIDERS: ATTEND Internal Medicine
DX: I48.91 Unspecified atrial fibrillation (principal)

== ENCOUNTER → 2018-08-15 | Outpatient (REF) | payer MEDICARE, MEDICAID ==
[2018-08-15 09:19] LABS: INR 1.76; PROTHROMBIN TIME 20.8 SECONDS (12.1-14.4)
== END ==
PROVIDERS: ATTEND Internal Medicine
DX: I48.91 Unspecified atrial fibrillation (principal)

== ENCOUNTER → 2018-08-22 | Outpatient (REF) | payer MEDICARE, MEDICAID ==
[2018-08-22 10:10] LABS: INR 1.9; PROTHROMBIN TIME 22.2 SECONDS (12.1-14.4)
== END ==
PROVIDERS: ATTEND Internal Medicine
DX: Z79.01 Long term (current) use of anticoagulants (principal); I48.91 Unspecified atrial fibrillation

== ENCOUNTER → 2018-08-29 | Outpatient (REF) | payer MEDICARE, MEDICAID ==
[2018-08-29 09:37] LABS: INR 1.91; PROTHROMBIN TIME 22.2 SECONDS (12.1-14.4)
== END ==
PROVIDERS: ATTEND Internal Medicine
DX: N18.6 End stage renal disease (principal)

== ENCOUNTER → 2018-09-05 | Outpatient (REF) | payer MEDICARE, MEDICAID ==
[~2018-09-05] MED LIST changes: -/DIALVITA PO; -/NEPHROTA; -/ONDA4TA PO; -/WARF25TA OR; -/WARF5TA; +COUM1TAB17; +COUM1TAB18 OR; +DIAL1TAB2 PO; +HYDR-3715 PO; -MIRA255PW PO; +NEPH1TAB11 PO; +NEPH1TAB8; -NEPHTAB PO; -NORCOTAB PO; +ONDA-1 PO; -PERCOCET PO; +POLY1POW4 PO; -VALS1TAB48 PO; +VALS1TAB68 PO
[2018-09-05 09:27] LABS: INR 1.8; PROTHROMBIN TIME 21.2 SECONDS (12.1-14.4)
[2018-09-05 10:49] LABS: HEMATOCRIT 32.7 % (36.0-47.0); HEMOGLOBIN 10.5 g/dl (12.0-15.5); MEAN CORPUSCULAR HEMOGLOBIN 30.7 pg (27.0-33.0); MEAN CORPUSCULAR HGB CONC 32.1 g/dl (32.0-36.5); MEAN CORPUSCULAR VOLUME 95.6 fl (80.0-96.0); PLATELET COUNT, AUTOMATED 175 10^3/uL (150-450); RED BLOOD COUNT 3.42 10^6/uL (4.00-5.40); WHITE BLOOD COUNT 12.3 10^3/uL (4.0-10.0)
[2018-09-05 11:15] LABS: CALCIUM LEVEL 8.7 MG/DL (8.8-10.2); CREATININE FOR GFR 5.92 MG/DL (0.55-1.30); GLOMERULAR FILTRATION RATE 7.6 (>45)
[2018-09-05 11:29] LABS: INFLUENZA A AMPLIFICATION NEGATIVE (NEGATIVE); INFLUENZA B AMPLIFICATION NEGATIVE (NEGATIVE)
--- NOTE | 2018-09-05 12:26 | REP ---
Portable chest, 12:29 p.m., single AP upright view: Comparison is 03/19/2018. There is chronic cardiomegaly, unchanged. The lung ruggiero are clear. The lynda, mediastinum, skeletal structures are unchanged unremarkable. Impression: No acute cardiopulmonary findings. Chronic cardiomegaly. Electronically Signed by Supa Metz MD 09/05/2018 12:18 P
== END ==
PROVIDERS: ATTEND Internal Medicine
DX: I51.7 Cardiomegaly (principal); I48.91 Unspecified atrial fibrillation

== ENCOUNTER → 2018-09-06 | Outpatient (REF) | payer MEDICARE, MEDICAID ==
[2018-09-06 12:50] LABS: HEMATOCRIT 30.8 % (36.0-47.0); HEMOGLOBIN 9.7 g/dl (12.0-15.5); MEAN CORPUSCULAR HEMOGLOBIN 29.9 pg (27.0-33.0); MEAN CORPUSCULAR HGB CONC 31.5 g/dl (32.0-36.5); MEAN CORPUSCULAR VOLUME 95.1 fl (80.0-96.0); PLATELET COUNT, AUTOMATED 169 10^3/uL (150-450); RED BLOOD COUNT 3.24 10^6/uL (4.00-5.40); WHITE BLOOD COUNT 5.6 10^3/uL (4.0-10.0)
== END ==
PROVIDERS: ATTEND Internal Medicine
DX: R50.9 Fever, unspecified (principal)

== ENCOUNTER → 2018-09-08 | Outpatient (REF) | payer MEDICARE, MEDICAID | PROVIDERS: ATTEND Internal Medicine | DX: R50.9 Fever, unspecified (principal) ==

== ENCOUNTER → 2018-09-12 | Outpatient (REF) | payer MEDICARE, MEDICAID ==
[~2018-09-12] MED LIST changes: -CINA30TA PO; +CINA30TA4 PO
[2018-09-12 09:49] LABS: INR 2.31; PROTHROMBIN TIME 25.9 SECONDS (12.1-14.4)
--- NOTE | 2018-09-13 16:18 | ECGEPIP ---
Stationary ECG Study [facility] Test Date: 2018-09-13 Pat Name: MAICOL OCASIO Department: Room: - Gender: F Director Power: FLORES : 1950 Requested By: WESTON Solano Order Number: [id number] Reading MD: Chava Baugh Measurements Intervals [place] Rate: 136 P: [place]: 0 QRS: 79 QRSD: 86 T: 30 QT: 291 QTc: 439 Interpretive Statements ATRIAL FIBRILLATION WITH RAPID VENTRICULAR RESPONSE NONSPECIFIC T-WAVE ABNORMALITY ABNORMAL RHYTHM ECG Increased heart rate compared with 03/01/2017 at 1739 hrs. Electronically Signed On 09-13-2018 16:18:42 EDT by Chava Baugh
== END ==
PROVIDERS: ATTEND Internal Medicine
DX: I48.91 Unspecified atrial fibrillation (principal)

== ENCOUNTER → 2018-09-19 | Outpatient (REF) | payer MEDICARE, MEDICAID ==
[2018-09-19 11:14] LABS: INR 2.01; PROTHROMBIN TIME 23.2 SECONDS (12.1-14.4)
== END ==
PROVIDERS: ATTEND Internal Medicine
DX: I48.91 Unspecified atrial fibrillation (principal)

== ENCOUNTER → 2018-09-26 | Outpatient (REF) | payer MEDICARE, MEDICAID ==
[2018-09-26 09:20] LABS: INR 2.08; PROTHROMBIN TIME 23.8 SECONDS (12.1-14.4)
== END ==
PROVIDERS: ATTEND Internal Medicine
DX: I48.91 Unspecified atrial fibrillation (principal)

== ENCOUNTER → 2018-10-03 | Outpatient (REF) | payer MEDICARE, MEDICAID ==
[2018-10-03 09:21] LABS: INR 2.2; PROTHROMBIN TIME 24.8 SECONDS (12.1-14.4)
== END ==
PROVIDERS: ATTEND Internal Medicine
DX: I48.91 Unspecified atrial fibrillation (principal)

== ENCOUNTER → 2018-10-10 | Outpatient (REF) | payer MEDICARE, MEDICAID ==
[2018-10-10 10:52] LABS: INR 1.98; PROTHROMBIN TIME 22.9 SECONDS (12.1-14.4)
== END ==
PROVIDERS: ATTEND Internal Medicine
DX: I48.91 Unspecified atrial fibrillation (principal)

== ENCOUNTER → 2018-10-17 | Outpatient (REF) | payer MEDICARE, MEDICAID ==
[2018-10-17 08:30] LABS: INR 2.13; PROTHROMBIN TIME 24.3 SECONDS (12.1-14.4)
== END ==
PROVIDERS: ATTEND Internal Medicine
DX: I48.91 Unspecified atrial fibrillation (principal)

== ENCOUNTER → 2018-10-22 | Outpatient (REF) | payer MEDICARE, MEDICAID ==
[2018-10-22 07:12] LABS: INR 2.32; PROTHROMBIN TIME 25.9 SECONDS (12.1-14.4)
== END ==
PROVIDERS: ATTEND Internal Medicine
DX: I48.91 Unspecified atrial fibrillation (principal)

== ENCOUNTER → 2018-10-24 | Outpatient (REF) | payer MEDICARE, MEDICAID ==
[2018-10-24 09:04] LABS: INR 2.09; PROTHROMBIN TIME 23.9 SECONDS (12.1-14.4)
== END ==
PROVIDERS: ATTEND Internal Medicine
DX: I48.91 Unspecified atrial fibrillation (principal)

== ENCOUNTER → 2018-10-31 | Outpatient (REF) | payer MEDICARE, MEDICAID ==
[2018-10-31 10:28] LABS: INR 2.45; PROTHROMBIN TIME 27.1 SECONDS (12.1-14.4)
== END ==
PROVIDERS: ATTEND Internal Medicine
DX: I48.91 Unspecified atrial fibrillation (principal)

== ENCOUNTER → 2018-11-07 | Outpatient (REF) | payer MEDICARE, MEDICAID ==
[2018-11-07 08:59] LABS: INR 2.49; PROTHROMBIN TIME 27.5 SECONDS (12.1-14.4)
== END ==
PROVIDERS: ATTEND Internal Medicine
DX: I48.91 Unspecified atrial fibrillation (principal)

== ENCOUNTER → 2018-11-14 | Outpatient (REF) | payer MEDICARE, MEDICAID ==
[2018-11-14 10:36] LABS: INR 2.96; PROTHROMBIN TIME 30.7 SECONDS (11.8-14.0)
== END ==
PROVIDERS: ATTEND Internal Medicine
DX: I48.91 Unspecified atrial fibrillation (principal)

== ENCOUNTER 2018-11-15 01:05 | Emergency (ER) | payer MEDICARE, MEDICAID ==
[~2018-11-15] VITALS: Ht 157.5 cm; Wt 75.0 kg
[2018-11-15] MEDS ORDERED: METOPROLOL 5 MG/5 ML VIAL IV STA (01:36)
[2018-11-15] MEDS ORDERED: METOPROLOL SUCC *XL* 25MG TAB (TopROL *XL*) PO ONE (01:45)
[2018-11-15] MEDS ORDERED: MORPHINE 2 MG/ML 1ML SYRINGE (J2270) IV ONE (01:45)
[2018-11-15 02:10] VITALS: BP 152/75
[2018-11-15 02:36] LABS: BASO % 0.5 % (0.0-1.0); EOS # 0.1 10^3/uL (0.0-0.50); HEMATOCRIT 34.1 % (36.0-47.0); HEMOGLOBIN 10.7 g/dl (12.0-15.5); LYMPH # 1.3 10^3/uL (1.5-4.5); LYMPH % 22.5 % (24.0-44.0); MEAN CORPUSCULAR HEMOGLOBIN 31.5 pg (27.0-33.0); MEAN CORPUSCULAR HGB CONC 31.4 g/dl (32.0-36.5); MEAN CORPUSCULAR VOLUME 100.3 fl (80.0-96.0); MONO % 17.9 % (0.0-5.0); NEUTROPHILS # 3.2 10^3/uL (1.8-7.7); NEUTROPHILS % 56.7 % (36.0-66.0); PLATELET COUNT, AUTOMATED 170 10^3/uL (150-450); WHITE BLOOD COUNT 5.6 10^3/uL (4.0-10.0)
[2018-11-15 02:47] LABS: INR 2.39; PROTHROMBIN TIME 25.9 SECONDS (11.8-14.0)
[2018-11-15 02:49] LABS: PARTIAL THROMBOPLASTIN TIME 68.6 SECONDS (25.0-38.4)
[2018-11-15 03:28] LABS: BLOOD UREA NITROGEN 22 MG/DL (7-18); CALCIUM LEVEL 8.4 MG/DL (8.8-10.2); CARBON DIOXIDE LEVEL 27 MEQ/L (21-32); CHLORIDE LEVEL 102 MEQ/L (98-107); CK-MB VALUE MASS < 1.0 NG/ML (<3.6); CPK CREATINE PHOSPHOKINASE 38 U/L (26-192); CREATININE FOR GFR 3.84 MG/DL (0.55-1.30); FREE T4 1.08 NG/DL (0.76-1.46); GLOMERULAR FILTRATION RATE 12.5 (>45); GLUCOSE, FASTING 101 MG/DL (70-100); MB/CK RELATIVE INDEX 2.63 (< OR =4); POTASSIUM SERUM 3.9 MEQ/L (3.5-5.1); SODIUM LEVEL 139 MEQ/L (136-145); TROPONIN I < 0.02 NG/ML (< 0.10)
[2018-11-15 05:13] VITALS: BP 132/88
--- NOTE | 2018-11-15 08:18 | REP ---
Left shoulder three views: Comparison is 03/30/2014. There is demineralization, unchanged. There is no fracture or dislocation. There are no calcifications or foreign bodies. [place] artifacts are superimposed over the clavicle. Old healed left rib fractures are again identified. The There is mild widening of the acromioclavicular joint, unchanged, nonspecific, congenital variant versus post-traumatic. Impression: No acute fracture or dislocation. Demineralization, unchanged. Nonspecific mild widening of the acromioclavicular joint, unchanged. [place] artifacts superimposed over the clavicle. Electronically Signed by Supa Metz MD 11/15/2018 08:10 A
--- NOTE | 2018-11-15 10:29 | ECGEPIP ---
[facility] - ED Test Date: 2018-11-15 Pat Name: MAICOL OCASIO Department: Room: - Gender: Female Construction Manager: : 1950 Requested By: WYATT Malik Order Number: [id number] Reading MD: Chava Valdivia Measurements Intervals [place] Rate: 110 P: [place]: -1 QRS: 38 QRSD: 90 T: QT: 341 QTc: 463 Interpretive Statements ATRIAL FIBRILLATION WITH RAPID VENTRICULAR RESPONSE Nonspecific T wave abnormality Similar to tracing done 09-13-18 with decreased rate Electronically Signed on 11-15-2018 10:28:57 EDT by Chava Valdivia
== END 2018-11-15 05:17 | disposition home or self-care (01) ==
LOC: M ED 01:05
DX: M25.512 Pain in left shoulder (principal); M19.90 Unspecified osteoarthritis, unspecified site; I12.0 Hypertensive chronic kidney disease with stage 5 chronic kidney disease or end stage renal disease; I48.91 Unspecified atrial fibrillation; Z79.01 Long term (current) use of anticoagulants; Z79.82 Long term (current) use of aspirin; Z79.891 Long term (current) use of opiate analgesic; Z79.899 Other long term (current) drug therapy; Z91.018 Allergy to other foods
CPT/HCPCS: 36415; 73030; 80048; 82550; 82553; 84439; 84443; 84484; 85025; 85610; 85730; 93005; 93041; 94760; 96374; 96375; 99285; J2270

== ENCOUNTER → 2018-11-21 | Outpatient (REF) | payer MEDICARE, MEDICAID ==
[2018-11-21 09:35] LABS: INR 3.75; PROTHROMBIN TIME 37.1 SECONDS (11.8-14.0)
== END ==
PROVIDERS: ATTEND Internal Medicine
DX: I48.91 Unspecified atrial fibrillation (principal)

== ENCOUNTER → 2018-11-23 | Outpatient (REF) | payer MEDICARE, MEDICAID ==
[2018-11-23 14:39] LABS: INR 1.57; PROTHROMBIN TIME 18.5 SECONDS (11.8-14.0)
== END ==
PROVIDERS: ATTEND Internal Medicine
DX: Z51.81 Encounter for therapeutic drug level monitoring (principal); Z79.01 Long term (current) use of anticoagulants

== ENCOUNTER → 2018-11-26 | Outpatient (REF) | payer MEDICARE, MEDICAID ==
[2018-11-26 13:03] LABS: INR 1.75; PROTHROMBIN TIME 20.2 SECONDS (11.8-14.0)
== END ==
PROVIDERS: ATTEND Internal Medicine
DX: N18.6 End stage renal disease (principal)

== ENCOUNTER → 2018-11-28 | Outpatient (REF) | payer MEDICARE, MEDICAID ==
[2018-11-28 09:41] LABS: INR 1.86; PROTHROMBIN TIME 21.2 SECONDS (11.8-14.0)
== END ==
PROVIDERS: ATTEND Internal Medicine
DX: I48.91 Unspecified atrial fibrillation (principal)

== ENCOUNTER → 2018-12-05 | Outpatient (REF) | payer MEDICARE, MEDICAID ==
[~2018-12-05] MED LIST changes: -OMEP20CA3 PO; +OMEP20CA4 PO
[2018-12-05 09:14] LABS: INR 2.06
== END ==
PROVIDERS: ATTEND Internal Medicine
DX: I48.91 Unspecified atrial fibrillation (principal)

== ENCOUNTER → 2018-12-12 | Outpatient (REF) | payer MEDICARE, MEDICAID ==
[2018-12-12 09:58] LABS: INR 2.71; PROTHROMBIN TIME 28.6 SECONDS (11.8-14.0)
== END ==
PROVIDERS: ATTEND Internal Medicine
DX: I48.91 Unspecified atrial fibrillation (principal)

== ENCOUNTER → 2018-12-19 | Outpatient (REF) | payer MEDICARE, MEDICAID ==
[2018-12-19 09:20] LABS: HEMATOCRIT 31.3 % (36.0-47.0); HEMOGLOBIN 9.7 g/dl (12.0-15.5); PLATELET COUNT, AUTOMATED 174 10^3/uL (150-450); RED BLOOD COUNT 3.13 10^6/uL (4.00-5.40)
[2018-12-19 09:30] LABS: INR 3.72; PROTHROMBIN TIME 36.9 SECONDS (11.8-14.0)
[2018-12-19 09:44] LABS: CALCIUM LEVEL 8.7 MG/DL (8.8-10.2); CREATININE FOR GFR 5.89 MG/DL (0.55-1.30); GLOMERULAR FILTRATION RATE 7.6 (>45); POTASSIUM SERUM 4.5 MEQ/L (3.5-5.1)
== END ==
PROVIDERS: ATTEND Internal Medicine
DX: I48.91 Unspecified atrial fibrillation (principal)

== ENCOUNTER → 2018-12-21 | Outpatient (REF) | payer MEDICARE, MEDICAID ==
[2018-12-21 11:40] LABS: INR 1.47; PROTHROMBIN TIME 17.6 SECONDS (11.8-14.0)
== END ==
PROVIDERS: ATTEND Internal Medicine
DX: I48.91 Unspecified atrial fibrillation (principal)

== ENCOUNTER → 2018-12-26 | Outpatient (REF) | payer MEDICARE, MEDICAID ==
[2018-12-26 11:41] LABS: INR 2.15; PROTHROMBIN TIME 23.8 SECONDS (11.8-14.0)
== END ==
PROVIDERS: ATTEND Internal Medicine
DX: I48.91 Unspecified atrial fibrillation (principal)

== ENCOUNTER → 2018-12-27 | Outpatient (REF) | payer MEDICARE, MEDICAID ==
[2018-12-27 07:29] LABS: INR 1.74; PROTHROMBIN TIME 20.1 SECONDS (11.8-14.0)
== END ==
PROVIDERS: ATTEND Internal Medicine
DX: I48.91 Unspecified atrial fibrillation (principal)

== ENCOUNTER → 2019-03-13 | Outpatient (REF) | payer MEDICARE, MEDICAID ==
[~2019-03-13] MED LIST changes: +ACET1TAB55 PO; +ALBU83IN INH; +ARTIDRO2 OU; +AYRSPR; +CEFD1CAP8 PO; +ELIQ2.5T PO; +ENEMENE PR; +GUAI5EL PO; +LIDO1CRE2 TOP; +METO1TAB32 PO; +MUCI600T31 PO; -OMEP40CA2 PO; +OMEP40CA97 PO; +RANI150T14 PO; +TYLE650T38 PO; +VITA1CAP25 PO; +ZOFR4TAB16 PO; +[UNRECOGNIZED DRUG - CODE] MT
--- NOTE | 2019-03-13 15:13 | REP ---
Single view chest: 03/13/2009. Indication: Fever. Comparison: 09/05/2018. Findings: Poor inspiratory result is present. Perihilar vasculature appears mildly prominent. Increased interstitial markings are present bilaterally. Cardiomegaly is present. There may be air space consolidation within the right lower lobe. No pneumothorax or significant pleural fluid is detected. Impression: Poor inspiratory result with findings suggestive of early pulmonary edema. Possible right lower lobe pneumonia as well. Recommend repeat PA and lateral films. Electronically Signed by Henry Tavarez DO 03/13/2019 03:04 P
[2019-03-13 16:01] LABS: APPEARANCE, URINE MANUAL CLOUDY (CLEAR); COLOR, URINE MANUAL RED (YELLOW)
[2019-03-13 16:02] LABS: GLUCOSE, URINE (UA) MANUAL NEGATIVE (NEGATIVE); PROTEIN, URINE MANUAL 3+ mg/dL (NEGATIVE); SPECIFIC GRAVITY,URINE MANUAL 1.015 (1.002-1.035)
[2019-03-13 16:03] LABS: BILIRUBIN, URINE MANUAL NEGATIVE (NEGATIVE); BLOOD URINE MANUAL POSITIVE (NEGATIVE); KETONE, URINE MANUAL 1+ mg/dL (NEGATIVE); LEUKOCYTE ESTERASE, URINE MAN POSITIVE (NEGATIVE); NITRITE, URINE MANUAL POSITIVE (NEGATIVE); UROBILINOGEN, URINE MANUAL NORMAL (NORMAL)
[2019-03-13 16:05] LABS: RBC, URINE TNTC /hpf (0-3)
[2019-03-13 16:07] LABS: BACTERIA, URINE MOD AMOUNT; SQUAMOUS EPITHELIAL CELL URINE MOD AMOUNT /hpf (SMALL AMT)
[2019-03-13 16:12] LABS: BASO % 0.4 % (0.0-1.0); EOS % 0.1 % (0.0-3.0); HEMOGLOBIN 11.7 g/dl (12.0-15.5); LYMPH % 12.6 % (24.0-44.0); MEAN CORPUSCULAR HEMOGLOBIN 31.3 pg (27.0-33.0); MEAN CORPUSCULAR HGB CONC 31.6 g/dl (32.0-36.5); MEAN CORPUSCULAR VOLUME 98.9 fl (80.0-96.0); MONO # 1.2 10^3/uL (0.0-0.8); MONO % 14.9 % (0.0-5.0); NEUTROPHILS # 5.5 10^3/uL (1.5-8.5); NEUTROPHILS % 71.6 % (36.0-66.0); PLATELET COUNT, AUTOMATED 136 10^3/uL (150-450); RED BLOOD COUNT 3.74 10^6/uL (4.00-5.40); WHITE BLOOD COUNT 7.7 10^3/uL (4.0-10.0)
[2019-03-13 16:36] LABS: ALBUMIN 3.5 GM/DL (3.2-5.2); BILIRUBIN,TOTAL 1.4 MG/DL (0.2-1.0); CALCIUM LEVEL 8.6 MG/DL (8.8-10.2); CREATININE FOR GFR 9.68 MG/DL (0.55-1.30); GLOMERULAR FILTRATION RATE 4.3 (>45); POTASSIUM SERUM 5.4 MEQ/L (3.5-5.1); TOTAL PROTEIN 6.6 GM/DL (6.4-8.2)
== END ==
PROVIDERS: ATTEND Internal Medicine
DX: R50.9 Fever, unspecified (principal)

== ENCOUNTER 2019-03-15 10:35 | Inpatient (IN) | payer MEDICARE, MEDICAID ==
[~2019-03-15] VITALS: Ht 167.6 cm; Wt 73.2 kg
[~2019-03-15 10:35] MED LIST changes: -ACET1TAB55 PO; -ALBU83IN INH; -ARTIDRO2 OU; -AYRSPR; -CEFD1CAP8 PO; -ELIQ2.5T PO; -ENEMENE PR; -GUAI5EL PO; -LIDO1CRE2 TOP; -METO1TAB32 PO; -MUCI600T31 PO; -RANI150T14 PO; -TYLE650T38 PO; -VITA1CAP25 PO; -ZOFR4TAB16 PO; -[UNRECOGNIZED DRUG - CODE] MT
[2019-03-15] MEDS ORDERED: ALBUTEROL SULFATE 2.5 MG/0.5 ML INH NEB SOLN INH ONE (10:45)
[2019-03-15] MEDS ORDERED: methylPREDNISolone INJ 125 MG/2 ML VIAL (J2930) IV ONE (10:45)
[2019-03-15] MEDS ORDERED: IPRATROPIUM 0.5MG/ALBUTEROL 2.5MG INH SOL UD 3ML (DUONEB)(J7620) NEB ONE (10:45)
[2019-03-15 11:28] LABS: ABG BASE EXCESS -0.4 (-2.0-2.0); ABG HCO3 26.6 MEQ/L (22.0-26.0); ABG O2 SATURATION 99.6 % (95.0-99.0); ABG PARTIAL PRESSURE CO2 54.6 mmHg (35.0-45.0); ABG PARTIAL PRESSURE O2 217.9 mmHg (75.0-100.0); ABG STANDARD HCO3 24.2 MEQ/L (22.0-26.0); ABG TOTAL CO2 28.2 MEQ/L (23.0-31.0); ABG pH (ARTERIAL) 7.305 UNITS (7.350-7.450)
--- NOTE | 2019-03-15 11:49 | REP ---
Portable chest x-ray: Single view. History: Dyspnea and cough. Comparison chest x-ray March 13, 2019. Findings: Oxygen delivery tubing and monitoring electrodes are seen. There is moderate cardiomegaly again observed. Pulmonary vasculature essentially prominent. Interstitial markings are diffusely prominent. There is no evidence of pleural effusion. Interstitial changes appear to be chronic. There is diffuse osteopenia. The aorta is tortuous. Impression: Moderate cardiomegaly. Vascular congestion. Chronically prominent pulmonary interstitial markings. No focal infiltrate or pleural effusion seen. Electronically Signed by Dustin Donahue MD 03/15/2019 11:41 A
[2019-03-15] MEDS ORDERED: CEFD1CAP8 PO (11:52)
[2019-03-15] MEDS ORDERED: ZOFR4TAB16 PO (11:52)
[2019-03-15] MEDS ORDERED: GUAI5EL PO (11:52)
[2019-03-15] MEDS ORDERED: ALBU83IN INH (11:52)
[2019-03-15] MEDS ORDERED: ACET1TAB55 PO (11:52)
[2019-03-15] MEDS ORDERED: ARTIDRO2 OU (11:53)
[2019-03-15] MEDS ORDERED: NEPH1TAB11 PO (11:53)
[2019-03-15] MEDS ORDERED: TYLE650T38 PO (11:53)
[2019-03-15] MEDS ORDERED: METO1TAB32 PO (11:53)
[2019-03-15] MEDS ORDERED: ELIQ2.5T PO (11:53)
[2019-03-15] MEDS ORDERED: LIDO1CRE2 TOP (11:53)
[2019-03-15] MEDS ORDERED: [UNRECOGNIZED DRUG - CODE] MT (11:53)
[2019-03-15] MEDS ORDERED: RENV2TAB PO (11:53)
[2019-03-15] MEDS ORDERED: RANI150T14 PO (11:53)
[2019-03-15] MEDS ORDERED: AYRSPR (11:53)
[2019-03-15] MEDS ORDERED: ENEMENE PR (11:53)
[2019-03-15] MEDS ORDERED: MUCI600T31 PO (11:53)
[2019-03-15] MEDS ORDERED: VITA1CAP25 PO (11:53)
[2019-03-15 11:59] LABS: BASO % 0.5 % (0.0-1.0); EOS # 0.1 10^3/uL (0.0-0.5); EOS % 1.7 % (0.0-3.0); HEMATOCRIT 32.8 % (36.0-47.0); HEMOGLOBIN 10.3 g/dl (12.0-15.5); LYMPH # 1.3 10^3/uL (1.5-5.0); LYMPH % 21.3 % (24.0-44.0); MEAN CORPUSCULAR HEMOGLOBIN 31.6 pg (27.0-33.0); MEAN CORPUSCULAR HGB CONC 31.4 g/dl (32.0-36.5); MEAN CORPUSCULAR VOLUME 100.6 fl (80.0-96.0); MONO # 1.3 10^3/uL (0.0-0.8); NEUTROPHILS # 3.2 10^3/uL (1.5-8.5); NEUTROPHILS % 54.3 % (36.0-66.0); PLATELET COUNT, AUTOMATED 147 10^3/uL (150-450); RED BLOOD COUNT 3.26 10^6/uL (4.00-5.40); WHITE BLOOD COUNT 5.9 10^3/uL (4.0-10.0)
[2019-03-15 12:33] LABS: ALBUMIN 3.4 GM/DL (3.2-5.2); ALT/SGPT 9 U/L (12-78); BILIRUBIN,DIRECT 0.2 MG/DL (0.0-0.2); BLOOD UREA NITROGEN 21 MG/DL (7-18); CALCIUM LEVEL 8.4 MG/DL (8.8-10.2); CARBON DIOXIDE LEVEL 29 MEQ/L (21-32); CHLORIDE LEVEL 102 MEQ/L (98-107); CK-MB VALUE MASS 2.6 NG/ML (<3.6); CPK CREATINE PHOSPHOKINASE 51 U/L (26-192); CREATININE FOR GFR 6.12 MG/DL (0.55-1.30); GLOMERULAR FILTRATION RATE 7.3 (>45); GLUCOSE, FASTING 100 MG/DL (70-100); POTASSIUM SERUM 4.3 MEQ/L (3.5-5.1); SODIUM LEVEL 140 MEQ/L (136-145); TOTAL PROTEIN 6.5 GM/DL (6.4-8.2); TROPONIN I < 0.02 NG/ML (< 0.10)
[2019-03-15 13:01] LABS: NT-PRO BNP 113111 PG/ML (<125)
[2019-03-15] MEDS ORDERED: IPRATROPIUM 0.5MG/ALBUTEROL 2.5MG INH SOL UD 3ML (DUONEB)(J7620) NEB PRN (14:45)
[2019-03-15] MEDS ORDERED: ONDANSETRON 4 MG TAB (S0181) PO PRN (14:45)
[2019-03-15] MEDS ORDERED: BISACODYL 10 MG SUPP PR PRN (14:45)
[2019-03-15] MEDS ORDERED: METOPROLOL SUCC *XL* 25MG TAB (TopROL *XL*) PO ONE (15:00)
--- NOTE | 2019-03-15 15:55 | HPE ---
DATE OF ADMISSION: 03/15/2019 PRIMARY CARE PROVIDER: Dr. John LIFE TEACHER: Dr. Essie Marx PRINCIPAL DIAGNOSES: 1. Atrial fibrillation with rapid ventricular response. 2. Congestive heart failure (CHF), acute on chronic with preserved ejection fraction. HISTORY: Margarita Hua is a 68-year-old dialysis dependent patient of Dr. Gisela John, who was admitted to the hospitalist service for atrial fibrillation with rapid ventricular response. She has been ill with rhinovirus/enterovirus respiratory infection diagnosed on 03/13/2019 by respiratory panel. She also had an Escherichia (E) coli urinary tract infection (UTI). She missed her dialysis Monday, she had it last night. Today she presents to the emergency room with atrial fibrillation, rapid ventricular response, heart rate in the 120s, shortness of breath and radiographic evidence of congestive heart failure. She is being admitted for treatment of these conditions. 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 She has atrial fibrillation, anemia of chronic kidney disease, history of depression, metabolic bone disease, secondary hyperparathyroidism, hypertensive heart disease with hypertensive kidney disease, arthritis of the left shoulder, history of 7 cm enhancing left renal mass concerning for malignancy, not felt to be a surgical candidate by cardiology (last seen by urology 12/2017). SOCIAL HISTORY: Lives in [facility]. No alcohol. No cigarettes. ADVANCED DIRECTIVES: She has a Medical Orders for Life Sustaining Treatment (MOLST) form that specifies DO NOT RESUSCITATE, DO NOT INTUBATE, trial of IV fluids acceptable, antibiotics when necessary, no tube feedings. This was updated with no changes on 10/31/2018. FAMILY HISTORY: Noncontributory. REVIEW OF SYSTEMS: No hemoptysis, rectal bleeding, epistaxis, chest pain. She has some mild palpitations. She has had a cold the last few days. She had a respiratory panel done on 03/13/2019 that showed rhinovirus/enterovirus. They repeated it today and it is still positive for rhinovirus/enterovirus. She had Escherichia (E) coli urinary tract infection on 03/13/2019. MEDICATIONS: - Tylenol every 4 hours as needed - albuterol via nebulizer as needed - Eliquis 2.5 mg twice a day - aspirin 81 mg daily - Colace as needed - Cefdinir 300 mg every 2 days, presumably for her recent UTI - Robitussin 10 mL three times a day for cough - Mucinex ER 600 mg every 12 hours scheduled for cough - Toprol XL 25 mg four days a week - mirtazapine 7.5 mg at night - Zofran 4 mg every 4 hours as needed for nausea - Percocet 5/325 twice a day as needed for severe pain - Paxil 20 mg daily - artificial tears - ranitidine 150 mg twice a day - Senokot S two tablets twice a day scheduled - Renvela 1600 mg with meals - vitamin B complex - vitamin D 50,000 units weekly ALLERGIES: KENA PHYSICAL EXAMINATION: 153/71, pulse 110 to 128, respiratory rate 18, 96% oxygen saturation on 2 liters. GENERAL APPEARANCE: Elderly, frail, resting comfortably in no distress. HEENT: Pupils are equal, round and reactive to light. Tympanic membranes and oropharynx benign. NECK: No masses. LUNGS: Decreased breath sounds. Scattered rhonchi. HEART: Rapid regular rate and rhythm, 2/6 systolic ejection murmur. ABDOMEN: Soft, nontender. No masses. Trace peripheral edema. LABORATORIES: White count 5.9, hemoglobin 10.3, platelets 147. Sodium 140, potassium 4.3, BUN 41, creatinine 6.1, BNP is 113,000. ABG is 7.30/56/217. Respiratory panel is unchanged from the positive respiratory panel from 2 days ago. Chest x-ray shows increased interstitial markings, chronic cardiomegaly. IMPRESSION: 1. Atrial fibrillation with rapid ventricular response. She will be admitted to progressive care unit (PCU) bed under the care of the hospitalist. Serial cardiac enzymes have been ordered. We will increase her metoprolol ER to 225 mg daily, giving a dose today and then begin daily dosing tomorrow. Anticoagulation with Eliquis. 2. End stage renal disease. I communicated with Dr. Marx and he will see her for dialysis. 3. Congestive heart failure (CHF). Volume needs to be regulated by her dialysis. Nephrology has been consulted. 4. Escherichia (E) coli urinary tract infection (UTI). Continue Cefdinir 300 mg every 2 days. 5. History of chronic obstructive pulmonary disease (COPD). Continue with nebulized bronchodilator. 6. History of depression. Continue Remeron at 7.5 mg at night and paroxetine 20 mg daily.
[2019-03-15] MEDS: ACETAMINOPHEN TAB 650MG DOSE (2X325MG) PO PRN (17:49)
[2019-03-15] MEDS ORDERED: guaiFENesin ER 600 MG TAB PO ONE (18:00)
[2019-03-15] MEDS ORDERED: SLF 3 ML SYR IV PRN (18:15)
[2019-03-15 20:00] VITALS: BP 123/93
[2019-03-15] MEDS: IPRATROPIUM 0.5MG/ALBUTEROL 2.5MG INH SOL UD 3ML (DUONEB)(J7620) NEB SCH (20:00)
--- NOTE | 2019-03-15 20:07 | ECGEPIP ---
[facility] - ED Test Date: 2019-03-15 Pat Name: MAICOL OCASIO Department: Room: - Gender: Female Etl Analyst: : 1950 Requested By: Alfredo Roger Order Number: [id number] Reading MD: Alfredo Roger Measurements Intervals [place] Rate: 100 P: [place]: 0 QRS: 45 QRSD: 101 T: -46 QT: 341 QTc: 441 Interpretive Statements ATRIAL FIBRILLATION WITH RAPID VENTRICULAR RESPONSE NONSPECIFIC T-WAVE ABNORMALITY DELAYED R WAVE PROGRESSION CW 11/15/[address] T WAVE CHANGES Electronically Signed on 03-15-2019 20:06:52 EDT by Alfredo Roger
[2019-03-15] MEDS: guaiFENesin SYRUP 200 MG/10 ML UDC PO SCH (21:32)
[2019-03-15] MEDS: MIRTAZAPINE 7.5MG PER 1/2 TABLET PO SCH (21:33)
[2019-03-15] MEDS: POLYVINYL ALCOHOL OPHTH SOLN 15 ML(LIQUITEARS) OU SCH (21:34)
[2019-03-15] MEDS: SENOKOT S TAB PO SCH (21:34)
[2019-03-15] MEDS: FAMOTIDINE 20 MG TAB PO SCH (21:34)
[2019-03-15] MEDS: APIXABAN 2.5 MG TAB (ELIQUIS) PO SCH (21:35)
[2019-03-15 21:38] LABS: CK-MB VALUE MASS 2.6 NG/ML (<3.6); CPK CREATINE PHOSPHOKINASE 73 U/L (26-192); MB/CK RELATIVE INDEX 3.56 (< OR =4); TROPONIN I < 0.02 NG/ML (< 0.10)
[2019-03-15] MEDS: ASPIRIN 81 MG ENTERIC TAB PO SCH (21:39)
[2019-03-15] MEDS: PARoxetine 20 MG TAB PO SCH (21:42)
[2019-03-15] MEDS: (RENVELA) SEVELAMER **CARBONate** 800 MG TAB PO SCH (21:42)
[2019-03-15] MEDS: CEFDINIR 300 MG CAP (OMNICEF) PO SCH (21:43)
--- NOTE | 2019-03-15 21:53 | CR ---
DATE OF CONSULTATION: 03/15/2019 REQUESTING PHYSICIAN: Dr. Jung Jackson CONSULTING PHYSICIAN: Dr. Marx REASON FOR CONSULTATION: Management of fluid overload in this patient with a history of end-stage renal disease. CHIEF COMPLAINT: Patient presented to the hospital today in the afternoon with progressive shortness of breath. HISTORY OF THE PRESENT ILLNESS: Margarita Hua is a 68-year-old female with a past medical history of end-stage renal disease, on hemodialysis every Monday, Monday, Monday, history of hypertensive heart disease, history of atrial fibrillation. She missed her last Monday dialysis and actually had the dialysis done yesterday. But despite having dialysis, the patient reports that she kept on having persistent shortness of breath. She presented to the emergency room today. She was found to be in atrial fibrillation with a rapid ventricular rate and further evaluation also showed that she was in congestive heart failure. The patient was admitted to the hospital. Nephrology service was called for further help in the management of this patient with decompensated congestive heart failure and fluid overload. The patient needed my immediate attention. I saw and evaluated the patient at the bedside in the evening. I had already arranged her urgent hemodialysis done. The patient was getting hemodialysis when I saw her at the bedside. PAST MEDICAL HISTORY: End-stage renal disease, on hemodialysis every Monday, Monday, Monday. History of atrial fibrillation. Anemia in end-stage renal disease. Chronic kidney disease mineral bone disease. Depression. Secondary hyperparathyroidism secondary to renal failure. Hypertension with chronic kidney disease. Hypertensive heart disease. History of left renal mass but not a surgical candidate. PAST SURGICAL HISTORY: Status post arteriovenous (AV) fistula placement. ALLERGIES: Patient is allergic to MANGOES. FAMILY HISTORY: No significant family history of end-stage renal disease requiring hemodialysis. SOCIAL HISTORY: Patient is a resident of [facility]. There is no history of drug abuse or alcohol abuse. REVIEW OF SYSTEMS: CONSTITUTIONAL: The patient reports some chills, but she denies any fevers. EYES: She denies any blurry vision, double vision. ENT: She denies any dysphagia, odynophagia, ear discharge. CARDIOVASCULAR: She denies any chest pain. She does report palpitations. RESPIRATORY: She reports shortness of breath and some cough. GASTROINTESTINAL: She denies any nausea or vomiting. GENITOURINARY: She denies any dysuria or hematuria. MUSCULOSKELETAL: She denies any muscle aches and pains. SKIN: She denies any rashes or ulcers. HEMATOLOGIC/ONCOLOGIC: She denies any easy bleeding or bruising. ENDOCRINE: She reports a history of secondary hyperparathyroidism. CENTRAL NERVOUS SYSTEM (BELLY DUMP DRIVER): She denies any strokes or seizures. All other review of systems is negative. PHYSICAL EXAMINATION: GENERAL: The patient is awake, alert, oriented times three, sitting up in the bed getting hemodialysis done, mild respiratory distress. VITAL SIGNS: Temperature is 98.9 degrees Fahrenheit, blood pressure 119/60, pulse is 122, respiratory rate of 22, saturating 96% on nasal cannula at two liters. HEAD AND NECK EXAM: Extraocular muscles intact. Pupils equally round and reactive to light. Mucous membranes are moist. Neck is supple. There is elevation of jugular venous distention (JVD), more than 12 cm. CARDIOVASCULAR: S1, S2, irregularly irregular heart rate. 2+ edema of the bilateral lower extremities. RESPIRATORY: Decreased breath sounds at the bases. Inspiratory crackles bilaterally up to the mid lung zone and expiratory rhonchi bilaterally at the bases. ABDOMEN: Soft, obese, positive bowel sounds. MUSCULOSKELETAL: No clubbing or cyanosis. 2+ edema of the bilateral lower extremities. CENTRAL NERVOUS SYSTEM: No focal deficit. Power is 5/5 in all extremities. SKIN: No rashes or ulcers. LAB REVIEW: CBC showed a WBC of 5.9, hemoglobin 10.3, platelets are 147. ABG showed a pH of 7.30, pCO2 of 54, pO2 is 217, bicarbonate is 28, oxygen saturation is 99%. BMP showed sodium 140, potassium 4.3, chloride 102, bicarbonate 29, BUN 21, creatinine is 6.1, lactic acid is 1.3, calcium is 8.4, albumin is 3.4. BNP is 113,000. Microbiology: Respiratory viral panel is positive for Rhinovirus/Enterovirus. Blood cultures are pending. IMAGING: A chest x-ray was done, which showed moderate cardiomegaly, vascular congestion, chronically prominent interstitial markings. No focal infiltrate or pleural effusion was seen. CURRENT INPATIENT MEDICATIONS: Patient's inpatient medications include Mucinex as needed, Tylenol as needed, albuterol nebulization, DuoNeb nebulization every 2 hours as needed for shortness of breath and wheezing, Eliquis 2.5 mg by mouth twice a day, aspirin 81 mg by mouth daily, cefdinir 300 mg by mouth every 48 hours, Senokot-S two tablets twice a day, Solu-Medrol 125 mg IV times one dose, Toprol XL 25 mg by mouth daily, mirtazapine 7.5 mg nightly, Zofran as needed, Percocet as needed for severe pain, paroxetine 20 mg nightly, Renvela 1.6 grams by mouth with meals, vitamin B complex. ASSESSMENT: A 68-year-old female with end-stage renal disease, on hemodialysis every Monday, Monday, Monday, admitted at this time with atrial fibrillation with rapid ventricular rate and decompensated congestive heart failure, recently being treated for Escherichia (E) coli urinary tract infection (UTI). PLAN: 1. End-stage renal disease, on hemodialysis. Patient's regular dialysis days are Monday, Monday, Monday. Today is her regular day, and she is fluid overloaded as well. She is getting emergent hemodialysis done. Ultrafiltration goal will be around 2.5 liters as tolerated by blood pressure. 2. Decompensated congestive heart failure. Patient's echocardiogram was done two years ago, and at that time, she was in atrial fibrillation as well and she had LV ejection fraction of around 50% with severely dilated right heart with tricuspid regurgitation and pulmonary hypertension. Repeat echocardiogram is being done. Regardless of her echocardiogram, she has a very high BNP level, significantly volume overloaded. She will need daily hemodialysis/ultrafiltration. She would be dialyzed again tomorrow morning. I will try to remove another 2.5 to 3 kg of fluid as tolerated by her blood pressure. 3. Recent Escherichia coli urinary tract infection. Patient continues to be on oral cefdinir. 4. Shortness of breath secondary to a combination of Rhinovirus/Enterovirus infection and decompensated congestive heart failure. Patient is getting nebulizations as well. Volume status is being optimized with dialysis. 5. Atrial fibrillation with rapid ventricular rate. Patient is chronically in atrial fibrillation. She is anticoagulated with Eliquis. Some of that is because of the fluid overload. Fluid status is being optimized. Continue current dose of metoprolol. 6. History of depression. Continue home dose of Remeron and paroxetine. 7. Anemia in end-stage renal disease. Hemoglobin is 10.3. Patient will be given a dose of Aranesp with dialysis tomorrow morning. Thank you for involving me in the care of this patient. I shall be happy to follow the patient along with you tomorrow morning.
[2019-03-15] MEDS: SLF 3 ML SYR IV SCH (22:52)
[2019-03-16] VITALS: BP 135/66
[2019-03-16] MEDS: PERCOCET 5MG/325MG TAB PO PRN ×2 (00:57→16:51)
[2019-03-16] MEDS: IPRATROPIUM 0.5MG/ALBUTEROL 2.5MG INH SOL UD 3ML (DUONEB)(J7620) NEB SCH ×4 (01:55→19:44)
[2019-03-16 04:00] VITALS: BP 123/76
[2019-03-16] MEDS: SLF 3 ML SYR IV SCH ×3 (05:00→20:27)
[2019-03-16 05:28] LABS: HEMATOCRIT 30.6 % (36.0-47.0); HEMOGLOBIN 9.3 g/dl (12.0-15.5); MEAN CORPUSCULAR HEMOGLOBIN 30.3 pg (27.0-33.0); MEAN CORPUSCULAR HGB CONC 30.4 g/dl (32.0-36.5); MEAN CORPUSCULAR VOLUME 99.7 fl (80.0-96.0); PLATELET COUNT, AUTOMATED 167 10^3/uL (150-450); RED BLOOD COUNT 3.07 10^6/uL (4.00-5.40); WHITE BLOOD COUNT 5.3 10^3/uL (4.0-10.0)
[2019-03-16 05:57] LABS: ALBUMIN 3.2 GM/DL (3.2-5.2); BLOOD UREA NITROGEN 17 MG/DL (7-18); CALCIUM LEVEL 8.7 MG/DL (8.8-10.2); CARBON DIOXIDE LEVEL 30 MEQ/L (21-32); CHLORIDE LEVEL 101 MEQ/L (98-107); CK-MB VALUE MASS 2.4 NG/ML (<3.6); CPK CREATINE PHOSPHOKINASE 43 U/L (26-192); CREATININE FOR GFR 3.94 MG/DL (0.55-1.30); GLOMERULAR FILTRATION RATE 12.1 (>45); GLUCOSE, FASTING 139 MG/DL (70-100); MB/CK RELATIVE INDEX 5.58 (< OR =4); PHOSPHORUS LEVEL 2.1 MG/DL (2.5-4.9); POTASSIUM SERUM 3.8 MEQ/L (3.5-5.1); SODIUM LEVEL 137 MEQ/L (136-145); TROPONIN I < 0.02 NG/ML (< 0.10)
[2019-03-16] MEDS: ASPIRIN 81 MG ENTERIC TAB PO SCH (06:37)
[2019-03-16] MEDS ORDERED: DARBEPOETIN 100 MCG/0.5 ML *NON-DIALYSIS* SYRINGE (J0881) SQ SCH (09:00)
[2019-03-16] MEDS ORDERED: METOPROLOL SUCC *XL* 25MG TAB (TopROL *XL*) PO SCH (09:00)
[2019-03-16] MEDS: (RENVELA) SEVELAMER **CARBONate** 800 MG TAB PO SCH ×3 (12:30→16:51)
[2019-03-16 12:45] VITALS: BP 131/75
[2019-03-16] MEDS: PARoxetine 20 MG TAB PO SCH (13:10)
[2019-03-16] MEDS: FAMOTIDINE 20 MG TAB PO SCH ×2 (13:11→20:26)
[2019-03-16] MEDS: SENOKOT S TAB PO SCH ×2 (13:12→20:26)
[2019-03-16] MEDS: guaiFENesin SYRUP 200 MG/10 ML UDC PO SCH ×3 (13:12→20:26)
[2019-03-16] MEDS: APIXABAN 2.5 MG TAB (ELIQUIS) PO SCH ×2 (13:12→20:26)
[2019-03-16] MEDS: NEPHRO-VIT TAB (NEPHROCAPS) PO SCH (13:12)
--- NOTE | 2019-03-16 13:46 | IPN ---
DATE: 03/16/2019 SUBJECTIVE: The patient was seen and examined at the bedside this morning during hemodialysis. She was emergently dialyzed last night but she is still fluid overloaded so an extra session of ultrafiltration was arranged today. She is tolerating the extra ultrafiltration today. She is afebrile and hemodynamically stable. She reports that her shortness of breath is significantly better today as compared with yesterday. OBJECTIVE: Vital signs: Temperature is 99.3 degrees Fahrenheit, blood pressure 123/76, pulse is 90, respiratory of 18, saturating 93% on room air. Intake and output: Ultrafiltration during hemodialysis yesterday was 2.2 liters. Weight on the bed scale is 77 kg. PHYSICAL EXAMINATION: General: The patient is awake, alert, oriented times three, laying in the bed in no apparent distress. Head and neck exam: Extraocular muscles are intact. Pupils equally round and reactive to light. The patient has a dilated external jugular vein and elevated jugular venous distention (JVD). Cardiovascular: S1, S2. Irregularly irregular heart rate. 2+ edema of the bilateral lower extremities. Respiratory: Decreased breath sounds bilaterally at the bases with inspiratory crackles at the bases. Abdomen: Soft, obese, positive bowel sounds. Nontender. Musculoskeletal: No clubbing or cyanosis. 2+ edema of the bilateral lower extremities. Central nervous system (BENDER MACHINE): No focal deficit. Power is 5/5 in all extremities. LABORATORY REVIEW: CBC showed WBC of 5.3, hemoglobin 9.3, platelets of 167. BMP showed sodium 137, potassium 3.8, chloride 101, bicarbonate 30, BUN 17, creatinine 3.9, phosphorus 2.1. Microbiology: Respiratory viral panel came back positive for rhinovirus/enterovirus. CURRENT INPATIENT MEDICATIONS: The patient's medications were all reviewed by me. There is metoprolol XL 25 mg by mouth daily at bedtime, which was started this morning. No other change in the medications today as compared with yesterday. ASSESSMENT/PLAN: 1. End-stage renal disease on hemodialysis. The patient's regular dialysis days are Monday, Monday, Monday. She was dialyzed yesterday and 2.2 liters of fluid was removed. However, because of her decompensated volume status, she is getting extra ultrafiltration done today. Next hemodialysis will be on Monday as per her regular schedule. 2. Decompensated heart failure with normal ejection fraction. Repeat echocardiogram is pending. Previous echocardiogram showed an ejection fraction of 50% with primary hypertension and dilated right heart. The patient does not make much urine. Extra ultrafiltration is being done today and I will try to remove 2.5 liters of fluid. If needed further extra sessions of ultrafiltration will be done as outpatient. 3. Escherichia (E) coli urinary tract infection. Continue oral cefdinir. 4. Atrial fibrillation with rapid ventricular rate. The patient got intravenous Cardizem yesterday. She continues to be on oral Eliquis. She has been started on metoprolol XL 25 mg by mouth daily. 5. Anemia in end-stage renal disease. The patient will get a dose of Aranesp with dialysis today.
[2019-03-16] MEDS ORDERED: METOPROLOL SUCC *XL* 25MG TAB (TopROL *XL*) PO ONE (15:00)
[2019-03-16 15:52] LABS: CK-MB VALUE MASS 3.6 NG/ML (<3.6); CPK CREATINE PHOSPHOKINASE 66 U/L (26-192); MB/CK RELATIVE INDEX 5.45 (< OR =4); TROPONIN I < 0.02 NG/ML (< 0.10)
[2019-03-16 16:00] VITALS: BP 123/75
--- NOTE | 2019-03-16 16:22 | IPNPDOC ---
Date Seen The patient was seen on 03/16/19. Progress Note SUBJECTIVE: 68-year-old female with past medical history of end-stage renal disease (dialysis on Monday, Monday, Monday), A. fib (on Eliquis), COPD, hypertension, anemia, was admitted for A. fib with RVR, likely due to volume overload from missing her dialysis on Monday. Patient underwent emergent dialysis yesterday along with an extra session of ultrafiltration today, removal of about 5 L of fluid total. She is currently in her room, reports significant improvement in dyspnea and cough, reports that she would like to go back home. She remains in A. fib, received Cardizem yesterday for rapid ventricular rate, she was also started on metoprolol succinate 25 mg daily, remains in rapid ventricular response, metoprolol increased to 50 mg daily. She denies any chest pain, abdominal pain, diarrhea or vomiting at this time. [facility]. 10 point review of systems negative except for above PHYSICAL EXAMINATION: VITAL SIGNS: Please see below. GENERAL: No distress, frail HEENT: Normocephalic, atraumatic, moist mucous membranes NECK: Supple CARDIOVASCULAR EXAMINATION: Irregularly irregular, tachycardic RESPIRATORY EXAMINATION: Distant, poor air movement, clear ABDOMINAL EXAMINATION: Soft, nontender, nondistended, positive bowel sounds EXTREMITIES: Left upper extremity AV fistula SKIN: No rash NEUROLOGICAL EXAMINATION: no focal deficits PSYCHIATRIC EXAMINATION: Calm and cooperative LABORATORY DATA, IMAGING STUDIES, MICROBIOLOGY: Please see below. Echocardiogram: Pending. DVT prophylaxis ordered?: No ASSESSMENT AND PLAN: 68-year-old female with history of end-stage renal disease on dialysis, A. fib, COPD, was admitted for A. fib with RVR secondary to volume overload from missing dialysis. PROBLEMS: 1. A. fib with RVR: . Status post Cardizem IV in the ED Increase metoprolol succinate to 50 mg daily. Continue Eliquis for anticoagulation 2. End-stage renal disease: . Hemodialysis on Monday, Monday and Monday Underwent emergent hemodialysis yesterday and extra session today, ultrafiltration of 5 L total. Continue home meds. (Renvela, Pepperrit). Nephrology following 3. COPD: . Stable, continue home meds, supplement oxygen to maintain O2 sats of 90%. 4. Hypertension. Continue home meds. DVT prophylaxis: Eliquis GI prophylaxis: Home Pepcid VS, I&O, 24H, Fishbone Vital Signs/I&O Vital Signs Date Time Temp Pulse Resp B/P (MAP) Pulse Ox O2 Delivery O2 Flow Rate FiO2 03/16/19 15:04 90 123/76 03/16/19 12:45 97.3 20 98 Nasal Cannula 2.0 I&O- Last 24 Hours up to 6 AM 03/16/19 06:00 Intake Total 0 ml Output Total 2200 ml Balance -2200 ml Laboratory Data 24H LABS Laboratory Tests 2 03/15/19 20:46: Total Creatine Kinase 73, Creatine Kinase MB 2.6, Creatine Kinase MB Relative Index 3.56, Troponin I < 0.02 03/16/19 05:14: Total Creatine Kinase 43, Creatine Kinase MB 2.4, Creatine Kinase MB Relative Index 5.58H, Troponin I < 0.02, Nucleated Red Blood Cells % (auto) 0.0, Anion Gap 6L, Glomerular Filtration Rate 12.1L, Calcium Level 8.7L, Phosphorus Level 2.1#L, Albumin 3.2 03/16/19 15:05: Total Creatine Kinase 66, Creatine Kinase MB 3.6, Creatine Kinase MB Relative Index 5.45H, Troponin I < 0.02 CBC/BMP Laboratory Tests 03/16/19 05:14 Microbiology Microbiology 03/15/19 Blood Culture - Preliminary, Resulted No growth after 24 hours . All specim... 03/15/19 Respiratory Virus Panel (PCR) ([facility]) - Final, Complete Human Rhinovirus/Enterovirus 03/15/19 Blood Culture - Preliminary, Resulted No growth after 24 hours . All specim... AL MARIE MD Mar 16, 2019 16:22
[2019-03-16 20:00] VITALS: BP 80/65
[2019-03-16] MEDS: MIRTAZAPINE 7.5MG PER 1/2 TABLET PO SCH (20:26)
[2019-03-16] MEDS: POLYVINYL ALCOHOL OPHTH SOLN 15 ML(LIQUITEARS) OU SCH (20:27)
[2019-03-16 20:30] VITALS: BP 114/68
[2019-03-17] VITALS: BP 107/68
[2019-03-17] MEDS: IPRATROPIUM 0.5MG/ALBUTEROL 2.5MG INH SOL UD 3ML (DUONEB)(J7620) NEB SCH ×4 (01:46→19:30)
[2019-03-17 04:00] VITALS: BP 124/85
[2019-03-17] MEDS: SLF 3 ML SYR IV SCH ×2 (04:34→14:05)
[2019-03-17 05:22] LABS: HEMATOCRIT 33.4 % (36.0-47.0); HEMOGLOBIN 10.1 g/dl (12.0-15.5); MEAN CORPUSCULAR HEMOGLOBIN 30.4 pg (27.0-33.0); MEAN CORPUSCULAR HGB CONC 30.2 g/dl (32.0-36.5); MEAN CORPUSCULAR VOLUME 100.6 fl (80.0-96.0); PLATELET COUNT, AUTOMATED 196 10^3/uL (150-450); RED BLOOD COUNT 3.32 10^6/uL (4.00-5.40); WHITE BLOOD COUNT 6.5 10^3/uL (4.0-10.0)
[2019-03-17 05:47] LABS: ALBUMIN 3.3 GM/DL (3.2-5.2); CALCIUM LEVEL 8.7 MG/DL (8.8-10.2); CREATININE FOR GFR 5.69 MG/DL (0.55-1.30); GLOMERULAR FILTRATION RATE 7.9 (>45); MAGNESIUM LEVEL 2.1 MG/DL (1.8-2.4); PHOSPHORUS LEVEL 2.3 MG/DL (2.5-4.9); POTASSIUM SERUM 3.6 MEQ/L (3.5-5.1)
[2019-03-17 08:00] VITALS: BP 130/72
[2019-03-17] MEDS: ASPIRIN 81 MG ENTERIC TAB PO SCH (08:24)
[2019-03-17] MEDS: (RENVELA) SEVELAMER **CARBONate** 800 MG TAB PO SCH ×3 (08:24→17:16)
[2019-03-17] MEDS: FAMOTIDINE 20 MG TAB PO SCH ×2 (08:24→20:04)
[2019-03-17] MEDS: SENOKOT S TAB PO SCH ×2 (08:24→20:04)
[2019-03-17] MEDS: NEPHRO-VIT TAB (NEPHROCAPS) PO SCH (08:24)
[2019-03-17] MEDS: PARoxetine 20 MG TAB PO SCH (08:24)
[2019-03-17] MEDS: APIXABAN 2.5 MG TAB (ELIQUIS) PO SCH ×2 (08:24→20:04)
[2019-03-17] MEDS: guaiFENesin SYRUP 200 MG/10 ML UDC PO SCH ×3 (08:28→20:03)
[2019-03-17] MEDS: METOPROLOL SUCC *XL* 25MG TAB (TopROL *XL*) PO SCH (08:28)
[2019-03-17] MEDS: PERCOCET 5MG/325MG TAB PO PRN ×2 (09:12→21:39)
--- NOTE | 2019-03-17 10:23 | IPNPDOC ---
Date Seen The patient was seen on 03/17/19. Progress Note SUBJECTIVE: 68-year-old female with past medical history of end-stage renal disease (dialysis on Monday, Monday, Monday), A. fib (on Eliquis), COPD, hypertension, anemia, was admitted for A. fib with RVR, likely due to volume overload from missing her dialysis on Monday. Patient underwent emergent dialysis yesterday along with an extra session of ultrafiltration today, removal of about 5 L of fluid total. She is currently in her room, reports significant improvement in dyspnea and cough, reports that she would like to go back home. She remains in A. fib, received Cardizem yesterday for rapid ventricular rate, she was also started on metoprolol succinate 25 mg daily, remains in rapid ventricular response, metoprolol increased to 50 mg daily. She denies any chest pain, abdominal pain, diarrhea or vomiting at this time. 03/17/2019 Patient reports improvement in dyspnea, continues to have cough productive of clear sputum, denies any chest pain, vomiting, abdominal pain, diarrhea. Rate control has been better overnight with increase in metoprolol dose. 10 point review of systems negative except for above PHYSICAL EXAMINATION: VITAL SIGNS: Please see below. GENERAL: No distress, frail HEENT: Normocephalic, atraumatic, moist mucous membranes NECK: Supple CARDIOVASCULAR EXAMINATION: Irregularly irregular, tachycardic RESPIRATORY EXAMINATION: Distant, poor air movement, clear ABDOMINAL EXAMINATION: Soft, nontender, nondistended, positive bowel sounds EXTREMITIES: Left upper extremity AV fistula SKIN: No rash NEUROLOGICAL EXAMINATION: no focal deficits PSYCHIATRIC EXAMINATION: Calm and cooperative LABORATORY DATA, IMAGING STUDIES, MICROBIOLOGY: Please see below. Echocardiogram: Pending. DVT prophylaxis ordered?: No ASSESSMENT AND PLAN: 68-year-old female with history of end-stage renal disease on dialysis, A. fib, COPD, was admitted for A. fib with RVR secondary to volume overload from missing dialysis. PROBLEMS: 1. A. fib with RVR: . Status post Cardizem IV in the ED Continue metoprolol succinate 50 mg daily, will increase as needed. Continue Eliquis for anticoagulation 2. End-stage renal disease: . Hemodialysis on Monday, Monday and Monday Plan for dialysis tomorrow Continue home meds. (Renvela, Pepperrit). Nephrology following 3. COPD: . Stable, continue home meds, supplement oxygen to maintain O2 sats of 90%. 4. Hypertension. Continue home meds. DVT prophylaxis: Eliquis GI prophylaxis: Home Pepcid VS, I&O, 24H, Fishbone Vital Signs/I&O Vital Signs Date Time Temp Pulse Resp B/P (MAP) Pulse Ox O2 Delivery O2 Flow Rate FiO2 03/17/19 09:12 20 Room Air 03/17/19 08:28 90 130/72 03/17/19 08:00 97.2 95 03/17/19 00:00 1.0 I&O- Last 24 Hours up to 6 AM 03/17/19 05:59 Intake Total 660 ml Output Total 2500 ml Balance -1840 ml Laboratory Data 24H LABS Laboratory Tests 2 03/16/19 15:05: Total Creatine Kinase 66, Creatine Kinase MB 3.6, Creatine Kinase MB Relative Index 5.45H, Troponin I < 0.02 03/17/19 05:04: Nucleated Red Blood Cells % (auto) 0.0, Anion Gap 7L, Glomerular Filtration Rate 7.9L, Calcium Level 8.7L, Phosphorus Level 2.3L, Magnesium Level 2.1, Albumin 3.3 CBC/BMP Laboratory Tests 03/17/19 05:04 Microbiology Microbiology 03/15/19 Blood Culture - Preliminary, Resulted No growth after 24 hours . All specim... 03/15/19 Respiratory Virus Panel (PCR) ([facility]) - Final, Complete Human Rhinovirus/Enterovirus 03/15/19 Blood Culture - Preliminary, Resulted No growth after 24 hours . All specim... AL MARIE MD Mar 17, 2019 10:23
[2019-03-17 12:21] VITALS: BP 145/76
[2019-03-17] MEDS: ACETAMINOPHEN TAB 650MG DOSE (2X325MG) PO PRN (15:42)
[2019-03-17 16:23] VITALS: BP 117/55
[2019-03-17] MEDS: CEFDINIR 300 MG CAP (OMNICEF) PO SCH (17:15)
[2019-03-17 20:00] VITALS: BP 122/62
[2019-03-17] MEDS: POLYVINYL ALCOHOL OPHTH SOLN 15 ML(LIQUITEARS) OU SCH (20:03)
[2019-03-17] MEDS: MIRTAZAPINE 7.5MG PER 1/2 TABLET PO SCH (20:03)
[2019-03-18] VITALS: BP 130/68
[2019-03-18] MEDS: SLF 3 ML SYR IV SCH ×4 (00:09→22:12)
[2019-03-18] MEDS: ACETAMINOPHEN TAB 650MG DOSE (2X325MG) PO PRN (00:09)
[2019-03-18] MEDS: IPRATROPIUM 0.5MG/ALBUTEROL 2.5MG INH SOL UD 3ML (DUONEB)(J7620) NEB SCH ×4 (01:13→20:25)
[2019-03-18 04:00] VITALS: BP 127/82
[2019-03-18 05:51] LABS: HEMATOCRIT 33.1 % (36.0-47.0); HEMOGLOBIN 9.9 g/dl (12.0-15.5); MEAN CORPUSCULAR HEMOGLOBIN 30.3 pg (27.0-33.0); MEAN CORPUSCULAR HGB CONC 29.9 g/dl (32.0-36.5); MEAN CORPUSCULAR VOLUME 101.2 fl (80.0-96.0); PLATELET COUNT, AUTOMATED 210 10^3/uL (150-450); RED BLOOD COUNT 3.27 10^6/uL (4.00-5.40)
[2019-03-18 06:14] LABS: ALBUMIN 3.1 GM/DL (3.2-5.2); CALCIUM LEVEL 8.9 MG/DL (8.8-10.2); CREATININE FOR GFR 7.57 MG/DL (0.55-1.30); GLOMERULAR FILTRATION RATE 5.7 (>45); PHOSPHORUS LEVEL 1.6 MG/DL (2.5-4.9); POTASSIUM SERUM 4.2 MEQ/L (3.5-5.1)
--- NOTE | 2019-03-18 06:34 | IPN ---
DATE OF SERVICE: 03/17/2019 SUBJECTIVE: Margarita is seen and examined this morning at the bedside. She complains of a dry cough. Otherwise has no complaints. She inquires in regards to discharge plans. She is due for dialysis tomorrow. OBJECTIVE: Vital Signs: Temperature 97.2, pulse 98, respiratory rate 20, blood pressure 130/72, saturating 95% on room air. Intake yesterday was 660, dialysis yesterday removed 2500, weight in the bed scale today is 75.5 kg. General: The patient is seen lying in bed. Elderly female in no acute distress. Extraocular muscles are intact. The jugular veins are less elevated than prior. Cardiac: S1 and S2, irregularly irregular. 1+ edema in the lower extremities. Respiratory: Symmetric air entry bilaterally. No crackles or rales. Abdomen is soft, obese and nontender. Musculoskeletal: There is a fistula present in the left arm with thrill and bruit. Neurologic: No focal deficits. Psychiatric: Appropriate mood and effect. Skin: Normal temperature and turgor. LABORATORY DATA: White count 6.5, hemoglobin 10.1, platelet 196. Sodium 140, potassium 3.6, BUN 30, magnesium 2.1. INPATIENT MEDICATIONS: Reviewed by myself and noted her metoprolol dose was increased by the primary team. Remainder of medications are unchanged from prior. PROBLEMS: 1. End-stage renal disease on hemodialysis on a Monday, Monday, Monday schedule. The patient did receive an extra hemodialysis session on Monday. Next dialysis will be on Monday with probable discharge after she has been dialyzed. 2. Atrial fibrillation with rapid ventricular response (RVR). Her beta mikhail dose was up titrated by the primary service. She is rate controlled. Pulse mostly in the 90s. She remains anticoagulated with Eliquis. 3. Anemia of chronic kidney disease (CKD). Hemoglobin is improved to 10.1 and she continues on the usual Aranesp. 4. Decompensated heart failure with preserved ejection fraction. She received two [id number] hemodialysis treatments. Next dialysis session will be on Monday with goal fluid removal of 2.5 liters as tolerated by her hemodynamics. She continues on moderate fluid restriction.
--- NOTE | 2019-03-18 07:30 | ECHO ---
DATE OF PROCEDURE:03/17/2019 REFERRING PHYSICIAN: Dr. Riggins and Dr. Jackson INDICATION: Hypoxemia. HEIGHT 150 cm WEIGHT 78 kg DIMENSIONS: IVS 1.0 LV 5.1 LVPW 1.1 LA 4.5 Aorta 3.4 RV 3.5 IVC 2.2 FINDINGS: The study is of fair technical quality with somewhat difficult visualization. None of the windows was of good quality. The patient is in atrial fibrillation with average heart rate around 100 beats per minute. Left ventricle is normal size. There is probably mild hypokinesis, even though the visualization was limited, I estimate EF around 50%. Right ventricle is dilated and hypokinetic. Both atria are severely enlarged. Aortic valve was poorly seen. It does not appear grossly sclerotic but I cannot comment much on its structure. Mitral and tricuspid valves appear normal. Pulmonic valve was not well seen. No pericardial effusion is noted. Inferior vena cava is dilated and there is no appreciable collapse with inspiration indicative of very high central venous pressure. Aortic root is normal. Aortic arch and abdominal aorta were not well seen. Doppler interrogation reveals no aortic stenosis and mild aortic insufficiency. There is also mild mitral insufficiency. At least moderate tricuspid insufficiency is present. Calculated pulmonary artery pressure is at minimum around 60 mmHg corresponding to moderately severe pulmonary hypertension. Evaluation of diastolic function is inconclusive due to underlying atrial fibrillation but tissue Doppler velocities of mitral annulus are relatively preserved ( 9.6 cm/sec at septal and 13.1 at lateral annulus). CONCLUSIONS: 1. Study is of fair technical quality. 2. Normal LV size with probably mild global hypokinesis with estimated EF around 50%. 3. Dilated hypokinetic right ventricle. 4. Severe biatrial enlargement. 5. Mild aortic and mitral insufficiency. 6. At least moderate tricuspid insufficiency. 7. High central venous pressure and moderately severe pulmonary hypertension. COMMENT: SBE prophylaxis is not recommended. The study is suggestive of chronic atrial fibrillation and most likely diastolic congestive heart failure that is acutely exacerbated. MTDD
[2019-03-18] MEDS: guaiFENesin SYRUP 200 MG/10 ML UDC PO SCH ×3 (07:56→20:01)
[2019-03-18] MEDS: (RENVELA) SEVELAMER **CARBONate** 800 MG TAB PO SCH ×3 (07:56→18:39)
[2019-03-18] MEDS: NEPHRO-VIT TAB (NEPHROCAPS) PO SCH (07:56)
[2019-03-18] MEDS: ASPIRIN 81 MG ENTERIC TAB PO SCH (07:56)
[2019-03-18] MEDS: APIXABAN 2.5 MG TAB (ELIQUIS) PO SCH ×2 (07:57→20:01)
[2019-03-18] MEDS: METOPROLOL SUCC *XL* 25MG TAB (TopROL *XL*) PO SCH (07:57)
[2019-03-18] MEDS: PARoxetine 20 MG TAB PO SCH (07:57)
[2019-03-18] MEDS: FAMOTIDINE 20 MG TAB PO SCH ×2 (07:57→20:00)
[2019-03-18] MEDS: SENOKOT S TAB PO SCH ×2 (07:57→20:00)
[2019-03-18 08:00] VITALS: BP 135/80
[2019-03-18 12:00] VITALS: BP 130/70
--- NOTE | 2019-03-18 12:09 | DS.PDOC ---
Discharge Summary General Date of Admission Mar 15, 2019 at 14:44 Date of Discharge 03/18/2019 Attending Physician: AL MARIE MD Discharge Summary PROCEDURES PERFORMED DURING STAY: None. ADMITTING DIAGNOSES: 1. A. fib with RVR, diastolic heart failure. DISCHARGE DIAGNOSES: 1. A. fib with RVR, diastolic heart failure. COMPLICATIONS/CHIEF COMPLAINT: Atrial Fibrillation With Rapid Ventricular Respons. HISTORY OF PRESENT ILLNESS: 68-year-old female with past medical history of end- stage renal disease on dialysis, CHF, anemia, A. fib, was admitted for A. fib with RVR and diastolic heart failure due to missing her dialysis. She underwent emergent dialysis, along with an extra session the following day, with significant improvement in symptoms and rate control. She is currently back to her baseline health, volume status is at baseline as well, will be discharged today after getting her scheduled dialysis.. HOSPITAL COURSE: As above. DISCHARGE MEDICATIONS: Please see below. ALLERGIES: Please see below. PHYSICAL EXAMINATION: VITAL SIGNS: Please see below. GENERAL: No distress, frail HEENT: Normocephalic, atraumatic, moist mucous membranes NECK: Supple CARDIOVASCULAR EXAMINATION: Irregularly irregular RESPIRATORY EXAMINATION: Scattered rhonchi ABDOMINAL EXAMINATION: Soft, nontender, nondistended, positive bowel sounds EXTREMITIES: Left upper extremity AV fistula SKIN: No rash NEUROLOGICAL EXAMINATION: Alert and oriented 3 PSYCHIATRIC EXAMINATION: Calm and cooperative LABORATORY DATA: Please see below. PROGNOSIS: Guarded ACTIVITY: As tolerated. DIET: Renal and cardiac DISCHARGE PLAN: Patient will follow with [facility] and PCP in 1-2 weeks DISPOSITION: . DISCHARGE INSTRUCTIONS: 1. As above. DISCHARGE CONDITION: Stable. TIME SPENT ON DISCHARGE: Greater than 35 minutes. Vital Signs/I&Os Vital Signs Date Time Temp Pulse Resp B/P (MAP) Pulse Ox O2 Delivery O2 Flow Rate FiO2 03/18/19 08:00 97.8 68 18 135/80 (98) 99 Room Air 03/17/19 00:00 1.0 I&O- Last 24 Hours up to 6 AM 03/18/19 06:00 Intake Total 640 ml Output Total 0 ml Balance 640 ml Laboratory Data Labs 24H Laboratory Tests 2 03/18/19 05:29: Nucleated Red Blood Cells % (auto) 0.0 03/18/19 05:30: Anion Gap 9, Glomerular Filtration Rate 5.7L, Calcium Level 8.9, Phosphorus Level 1.6#L, Albumin 3.1L CBC/BMP Laboratory Tests 03/18/19 05:29 03/18/19 05:30 Microbiology Microbiology 03/15/19 Blood Culture - Preliminary, Resulted No Growth after 48 hours. All Specime... 03/15/19 Respiratory Virus Panel (PCR) ([facility]) - Final, Complete Human Rhinovirus/Enterovirus 03/15/19 Blood Culture - Preliminary, Resulted No Growth after 48 hours. All Specime... Discharge Medications Scheduled Acetaminophen (Tylenol 8 Hour) 650 Mg Tablet.er, 650 MG PO TID, (Reported) Apixaban (Eliquis) 2.5 Mg Tablet, 2.5 MG PO BID, (Reported) Aspirin (Aspirin EC) 81 Mg Tabec, 81 MG PO DAILY, (Reported) Cefdinir (Cefdinir) 300 Mg Capsule, 300 MG PO Q2D, (Reported) STARTED 03/15/18 FOR 7 DAYS Cholecalciferol (Vitamin D3) (Vitamin D3) 50,000 Unit Capsule, 50,000 UNIT PO QWEEK, (Reported) FRIDAYS Guaifenesin (Guaifenesin) 100 Mg/5 Ml Liquid, 10 ML PO TID, (Reported) STARTED 03/13/19 FOR 7 DAYS Lidocaine (Lidocaine) 5 Gm Cream..g., 1 DOSE TOP TID, (Reported) APPLY SMALL AMOUNT TO NECK AND SHOULDER Metoprolol Succinate (Metoprolol Succinate) 25 Mg Tab.er.24h, 25 MG PO 4XWK, (Reported) SUN, TUES, THURS, SAT Mirtazapine (Mirtazapine) 7.5 Mg Tab, 7.5 MG PO QHS, (Reported) Oxycodone HCl/Acetaminophen (Percocet 5-325 mg Tablet) 1 Tab Tab, 1 TAB PO BID, (Reported) 0900, 2200 Paroxetine HCl (Paroxetine HCl) 20 Mg Tab, 20 MG PO DAILY, (Reported) Polyvinyl Alcohol (Artificial Tears) 15 Ml Drops, 1 DROP OU QHS, (Reported) Ranitidine HCl (Ranitidine HCl) 150 Mg Tablet, 1 TAB PO BID, (Reported) Sennosides/Docusate Sodium (Senokot-S Tablet) 1 Tab Tab, 2 TAB PO BID, (Reported) Sevelamer Carbonate (Renvela) 800 Mg Tablet, 1,600 MG PO WM, (Reported) Sodium Chloride ([place]) 2.65% [place], 1 SPRAY NA BID, (Reported) Vit B Comp No.3/Folic/C/Biotin (Nephro-Jake Rx Tablet) 1 Each Tablet, 1 TAB PO DAILY, (Reported) Scheduled PRN Albuterol Sulf (Albuterol Sulfate) 2.5 Mg/3 Ml Vial.neb, 2.5 MG INH Q4H PRN for SHORTNESS OF BREATH, (Reported) Bisacodyl (Bisacodyl) 10 Mg Sup, 10 MG [place] DAILY PRN for CONSTIPATION, (Reported) Dyclonine HCl (Sucrets Sore Throat) 2 Mg Lozenge, 2 MG MT Q2H PRN for SORE THROAT, (Reported) Ondansetron HCl (Zofran) 4 Mg Tablet, 4 MG PO Q4H PRN for NAUSEA, (Reported) Oxycodone HCl/Acetaminophen (Oxycodone-Acetaminophen 5-325) 1 Tab Tab, 1 TAB PO BID PRN for SEVERE PAIN (PS 8-10), (Reported) Sodium Phosphate,[place]-Dibasic (Enema) 133 Ml Enema, 1 AMINA [place] DAILY PRN for CONSTIPATION, (Reported) Allergies Coded Allergies: Sukh (Verified Allergy, Severe, SUKH SKINS - RASH, THROAT SWELLING, DIFF BREATHING, 11/15/18) AL MARIE MD Mar 18, 2019 12:09
[2019-03-18] MEDS: PERCOCET 5MG/325MG TAB PO PRN (13:06)
--- NOTE | 2019-03-18 14:08 | IPN ---
DATE OF SERVICE: 03/18/2019 SUBJECTIVE: The patient seen and examined this morning in the hemodialysis unit receiving her maintenance treatment with goal fluid removal of 3 kg. She is discharge pending postdialysis. She denies any new complaints or issues. Still is having a persistent mild cough which is at times dry and sometimes with clear sputum. Vital signs: Temperature 97.8, pulse 68, respiratory rate 18, blood pressure 135/80, saturating 99% on room air. Intake yesterday was not fully recorded. Dialysis today removed 3 liters. Weight in the bed scale today is 75.8 kg. General: The patient is seen in the dialysis unit receiving her treatment, awake, alert, oriented, comfortable, in no acute distress. Elderly female. Appears stated age. Moist mucous membranes. Neck is supple. Jugular veins were mildly elevated. Cardiac: Irregularly irregular. Compression stockings on both legs. Respiratory: Clear breath sounds bilaterally. No tachypnea or accessory muscle use. Abdomen is soft, obese, and nontender. Extremities show left upper extremity AV fistula, which is presently in use. Skin: Normal temperature and turgor. Psychiatric: Appropriate mood and affect. LABORATORIES: White count 7, hemoglobin 9.9, platelet 210. Sodium 138, potassium 4.2, phosphorus 1.6. INPATIENT MEDICATIONS: Reviewed by me and unchanged from prior. PROBLEMS: 1. End-stage renal disease, on hemodialysis on Monday, Monday, Monday schedule. She is being dialyzed today per her maintenance schedule. Her electrolytes and volume status are acceptable. 3 kg are being removed. She can be discharged postdialysis. 2. Atrial fibrillation (AFib) rapid ventricular response (RVR). She is rate controlled satisfactorily with beta mikhail and anticoagulated with Eliquis. 3. Anemia of chronic kidney disease (CKD). The patient continues on Aranesp. Hemoglobin is stable at 9.9. 4. Secondary hyperparathyroidism of renal origin. Her phosphorus levels have been running low on the hospital, but this is likely to improve once she is discharged and eating her usual diet. Okay to continue her current binder.
[2019-03-18 16:00] VITALS: BP 97/63
[2019-03-18 20:00] VITALS: BP 112/68
[2019-03-18] MEDS: MIRTAZAPINE 7.5MG PER 1/2 TABLET PO SCH (20:00)
[2019-03-18] MEDS: POLYVINYL ALCOHOL OPHTH SOLN 15 ML(LIQUITEARS) OU SCH (20:01)
[2019-03-19] VITALS: BP 118/68
[2019-03-19] MEDS: IPRATROPIUM 0.5MG/ALBUTEROL 2.5MG INH SOL UD 3ML (DUONEB)(J7620) NEB SCH ×2 (02:09→07:53)
[2019-03-19 04:00] VITALS: BP 122/64
[2019-03-19] MEDS: SLF 3 ML SYR IV SCH (06:00)
[2019-03-19 06:39] LABS: HEMATOCRIT 36.6 % (36.0-47.0); HEMOGLOBIN 11.4 g/dl (12.0-15.5); MEAN CORPUSCULAR HEMOGLOBIN 31.3 pg (27.0-33.0); MEAN CORPUSCULAR HGB CONC 31.1 g/dl (32.0-36.5); MEAN CORPUSCULAR VOLUME 100.5 fl (80.0-96.0); PLATELET COUNT, AUTOMATED 215 10^3/uL (150-450); RED BLOOD COUNT 3.64 10^6/uL (4.00-5.40); WHITE BLOOD COUNT 6.6 10^3/uL (4.0-10.0)
[2019-03-19 07:01] LABS: ALBUMIN 3.4 GM/DL (3.2-5.2); CALCIUM LEVEL 9.4 MG/DL (8.8-10.2); CREATININE FOR GFR 4.78 MG/DL (0.55-1.30); GLOMERULAR FILTRATION RATE 9.7 (>45); PHOSPHORUS LEVEL 1.3 MG/DL (2.5-4.9); POTASSIUM SERUM 4.1 MEQ/L (3.5-5.1)
[2019-03-19 08:00] VITALS: BP 132/67
[2019-03-19 08:26] VITALS: BP 122/64
[2019-03-19] MEDS: guaiFENesin SYRUP 200 MG/10 ML UDC PO SCH (08:26)
[2019-03-19] MEDS: FAMOTIDINE 20 MG TAB PO SCH (08:26)
[2019-03-19] MEDS: (RENVELA) SEVELAMER **CARBONate** 800 MG TAB PO SCH (08:26)
[2019-03-19] MEDS: NEPHRO-VIT TAB (NEPHROCAPS) PO SCH (08:26)
[2019-03-19] MEDS: SENOKOT S TAB PO SCH (08:26)
[2019-03-19] MEDS: APIXABAN 2.5 MG TAB (ELIQUIS) PO SCH (08:26)
[2019-03-19] MEDS: ASPIRIN 81 MG ENTERIC TAB PO SCH (08:26)
[2019-03-19] MEDS: METOPROLOL SUCC *XL* 25MG TAB (TopROL *XL*) PO SCH (08:26)
[2019-03-19] MEDS: PARoxetine 20 MG TAB PO SCH (08:27)
[2019-03-19 12:00] VITALS: BP 138/63
--- NOTE | 2019-03-19 15:39 | IPN ---
DATE OF SERVICE: 03/19/2019 SUBJECTIVE: Patient seen and examined this morning at the bedside. She has discharge pending. She was dialyzed yesterday with 3 liters of fluid removed and no reported issues with her hemodialysis treatment. She is anxious to be discharged. The patient has no concerns for me today. Temperature 97.8, pulse 98, respiratory rate 18, blood pressure 132/67, saturating 98% on room air. Intake yesterday was 1180, dialysis removed 3000, net negative 1800. Weight in the bed scale today 73.2 kg. General: The patient is seen sitting in bed awake, alert, oriented, comfortable, in no acute distress. Extraocular muscles are intact. Tongue is moist. Neck is supple. Heart sounds are irregularly irregular. Compression stockings present on both legs. Respiratory: Clear breath sounds. No tachypnea or accessory muscle use. Occasional cough noted. Abdomen is soft, obese and nontender. Extremities show patent left upper extremity fistula with dressing. Skin: Normal temperature and turgor. Psychiatric: Appropriate mood and effect. LABS: White count 6.6, hemoglobin 11.4, platelet 215. Sodium 136, potassium 4.1, bicarbonate 31, phosphorus 1.3. INPATIENT MEDICATION: Reviewed by myself and no change from prior. PROBLEMS: 1. End-stage renal disease on hemodialysis on a Monday, Monday, Monday schedule. The patient was dialyzed yesterday with 3 liters of fluid removed. Her electrolytes and volume status are acceptable. Her hypophosphatemia is likely to improve in the outpatient setting. She has discharge pending today. 2. Atrial fibrillation (AFib) with rapid ventricular response (RVR). She is rate controlled satisfactorily with beta-mikhail and anticoagulated with Eliquis. 3. Anemia of chronic kidney disease. She continues on Aranesp therapy. Goal hemoglobin is 10-11. DISPOSITION: The patient is stable for discharge from a nephrology point of view.
== END 2019-03-19 12:47 | DRG 291 ==
LOC: EDBD 10:35 → M ED 10:35 → M ED INP 14:44 → M PCU 17:30
PROVIDERS: ADMIT Family Medicine; ATTEND Internal Medicine
PROC: 5A1D70Z Performance of Urinary Filtration, Intermittent, Less than 6 Hours Per Day (ICD-10-PCS; principal; 2019-03-15)
DX: I13.2 Hypertensive heart and chronic kidney disease with heart failure and with stage 5 chronic kidney disease, or end stage renal disease (principal); I50.33 Acute on chronic diastolic (congestive) heart failure; N18.6 End stage renal disease; N39.0 Urinary tract infection, site not specified; N25.81 Secondary hyperparathyroidism of renal origin; I48.91 Unspecified atrial fibrillation; Z91.15 Patient's noncompliance with renal dialysis; Z79.899 Other long term (current) drug therapy; Z79.82 Long term (current) use of aspirin; Z91.018 Allergy to other foods; Z66 Do not resuscitate; J44.9 Chronic obstructive pulmonary disease, unspecified; F32.9 Major depressive disorder, single episode, unspecified; D63.1 Anemia in chronic kidney disease; N28.89 Other specified disorders of kidney and ureter; B96.29 Other Escherichia coli [E. coli] as the cause of diseases classified elsewhere

== ENCOUNTER → 2019-05-31 | Outpatient (REF) | payer MEDICARE, MEDICAID ==
[~2019-05-31] MED LIST changes: +ACET1TAB55 PO; +ALBU83IN INH; +ARTIDRO2 OU; +AYRSPR; +CEFD1CAP8 PO; +ELIQ2.5T PO; +ENEMENE PR; +GUAI5EL PO; +LIDO1CRE2 TOP; +METO1TAB32 PO; +MUCI600T31 PO; +OMEP-172 PO; -OMEP20CA4 PO; +RANI150T14 PO; +TYLE650T38 PO; +VITA1CAP25 PO; +ZOFR4TAB16 PO; +[UNRECOGNIZED DRUG - CODE] MT
--- NOTE | 2019-05-31 10:33 | REPPI ---
Chest x-ray: Single view. History: Chest pain. Comparison chest x-ray is from March 15, 2019. Findings: Moderate cardiac enlargement is again noted unchanged. The lungs are symmetrically aerated and no infiltrate is seen. There is very slight blunting of the right lateral pleural angle. Pulmonary vasculature is somewhat cephalized as before. The aorta is tortuous. There is diffuse osteopenia. Impression: Moderate cardiac enlargement. Slight blunting of the right lateral pleural angle. Pulmonary vascular cephalization. No evidence of pulmonary edema. Electronically Signed by Dustin Donahue MD 05/31/2019 10:42 A
[2019-05-31 11:07] LABS: CHOLESTEROL LEVEL 128 MG/DL (<200); CHOLESTEROL RISK RATIO 2.064 (<5); HDL CHOLESTEROL 62 MG/DL (>40); LDL CHOLESTEROL 43 MG/DL (<100); NON-HDL-C 66 MG/DL; TRIGLYCERIDES LEVEL 115 MG/DL (<150)
[2019-05-31 14:40] LABS: CK-MB VALUE MASS < 1.0 NG/ML (<3.6); CPK CREATINE PHOSPHOKINASE 26 U/L (26-192); MB/CK RELATIVE INDEX 3.85 (< OR =4); TROPONIN I < 0.02 NG/ML (< 0.10)
== END ==
PROVIDERS: ATTEND Internal Medicine
DX: I51.7 Cardiomegaly (principal); I28.8 Other diseases of pulmonary vessels

== ENCOUNTER → 2019-06-18 | Outpatient (REF) | payer MEDICARE, MEDICAID ==
[~2019-06-18] MED LIST changes: -OMEP-172 PO; +OMEP1CAP73 PO
[2019-06-18 10:15] LABS: HEMATOCRIT 33.8 % (36.0-47.0); HEMOGLOBIN 10.3 g/dl (12.0-15.5); MEAN CORPUSCULAR HEMOGLOBIN 31.2 pg (27.0-33.0); MEAN CORPUSCULAR HGB CONC 30.5 g/dl (32.0-36.5); MEAN CORPUSCULAR VOLUME 102.4 fl (80.0-96.0); PLATELET COUNT, AUTOMATED 150 10^3/uL (150-450); WHITE BLOOD COUNT 4.1 10^3/uL (4.0-10.0)
[2019-06-18 10:35] LABS: ALBUMIN 3.4 GM/DL (3.2-5.2); BILIRUBIN,TOTAL 0.8 MG/DL (0.2-1.0); CALCIUM LEVEL 8.4 MG/DL (8.8-10.2); CREATININE FOR GFR 3.75 MG/DL (0.55-1.30); GLOMERULAR FILTRATION RATE 12.8 (>45); POTASSIUM SERUM 4.2 MEQ/L (3.5-5.1); TOTAL PROTEIN 6.2 GM/DL (6.4-8.2)
== END ==
PROVIDERS: ATTEND Internal Medicine
DX: N18.6 End stage renal disease (principal)

== ENCOUNTER → 2019-07-22 | Outpatient (REF) | payer MEDICARE, MEDICAID ==
[~2019-07-22] MED LIST changes: -ARTIDRO2 OU; +POLYOPD OU
[2019-07-22 14:45] LABS: HEMATOCRIT 37.2 % (36.0-47.0); HEMOGLOBIN 11.7 g/dl (12.0-15.5); MEAN CORPUSCULAR HEMOGLOBIN 31.4 pg (27.0-33.0); MEAN CORPUSCULAR HGB CONC 31.5 g/dl (32.0-36.5); MEAN CORPUSCULAR VOLUME 99.7 fl (80.0-96.0); PLATELET COUNT, AUTOMATED 186 10^3/uL (150-450); RED BLOOD COUNT 3.73 10^6/uL (4.00-5.40); WHITE BLOOD COUNT 5.7 10^3/uL (4.0-10.0)
[2019-07-22 15:11] LABS: ALBUMIN 3.5 GM/DL (3.2-5.2); ALT/SGPT 18 U/L (12-78); BILIRUBIN,TOTAL 0.5 MG/DL (0.2-1.0); BLOOD UREA NITROGEN 59 MG/DL (7-18); CALCIUM LEVEL 8.9 MG/DL (8.8-10.2); CARBON DIOXIDE LEVEL 25 MEQ/L (21-32); CHLORIDE LEVEL 99 MEQ/L (98-107); CK-MB VALUE MASS < 1.0 NG/ML (<3.6); CPK CREATINE PHOSPHOKINASE 24 U/L (26-192); CREATININE FOR GFR 7.72 MG/DL (0.55-1.30); GLOMERULAR FILTRATION RATE 5.6 (>45); GLUCOSE, FASTING 96 MG/DL (70-100); MB/CK RELATIVE INDEX 4.17 (< OR =4); POTASSIUM SERUM 5.3 MEQ/L (3.5-5.1); SODIUM LEVEL 136 MEQ/L (136-145); TOTAL PROTEIN 6.6 GM/DL (6.4-8.2); TROPONIN I < 0.02 NG/ML (< 0.10)
== END ==
PROVIDERS: ATTEND Internal Medicine
DX: R11.10 Vomiting, unspecified (principal)

== ENCOUNTER → 2019-07-29 | Outpatient (REF) | payer MEDICARE, MEDICAID ==
[2019-07-29 13:09] LABS: ALBUMIN 3.1 GM/DL (3.2-5.2); BILIRUBIN,DIRECT 0.2 MG/DL (0.0-0.2); BILIRUBIN,TOTAL 0.4 MG/DL (0.2-1.0); TOTAL PROTEIN 5.9 GM/DL (6.4-8.2)
== END ==
PROVIDERS: ATTEND Internal Medicine
DX: R74.8 Abnormal levels of other serum enzymes (principal)

== ENCOUNTER → 2019-09-26 | Outpatient (CLI) | payer MEDICARE, MEDICAID ==
--- NOTE | 2019-09-26 17:45 | REP ---
MRI BRAIN WITHOUT CONTRAST: HISTORY: Left-sided headache. No comparison brain MRI study. Comparison head CT study, January 31, 2011. TECHNIQUE: Axial and sagittal imaging planes are utilized for T1- and T2-weighted scans. Sequences include spin-echo, fast spin echo, FLAIR, and diffusion weighted sequences. MRI FINDINGS: No bony calvarial lesion is seen. Craniocervical junction and upper cervical cord are unremarkable. On diffusion weighted scans, there is no evidence to suggest acute ischemia. There is no evidence of intracranial hemorrhage. There are microvascular chronic ischemic changes in the periventricular white matter bilaterally. The multifocal ependymal calcific deposit seen on the prior CT study from 2010 demonstrate areas of low T1- low T2 signal and appear to be unchanged on MRI. There is no evidence of intracranial mass lesion. Ventricles are unchanged in size and position. There is minimal generalized volume loss. No intraorbital abnormality is seen. Study is otherwise unremarkable. IMPRESSION: Small vessel atherosclerotic changes, mild diffuse atrophy. Previously noted ependymal calcifications in the lateral ventricles are again noted, unchanged from 2011. No acute intracranial abnormality. Electronically Signed by Dustin Donahue MD 09/27/2019 07:43 A
--- NOTE | 2019-09-26 17:48 | REP ---
MRI CERVICAL SPINE WITHOUT CONTRAST: HISTORY: Left-sided headache. Comparison cervical spine MRI study is from April 09, 2013. TECHNIQUE: Sagittal and axial T1- and T2-weighted scans are acquired in the usual fashion with and without fat saturation. Sequences include spin echo, turbo spin-echo, and STIR imaging sequences. FINDINGS: There is some motion artifact. There is generative spondylosis change. There is evidence of central canal stenosis at the C3-4 level due to a central disc broad-based protrusion and dorsal lateral ligamentum flavum hypertrophy. The AP dimension of the thecal sac at C3-4 is 5 mm on sagittal images here. These findings are somewhat more pronounced than on the prior study. There is central disc bulging at C2-3. At C4-5, there is diffuse disc bulging. Canal size is borderline. There is mild central disc bulging at C5-6. At C6-7, there is diffuse disc bulging which effaces the ventral margin of the thecal sac and flattens the ventral margin of the cord displacing it somewhat dorsally. No cord compression is seen. There may be some intramedullary cord edema at this level, question myelomalacia. It is difficult to be confident given the mild motion artifact. It is probably unchanged, however, from the 2013 study. At C7-T1, there is a small central disc bulge and diffuse disc bulging combined to flatten the ventral margin of the cord as well. IMPRESSION: Degenerative spondylosis changes with a spinal stenosis picture at C3-C4 and significant disc bulging at C5-6 and C6-7. Question T2 hyperintensity within the substance of the cord at the C6-7 disc level. This is not a change from prior study. Electronically Signed by Dustin Donahue MD 09/27/2019 07:43 A
== END ==
LOC: M RAD 14:31
PROVIDERS: ATTEND Physician Assistant
DX: R51 Headache (principal)

== ENCOUNTER → 2019-10-14 | Outpatient (REF) | PROVIDERS: ATTEND Internal Medicine | DX: Z03.818 Encounter for observation for suspected exposure to other biological agents ruled out (principal) ==

== ENCOUNTER → 2019-11-11 | Outpatient (REF) | payer MEDICARE, MEDICAID ==
--- NOTE | 2019-11-11 11:51 | REP ---
RIGHT ANKLE: Four views. HISTORY: Pain. Comparison radiographs are from October 09, 2014. FINDINGS: There is a screw plate fixation device in the distal tibial diaphysis and metaphysis as seen previously. There is an orthopedic screw in the distal tibial molly-metaphyseal region as well. There is a screw plate device in the distal fibula as well. Post traumatic deformity is seen. There is marked diffuse osteopenia and the fibula adjacent to the plate is very osteoporotic. Ankle mortise is intact. No definite acute erosive change. IMPRESSION: Marked diffuse osteopenia. Orthopedic fixation plates in the distal tibia and fibula. Marked radiolucency of the distal fibula. No definite acute erosive change. Electronically Signed by Dustin Donahue MD 11/11/2019 02:57 P
--- NOTE | 2019-11-11 12:06 | REP ---
RIGHT TIB/FIB SERIES: Four views. HISTORY: Pain. FINDINGS: There is marked diffuse osteoporosis. Orthopedic fixation devices are seen in the distal tibia and fibula. A prosthetic right knee joint is noted in place. There is soft tissue irregularity below a partial patellar remnant. 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 No patellar hardware is seen. No acute fracture is seen. IMPRESSION: Marked diffuse osteopenia. Old post-traumatic deformity of the fibula. Orthopedic fixation device is in the distal fibula and distal tibia. Right knee arthroplasty. Soft tissue irregularity below the somewhat elevated patella. No acute bony abnormality seen. Electronically Signed by Dustin Donahue MD 11/11/2019 02:57 P
--- NOTE | 2019-11-11 12:10 | REP ---
RIGHT FOOT SERIES: Four views. HISTORY: Pain. Comparison right foot radiographs are from September 08, 2014. FINDINGS: There is diffuse severe diffuse osteopenia. There is old post-traumatic deformity of the mid diaphysis of the 5th metatarsal unchanged. There is mild old post-traumatic deformity of the proximal phalanx of the 5th toe as well. There is some diffuse soft tissue swelling. No acute erosive change or acute fracture is seen. Vascular calcification is noted. IMPRESSION: Advanced diffuse osteopenia. Old post-traumatic deformities. No acute bony abnormality. Electronically Signed by Dustin Donahue MD 11/11/2019 02:57 P
== END ==
LOC: M RAD 10:30
PROVIDERS: ATTEND Physician Assistant
DX: M85.871 Other specified disorders of bone density and structure, right ankle and foot (principal); M89.8X6 Other specified disorders of bone, lower leg; Z96.651 Presence of right artificial knee joint; M79.661 Pain in right lower leg

== ENCOUNTER → 2019-12-02 | Outpatient (REF) | payer MEDICARE, MEDICAID ==
[2019-12-02 09:41] LABS: HEMATOCRIT 33.1 % (36.0-47.0); HEMOGLOBIN 10.7 g/dl (12.0-15.5); MEAN CORPUSCULAR HEMOGLOBIN 32.4 pg (27.0-33.0); MEAN CORPUSCULAR HGB CONC 32.3 g/dl (32.0-36.5); MEAN CORPUSCULAR VOLUME 100.3 fl (80.0-96.0); PLATELET COUNT, AUTOMATED 171 10^3/uL (150-450); WHITE BLOOD COUNT 11.6 10^3/uL (4.0-10.0)
[2019-12-02 10:09] LABS: CALCIUM LEVEL 8.8 MG/DL (8.8-10.2); CREATININE FOR GFR 7.21 MG/DL (0.55-1.30); POTASSIUM SERUM 5.1 MEQ/L (3.5-5.1)
--- NOTE | 2019-12-03 08:33 | REPPI ---
KUB ABDOMEN AND PELVIS: Two KUB films of the abdomen and pelvis performed. The study is extremely limited due to patient body habitus. No dilated bowel loops are seen with no compelling evidence for small bowel obstruction. Note is made of metallic internal fixation in the proximal left femur. IMPRESSION: No radiographic evidence of small bowel obstruction. Electronically Signed by Supa Cadena MD 12/03/2019 07:31 P
== END ==
PROVIDERS: ATTEND Nurse Practitioner Adult Health
DX: R50.9 Fever, unspecified (principal); C64.9 Malignant neoplasm of unspecified kidney, except renal pelvis
CPT/HCPCS: 74018; 80048; 83605; 85027; 87040; 87486; 87581; 87633; 87798; U0002

== ENCOUNTER → 2019-12-03 | Outpatient (REF) | payer MEDICARE, MEDICAID | PROVIDERS: ATTEND Physician Assistant | DX: R10.9 Unspecified abdominal pain (principal) ==

== ENCOUNTER → 2019-12-03 | Outpatient (CLI) | payer MEDICARE, MEDICAID ==
[~2019-12-03] MED LIST changes: +GASTROGRAFIN SOLUTION 30ML (Q9963) As Ordered ONE; -PROC5TA PO; +PROC5TAB57 PO
--- NOTE | 2019-12-03 14:33 | REP ---
RIGHT ANKLE, THREE VIEWS: Three views right ankle performed and compared to prior study of 11/11/2019. A metallic plate and multiple metallic screws are again seen in the distal tibia and fibula. There is marked osteopenia again noted. There is no definite acute change when compared to the prior study with no definite fracture or dislocation. IMPRESSION: Stable-appearing findings, as discussed above, with severe osteopenia, metallic internal fixation and no definite acute fracture. Electronically Signed by Supa Cadena MD 12/03/2019 07:39 P
--- NOTE | 2019-12-03 14:36 | REP ---
RIGHT LOWER LEG: AP and lateral views of the right lower leg performed. Metallic plate and multiple metallic screws are seen in the distal tibia as well as the distal fibula. Old healed fractures are seen of the mid and distal fibula, superior to the metallic plate. There is severe osteopenia. There is an acute fracture of the proximal tibia inferior to the tibia prosthesis at the knee joint. There is mild medial angulation and lateral displacement of a more distal shaft. The proximal fibula is not well visualized. I cannot exclude a subtle fracture of the proximal fibula. There is a prosthetic component also seen in the distal femur. IMPRESSION: Acute fracture proximal tibia with mild displacement and angulation. Cannot exclude fracture of the proximal fibula as it is not well visualized. Electronically Signed by Supa Cadena MD 12/03/2019 07:39 P
--- NOTE | 2019-12-03 14:39 | REP ---
CHEST, TWO VIEWS: Two views of the chest performed and compared to prior studies, most recent of which is 06/27/2019. There is cardiomegaly. There is vascular congestion. There is no focal infiltrate. Mild calcification of the thoracic aorta. The mediastinal silhouette is unchanged. There are mild degenerative changes of the spine with osteopenia. IMPRESSION: Cardiomegaly and vascular congestion appears similar to the prior studies with no acute infiltrate. Electronically Signed by Supa Cadena MD 12/03/2019 07:39 P
--- NOTE | 2019-12-03 16:19 | REP ---
REASON: Left-sided pain. The latest prior for comparison is 03/01/2017, also without contrast. Next latest prior, 02/14/2017 was also reviewed. That examination was performed after intravenous contrast administration. There are chronic lung base changes, status quo. There is four chamber cardiac enlargement. There are no pleural or pericardial effusions. There is cholelithiasis, status quo. The liver, spleen, pancreas, and adrenal glands are unchanged. Once again, there is evidence of polycystic renal disease, status quo. The large hemorrhagic cyst seen previously arising from the left kidney has resolved. Only a small hyperdense left renal cyst in that region persists. Limited evaluation of the abdominal aorta and para-aortic regions show no gross abnormalities or significant changes from the prior exam. There is no free fluid or free air in the abdomen or pelvis. The intra-abdominal and intrapelvic bowel loops and their mesenteries are essentially unchanged and again seen to be within normal limits. No intra-abdominal or intrapelvic mass or adenopathy has developed since the last exam. Bone window technique throughout the examination shows chronic changes with bony demineralization, status quo. The left hip stabilizing rods are also unchanged. IMPRESSION: 1. There is no evidence of acute abdominal or intrapelvic disease. 2. Polycystic renal disease bilaterally with resolution of the previously present large hemorrhagic left renal cyst with only a subtle hyperdense cyst remaining. 3. Known cholelithiasis. 4. Other findings and chronic changes as described above. Electronically Signed by Jarrod Eugene DO 12/03/2019 05:31 P
== END ==
LOC: M RAD 09:40
PROVIDERS: ATTEND Physician Assistant
DX: S82.121A Displaced fracture of lateral condyle of right tibia, initial encounter for closed fracture (principal); I51.7 Cardiomegaly; K80.50 Calculus of bile duct without cholangitis or cholecystitis without obstruction; R10.9 Unspecified abdominal pain; N18.9 Chronic kidney disease, unspecified; Y92.9 Unspecified place or not applicable; Y93.9 Activity, unspecified; Y99.9 Unspecified external cause status; M85.871 Other specified disorders of bone density and structure, right ankle and foot
CPT/HCPCS: 71046; 73590; 73610; 74176; Q9963

== ENCOUNTER → 2020-02-06 | Outpatient (REF) | payer MEDICARE, MEDICAID ==
[~2020-02-06] MED LIST changes: -GASTROGRAFIN SOLUTION 30ML (Q9963) As Ordered ONE
--- NOTE | 2020-02-27 09:11 | REP ---
RIGHT TIBIA/FIBULA DATE: 02/06/2020 at 09:17 a.m. CLINICAL: Fracture followup. COMPARISON: 12/03/2019. FINDINGS: Current examination demonstrates satisfactory alignment to the proximal tibial and fibular diaphyseal fractures. Small among of suspected callus formation is identified along the cortex of the tibial fracture suggesting healing. The remainder of the examination is relatively stable including generalized osteopenia and evidence for prior knee replacement and posterior fixation for distal tibia and fibula fractures. IMPRESSION: Subacute fractures of the proximal tibial and fibular shafts with callus formation suggesting early healing. MTDD
== END ==
LOC: M RAD 08:44
PROVIDERS: ATTEND Internal Medicine
DX: S82.201D Unspecified fracture of shaft of right tibia, subsequent encounter for closed fracture with routine healing (principal); S82.401D Unspecified fracture of shaft of right fibula, subsequent encounter for closed fracture with routine healing; X58.XXXD Exposure to other specified factors, subsequent encounter

== ENCOUNTER → 2020-02-26 | Outpatient (REF) | payer MEDICARE, MEDICAID ==
[2020-02-26 10:34] LABS: HEMATOCRIT 33.9 % (36.0-47.0); HEMOGLOBIN 10.5 g/dl (12.0-15.5); MEAN CORPUSCULAR HEMOGLOBIN 30.3 pg (27.0-33.0); PLATELET COUNT, AUTOMATED 148 10^3/uL (150-450); RED BLOOD COUNT 3.46 10^6/uL (4.00-5.40); WHITE BLOOD COUNT 4.1 10^3/uL (4.0-10.0)
== END ==
PROVIDERS: ATTEND Internal Medicine
DX: R11.0 Nausea (principal)

== ENCOUNTER → 2020-03-17 | Outpatient (CLI) | payer MEDICARE, MEDICAID ==
--- NOTE | 2020-03-17 13:20 | REP ---
INDICATION: LT ABDOMINAL PAIN H/O RENAL MASS COMPARISON: 02/27/2017 TECHNIQUE: Real time de los santos scale ultrasound examination using curved array transducer. FINDINGS: Examination is limited due to poor sonographic window. The kidneys appear relatively atrophic and demonstrate increased parenchymal echotexture with innumerable scattered cysts consistent with chronic medical renal disease and polycystic kidney syndrome. No obvious hydronephrosis. Right kidney measures 10.5 x 3.6 x 3.3 cm and includes multiple cysts-largest of which is noted at the lower pole, simple and measures 4.6 cm maximal diameter. Left kidney measures 12.3 x 6.9 x 6.5 cm and includes multiple cysts-largest of which is noted at the upper pole, incompletely evaluated and measures roughly 6.8 cm maximal diameter. IMPRESSION: 1. Limited examination demonstrates chronic medical renal disease and polycystic kidney syndrome with simple and complex cysts. 2. No obvious hydronephrosis. <Electronically signed by Skip Preston > 03/17/20 [id number]
== END ==
LOC: M RAD 12:30
PROVIDERS: ATTEND Physician Assistant
DX: R10.9 Unspecified abdominal pain (principal); N18.9 Chronic kidney disease, unspecified; Q61.3 Polycystic kidney, unspecified

== ENCOUNTER → 2020-03-30 | Outpatient (CLI) | payer MEDICARE, MEDICAID ==
--- NOTE | 2020-03-30 14:41 | REP ---
INDICATION: LT SIDED BACK PAIN. COMPARISON: Comparison MRI study January 24, 2017. TECHNIQUE: Sagittal and axial T1 and T2-weighted scans are acquired in the usual fashion with and without fat saturation. Sequences include spin echo, turbo spin-echo, and STIR imaging sequences. FINDINGS: Lumbar vertebral body heights are preserved. There is no evidence of spondylolysis but there is a grade 1 L3-4 spondylolisthesis again noted measuring 5 mm. The L4-5 disc is quite narrowed with reactive marrow changes on either side of it. There is a grade 1 L4-5 spondylolisthesis is also noted 5 mm in diameter. These are unchanged. Alignment is otherwise normal. There is diffuse degenerative disc disease. Multiple cysts are noted in the kidneys bilaterally. There is a suggestion of renal cortical atrophy. They are incompletely included in the imaging field of view. The tip of the conus medullaris is normal in position and appearance at T12-L1. The T12-L1 and the L1-L2 disc spaces are unremarkable. At L2, there is mild diffuse disc bulging. No spinal stenosis or focal disc protrusion is seen. Minimal facet hypertrophy is present. At L3-4, in addition to the 5 mm degenerative spondylolisthesis, there is central canal stenosis. Ligamentum flavum and facet hypertrophy contribute to this along with diffuse disc bulging. There is bilateral neural foraminal narrowing due to disc bulging and the spondylolisthesis. The thecal sac at L3-4 measures 7.9 mm in AP dimension in the midline. These changes at L3-4 are felt to be stable. At L4-5, there are similar changes of moderate central canal stenosis due to diffuse disc bulging, posterior osteophytic ridging, ligamentum flavum and facet hypertrophy, and developmentally somewhat short pedicles. There is mild left-sided foraminal narrowing at L4-5. These findings are unchanged. Thecal sac at L4-5 measures 9 mm in AP dimension. At L5-S1, there is mild diffuse disc bulging. Bilateral facet hypertrophy is present. No thecal sac compression or foraminal narrowing is seen. IMPRESSION: Degenerative spondylosis changes generally stable from the January 24, 2017 study. There is degenerative grade 1 5 mm spondylolisthesis at L3-4 and L4-5. Central canal stenosis is noted at these 2 levels. Multilevel neural foraminal narrowing is again seen. No new disc protrusion. <Electronically signed by Jose Donahue > 03/30/20 [id number]
--- NOTE | 2020-03-30 14:41 | REP ---
INDICATION: LT SIDED BACK PAIN. COMPARISON: Comparison thoracic spine MRI study is from October 10, 2014. TECHNIQUE: Sagittal and axial T1 and T2-weighted scans are acquired in the usual fashion with and without fat saturation. Sequences include spin echo, turbo spin-echo, and STIR imaging sequences. FINDINGS: There is increase in the interval in the degree of thoracic kyphosis. However, no interval thoracic vertebral fracture or collapse is seen. There is mild degenerative disc disease. Thoracic cord is normal in course, caliber and signal intensity. No cord compressive lesion is seen. There is mild motion on sharpness on today's study. There is a left paracentral focal disc protrusion at T7-T8. This effaces the left ventral lateral margin of the cord. No spinal stenosis is seen. This disc protrusion is a little larger and more focal and the cord flattening a little more pronounced than on the comparison study 2014. No other thoracic disc protrusion is seen. No neural foraminal lesion is seen. No cord compressive lesion is seen. IMPRESSION: Increased thoracic kyphosis in the interval since the 2014 study. There is a left paracentral focal disc protrusion at T7-T8 which is larger than on 2015 prior study. No other thoracic disc protrusion. <Electronically signed by Jose Donahue > 03/30/20 [id number]
== END ==
LOC: M RAD 09:32
PROVIDERS: ATTEND Physician Assistant
DX: M54.5 Low back pain (principal)

== ENCOUNTER → 2020-04-01 | Outpatient (REF) | payer MEDICARE, MEDICAID | PROVIDERS: ATTEND Physician Assistant | DX: D64.9 Anemia, unspecified (principal) ==

== ENCOUNTER 2020-04-02 09:29 | Outpatient (CLI) | payer MEDICARE, MEDICAID ==
[~2020-04-02] VITALS: Ht 152.4 cm; Wt 81.8 kg
[2020-04-02 10:02] VITALS: BP 90/64
[2020-04-02 10:20] VITALS: BP 96/62
[2020-04-02 11:41] VITALS: BP 119/65
[2020-04-02 12:05] VITALS: BP 109/59
[2020-04-02 13:30] VITALS: BP 127/72
== END 2020-04-02 13:40 | disposition home or self-care (01) ==
LOC: M INFU 09:29
PROVIDERS: ATTEND Internal Medicine Nephrology
DX: D64.9 Anemia, unspecified (principal); Z91.018 Allergy to other foods
CPT/HCPCS: 36430; P9016

== ENCOUNTER → 2020-04-10 | Outpatient (REF) | PROVIDERS: ATTEND Internal Medicine | DX: Z20.828 Contact with and (suspected) exposure to other viral communicable diseases (principal) ==

== ENCOUNTER → 2020-04-16 | Outpatient (REF) | payer MEDICARE, MEDICAID ==
[~2020-04-16] MED LIST changes: +ACET-907 PO; +ASPE16CR TOP; +ATIV1TAB10 PO; +BENE1POW5 PO; +DULO1CAP5 PO; +DULO60CA35 PO; +FAMO20TA5 PO; +HYOS125TA PO; +LORA-622 PO; +MAGNILIFE TOP; +MORP20SO3 PO; +OMEP-221 PO; +TIZA1TAB12 PO
== END ==
LOC: EDSTATUS 05-26 12:02
PROVIDERS: ATTEND Internal Medicine
DX: Z20.828 Contact with and (suspected) exposure to other viral communicable diseases (principal)

== ENCOUNTER → 2020-04-21 | Outpatient (REF) | payer MEDICARE, MEDICAID ==
[~2020-04-21] MED LIST changes: -ACET-907 PO; -ASPE16CR TOP; -ATIV1TAB10 PO; -BENE1POW5 PO; -DULO1CAP5 PO; -DULO60CA35 PO; -FAMO20TA5 PO; -HYOS125TA PO; -LORA-622 PO; -MAGNILIFE TOP; -MORP20SO3 PO; -OMEP-221 PO; -TIZA1TAB12 PO
== END ==
PROVIDERS: ATTEND Physician Assistant
DX: D64.9 Anemia, unspecified (principal)

== ENCOUNTER 2020-04-22 11:26 | Outpatient (CLI) | payer MEDICARE, MEDICAID ==
[~2020-04-22] VITALS: Ht 152.4 cm; Wt 81.8 kg
[2020-04-22] VITALS (8 sets, daily range): BP systolic 123–157; BP diastolic 72–86
[~2020-04-22 11:26] MED LIST changes: -ACET-907 PO; -ASPE16CR TOP; -ATIV1TAB10 PO; -BENE1POW5 PO; -DULO1CAP5 PO; -DULO60CA35 PO; -FAMO20TA5 PO; -HYOS125TA PO; -LORA-622 PO; -MAGNILIFE TOP; -MORP20SO3 PO; -OMEP-221 PO; -TIZA1TAB12 PO
== END 2020-04-22 17:22 ==
LOC: M INFU 11:26
PROVIDERS: ATTEND Internal Medicine Nephrology
DX: D64.9 Anemia, unspecified (principal)
CPT/HCPCS: 36430; P9016

== ENCOUNTER → 2020-04-22 | Outpatient (REF) | payer MEDICARE, MEDICAID ==
[~2020-04-22] MED LIST changes: +ACET-907 PO; +ASPE16CR TOP; +ATIV1TAB10 PO; +BENE1POW5 PO; +DULO1CAP5 PO; +DULO60CA35 PO; +FAMO20TA5 PO; +HYOS125TA PO; +LORA-622 PO; +MAGNILIFE TOP; +MORP20SO3 PO; +OMEP-221 PO; +TIZA1TAB12 PO
== END ==
PROVIDERS: ATTEND Internal Medicine
DX: Z20.828 Contact with and (suspected) exposure to other viral communicable diseases (principal)

== ENCOUNTER → 2020-04-29 | Outpatient (REF) | payer MEDICARE, MEDICAID ==
[2020-04-29 11:42] LABS: HEMATOCRIT 37.8 % (36.0-47.0); HEMOGLOBIN 12.2 g/dl (12.0-15.5); MEAN CORPUSCULAR HEMOGLOBIN 29.3 pg (27.0-33.0); MEAN CORPUSCULAR HGB CONC 32.3 g/dl (32.0-36.5); MEAN CORPUSCULAR VOLUME 90.9 fl (80.0-96.0); PLATELET COUNT, AUTOMATED 132 10^3/uL (150-450); RED BLOOD COUNT 4.16 10^6/uL (4.00-5.40); WHITE BLOOD COUNT 5.1 10^3/uL (4.0-10.0)
[2020-04-29 12:35] LABS: FERRITIN 1615 NG/ML (8-252); FOLATE > 24.0 NG/ML (>5.4); IRON (FE) 109 UG/DL (50-170); PERCENT SATURATION 90.8 % (13.2-45.0); TOTAL IRON BINDING CAPACITY 120 UG/DL (250-450); TOTAL PROTEIN 5.1 GM/DL (6.4-8.2); VITAMIN B12 LEVEL 1491 PG/ML (247-911)
[2020-04-30 11:50] LABS: ALPHA-1-GLOBULIN % 6.6 % (2.9-4.9); ALPHA-1-GLOBULINS 0.34 GM/DL (0.17-0.41); ALPHA-2-GLOBULINS % 13.8 % (7.1-11.8); BETA-1-GLOBULINS % 5.8 % (4.7-7.2); BETA-2-GLOBULINS 0.27 GM/DL (0.19-0.55); BETA-2-GLOBULINS % 5.2 % (3.2-6.5)
[2020-04-30 11:51] LABS: GAMMA GLOBULIN % 15.6 % (11.1-18.8)
== END ==
PROVIDERS: ATTEND Internal Medicine
DX: D64.9 Anemia, unspecified (principal)

== ENCOUNTER → 2020-04-30 | Outpatient (REF) | payer MEDICARE, MEDICAID | PROVIDERS: ATTEND Internal Medicine | DX: D64.9 Anemia, unspecified (principal) ==

== ENCOUNTER → 2020-05-01 | Outpatient (REF) | payer MEDICARE, MEDICAID | PROVIDERS: ATTEND Internal Medicine | DX: K92.2 Gastrointestinal hemorrhage, unspecified (principal) ==

== ENCOUNTER → 2020-05-02 | Outpatient (REF) | payer MEDICARE, MEDICAID | PROVIDERS: ATTEND Internal Medicine | DX: D50.9 Iron deficiency anemia, unspecified (principal); R42 Dizziness and giddiness ==

== ENCOUNTER → 2020-05-10 | Outpatient (REF) ==
[~2020-05-10] MED LIST changes: +ACET-907 PO; +ASPE16CR TOP; +BENE1POW5 PO; +DULO1CAP5 PO; +DULO60CA35 PO; +FAMO20TA5 PO; +LORA-622 PO; +MAGNILIFE TOP; +OMEP-221 PO; +TIZA2TAB6 PO
== END ==
PROVIDERS: ATTEND Internal Medicine
DX: Z20.828 Contact with and (suspected) exposure to other viral communicable diseases (principal)

== ENCOUNTER 2020-05-13 16:55 | Inpatient (IN) | payer MEDICARE, MEDICAID ==
[~2020-05-13] VITALS: Ht 152.4 cm; Wt 80.1 kg
[~2020-05-13 16:55] MED LIST changes: -ACET-907 PO; -ASPE16CR TOP; -BENE1POW5 PO; -DULO1CAP5 PO; -DULO60CA35 PO; -FAMO20TA5 PO; -LORA-622 PO; -MAGNILIFE TOP; -OMEP-221 PO; -TIZA2TAB6 PO
--- NOTE | 2020-05-13 17:38 | REP ---
INDICATION: CHEST PAIN. COMPARISON: 12/03/2019. TECHNIQUE: Single frontal portable view of the chest are performed. FINDINGS: Cardiomegaly is again noted. There is chronic vascular congestion and chronic increased interstitial markings appearing similar to prior studies. No consolidating infiltrate is seen. There is chronic blunting of the costophrenic angles unchanged. There is no change in the mediastinal silhouette. IMPRESSION: Stable cardiomegaly, chronic vascular congestion and increased interstitial markings. <Electronically signed by Supa Cadena > 05/13/20 [id number]
[2020-05-13] MEDS ORDERED: METOPROLOL 5 MG/5 ML VIAL IV SCH (18:00)
[2020-05-13] MEDS ORDERED: METOPROLOL TART 50 MG TAB PO ONE (18:00)
[2020-05-13 18:33] LABS: INR 1.19; PROTHROMBIN TIME 15.4 SECONDS (12.5-14.3)
[2020-05-13 18:48] LABS: BASO % 0.3 % (0.0-1.0); EOS % 0.1 % (0.0-3.0); HEMATOCRIT 30.5 % (36.0-47.0); HEMOGLOBIN 11.2 g/dl (12.0-15.5); LYMPH # 0.7 10^3/uL (1.5-5.0); LYMPH % 9.2 % (24.0-44.0); MEAN CORPUSCULAR HEMOGLOBIN 29.6 pg (27.0-33.0); MEAN CORPUSCULAR HGB CONC 36.7 g/dl (32.0-36.5); MEAN CORPUSCULAR VOLUME 80.5 fl (80.0-96.0); MONO # 0.9 10^3/uL (0.0-0.8); MONO % 11.8 % (0.0-5.0); NEUTROPHILS # 6.2 10^3/uL (1.5-8.5); NEUTROPHILS % 78.1 % (36.0-66.0); PLATELET COUNT, AUTOMATED 244 10^3/uL (150-450); RED BLOOD COUNT 3.79 10^6/uL (4.00-5.40); WHITE BLOOD COUNT 7.9 10^3/uL (4.0-10.0)
[2020-05-13 21:18] LABS: ALBUMIN 1.9 GM/DL (3.2-5.2); BILIRUBIN,DIRECT 0.9 MG/DL (0.0-0.2); BILIRUBIN,TOTAL 1.4 MG/DL (0.2-1.0); CALCIUM LEVEL 8.5 MG/DL (8.8-10.2); CK-MB VALUE MASS 2.2 NG/ML (<3.6); CREATININE FOR GFR 1.54 MG/DL (0.55-1.30); FREE T4 0.76 NG/DL (0.76-1.46); GLOMERULAR FILTRATION RATE 35.6 (>45); MB/CK RELATIVE INDEX 7.86 (< OR =4); POTASSIUM SERUM 2.5 MEQ/L (3.5-5.1); THYROID STIMULATING HORMONE 1.29 uIU/ML (0.358-3.740); TOTAL PROTEIN 4.9 GM/DL (6.4-8.2); TROPONIN I 0.05 NG/ML (< 0.10)
[2020-05-13] MEDS ORDERED: KCL 10MEQ/100ML SWI (KRUN) 10 MEQ in IV 1 EA IV ONE (21:30)
[2020-05-13] MEDS ORDERED: POTASSIUM CHLORIDE 10 MEQ SR TABLET PO ONE ×2 (21:30→22:15)
[2020-05-13] MEDS ORDERED: MAALOX 30 ML SUSP *UDC PO PRN (22:15)
[2020-05-13] MEDS ORDERED: ACETAMINOPHEN TAB 650MG DOSE (2X325MG) PO PRN ×2 (22:15→23:00)
[2020-05-13] MEDS ORDERED: MOM 30ML SUSPENSION UDC PO PRN (22:15)
[2020-05-13] MEDS ORDERED: DIGOXIN INJ 0.5 MG/2 ML AMP (J1160) IV ONE (22:30)
[2020-05-13 22:36] LABS: RSV AMPLIFICATION NEGATIVE (NEGATIVE)
[2020-05-13 22:42] LABS: MAGNESIUM LEVEL 1.8 MG/DL (1.8-2.4); PHOSPHORUS LEVEL 0.8 MG/DL (2.5-4.9)
[2020-05-13] MEDS ORDERED: FAMO20TA5 PO (22:43)
[2020-05-13] MEDS ORDERED: OMEP-221 PO (22:43)
[2020-05-13] MEDS ORDERED: VITA1CAP25 PO (22:43)
[2020-05-13] MEDS ORDERED: TIZA2TAB6 PO (22:43)
[2020-05-13] MEDS ORDERED: MAGNILIFE TOP (22:43)
[2020-05-13] MEDS ORDERED: BENE1POW5 PO (22:43)
[2020-05-13] MEDS ORDERED: DULO1CAP5 PO (22:43)
[2020-05-13] MEDS ORDERED: ASPE16CR TOP (22:43)
[2020-05-13] MEDS ORDERED: LORA-622 PO (22:43)
[2020-05-13] MEDS ORDERED: DULO60CA35 PO (22:43)
[2020-05-13] MEDS ORDERED: ACET-907 PO ×2 (22:43)
[2020-05-13] MEDS ORDERED: POLYVINYL ALCOHOL OPHTH SOLN 15 ML(LIQUITEARS) OU SCH (23:00)
[2020-05-13] MEDS ORDERED: BISACODYL 10 MG SUPP PR PRN (23:00)
[2020-05-13] MEDS ORDERED: MIRTAZAPINE 7.5MG PER 1/2 TABLET PO SCH (23:00)
[2020-05-13] MEDS ORDERED: ONDANSETRON 4 MG TAB PO PRN (23:00)
[2020-05-13] MEDS: OMEPRAZOLE 20 MG CAP PO SCH (23:00)
[2020-05-13] MEDS ORDERED: PILL CUTTER 1 EACH XX PRN (23:30)
[2020-05-14] VITALS (16 sets, daily range): BP systolic 80–113; BP diastolic 40–73
[2020-05-14] MEDS ORDERED: METOPROLOL TART 50 MG TAB PO SCH
[2020-05-14] MEDS: APIXABAN 2.5 MG TAB (ELIQUIS) PO SCH ×3 (01:51→16:37)
[2020-05-14] MEDS: tiZANidine 4 MG TAB PO SCH ×3 (01:51→16:37)
[2020-05-14] MEDS: SENOKOT S TAB PO SCH ×2 (01:51→10:09)
[2020-05-14] MEDS: PERCOCET 5MG/325MG TAB PO SCH ×3 (01:53→16:38)
[2020-05-14] MEDS ORDERED: DIGOXIN INJ 0.5 MG/2 ML AMP (J1160) IV STA (03:29)
[2020-05-14] MEDS ORDERED: NS 250 ML IV ONE (03:30)
--- NOTE | 2020-05-14 03:30 | HPEPDOC ---
[facility] Medical History & Physical Date of Admission May 13, 2020 Date of Service: May 13, 2020 Primary Care Physician: Melvin Begum MD Attending Physician: TERE PUENTE MD History and Physical TIME OF SERVICE: 11:55 PM CHIEF COMPLAINT: Hypotension HISTORY OF PRESENT ILLNESS: This 69-year-old female was sent from dialysis today for evaluation of hypotension. During dialysis, her systolic blood pressure was noted to be in the 60s and 70s and she was tachycardic, therefore dialysis was stopped early. On arrival in the ER, she was found to be in rapid A. fib with a rate of 114 and was found to have a K of 2.5. She was subsequently given 50 mg of metoprolol tartrate along with, 10meq of KCl but continue to be in rapid A fib. At the time of my evaluation, the patient denied having any chest pain, shortness of breath, dizziness, or any other acute complaints. Her main concerns at the time, were of lower extremity swelling. 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 HOME MEDICATIONS: Please see below. PHYSICAL EXAMINATION: Vital Signs Date Time Temp Pulse Resp B/P (MAP) Pulse Ox O2 Delivery O2 Flow Rate FiO2 05/13/20 17:08 116/68 (84) 05/13/20 17:10 98.4 167 20 100 Room Air GEN: obese/ well developed/ NAD INTEGUMENT: not flushed/ not jaundice HEENT: lips acyanotic /mucus membranes moist and pink CVS: RRR/NMRG LUNGS: able to speak full sentences without stopping to take a breath / no coughing / lungs are clear to auscultation bilaterally on room air ABDOMEN: Contour ( obese) MSK/EXTREMITIES: NCAT / unable to move legs NEURO: CN 2-12 are grossly intact / speech is not dysarthric PSYCH: alert and oriented to person/ able to understand and follow all commands LABORATORY DATA: 05/13/20 17:16 05/13/20 17:16: Immature Granulocyte % (Auto) 0.5, Neutrophils (%) (Auto) 78.1H, Lymphocytes (%) (Auto) 9.2L, Monocytes (%) (Auto) 11.8H, Eosinophils (%) (Auto) 0.1, Basophils (%) (Auto) 0.3, Neutrophils # (Auto) 6.2, Lymphocytes # (Auto) 0.7L, Monocytes # (Auto) 0.9H, Eosinophils # (Auto) 0.0, Basophils # (Auto) 0.0, Nucleated Red Blood Cells % (auto) 0.0, Prothrombin Time 15.4H, Prothromb Time International Ratio 1.19 05/13/20 20:17: Anion Gap 8, Glomerular Filtration Rate 35.6L, Calcium Level 8.5L, Phosphorus Level 0.8L, Magnesium Level 1.8, Total Bilirubin 1.4H, Direct Bilirubin 0.9H, Aspartate Amino Transf (AST/SGOT) 24, Alanine Aminotransferase (ALT/SGPT) 21, Alkaline Phosphatase 192H, Total Creatine Kinase 28, Creatine Kinase MB 2.2, Creatine Kinase MB Relative Index 7.86H, Troponin I 0.05, ZM-Cvk-O-Type Natriuretic Peptide 76447X, Total Protein 4.9L, Albumin 1.9L, Albumin/Globulin Ratio 0.6L, Lipase 52L, Thyroid Stimulating Hormone (TSH) 1.290, Free Thyroxine 0.76 05/13/20 21:47: Coronavirus (COVID-19)(PCR) NEGATIVE, Influenza Type A (RT-PCR) NEGATIVE, Influenza Type B (RT-PCR) NEGATIVE, Respiratory Syncytial Virus (PCR) NEGATIVE 05/14/20 00:23: Troponin I 0.05, Lactic Acid Level 0.8 IMAGING: Chest xray "Impression: Stable cardiomegaly, chronic vascular congestion and increased interstitial markings." MICROBIOLOGY: COVID 19 neg / blood cx pending... ASSESSMENT: Ms. Hua is a 69-year-old with history of ESRD, with multiple complications, A. fib, HTN, HFpEF, pulmonary hypertension, and debility who was sent from dialysis for evaluation of hypotension and tachycardia and will be admitted for management of hypotension of unclear cause, rapid A. fib, and hypokalemia. PLAN: 1. Hypotension At her baseline she is hypertensive Cause TBD She does not have SIRS criteria, her respiratory panel, chest x-ray, lactic acid were unrevealing and her EKG did not show findings consistent with an inferior MS. Plan: Admit to PCU/ give only 750ml of IVF fluids, if we are unable to keep her MAP >65 will have to start Levophed /follow-up blood cultures and a.m. cortisol / dc metoprolol succinate 2. Long-standing persistent A. fib with RVR It is likely that the hypokalemia precipitated this episode of RVR. Plan: telemetry / per discussion with Dr. Rosas will start digoxin 0.125m IV For RVR because she is hypotensive; he recommended continuing 0.125 mg by mouth 3 times a week / per AHA/ACC/HRS AF 2014 guidelines will aim for target HR<80 BPM while she is at rest / continue with Eliquis 3. Fluid overload Likely 2/2 incomplete dialysis She is c/o BLE edema Plan: consult Nephro for dialysis 4. Hypokalemia Plan: replace K conservatively because she also has renal insufficiency, didn't complete dialysis and is at risk of developing hyperkalemia if we over correct / f/u Mag 5. ESRD with anemia of chronic disease, secondary hyperparathyroidism and renal osteodystrophy/osteoporosis Plan: renal diet / Nephrology consult for dialysis 6. Partially decompensated HFpEF (EF of 50%) Plan: dialysis / she is not a candidate for high dose Lasix right now bc of her BP 7. Class 1 Obesity with BMI of 33.8 / Debility/bedbound status Complicates care Plan: she will likely need at least 2 person assistance for transfers DVT PROPHYLAXIS: n/a on NOAC DISPOSITION: home after more than 2 midnight's stay Home Medications Scheduled Acetaminophen (Tylenol) 325 Mg Tablet, 650 MG PO BID Apixaban (Eliquis) 2.5 Mg Tablet, 2.5 MG PO BID 0800, 1600 Aspirin (Aspirin EC) 81 Mg Tabec, 81 MG PO DAILY Cholecalciferol (Vitamin D3) (Vitamin D3) 1,250 Mcg Capsule, 1,250 MCG PO QWEEK EVERY MONDAY MORNING Duloxetine HCl (Duloxetine HCl) 60 Mg Capsule.dr, 60 MG PO 2XWK MONDAY AND MONDAY Duloxetine Hcl (Duloxetine HCl) 30 Mg Capsule.dr, 30 MG PO 5XW MONDAY, MONDAY, MONDAY, MONDAY AND MONDAY Famotidine (Famotidine) 20 Mg Tablet, 20 MG PO DAILY Lidocaine HCl (Aspercreme) 4% Cream..g., 1 DOSE TOP TID 1000, 1600, 2200; APPLY SMALL AMOUNT TO NECK AND SHOULDER FOR PAIN Loratadine (Loratadine) 10 Mg Tablet, 10 MG PO DAILY Metoprolol Succinate (Metoprolol Succinate) 25 Mg Tab.er.24h, 25 MG PO 4XWK MONDAY, MONDAY, MONDAY, MONDAY AT 0800; HOLD IF SBP<100 OR HR<60 Mirtazapine (Mirtazapine) 7.5 Mg Tab, 7.5 MG PO QHS Omeprazole (Omeprazole) 40 Mg Capsule.dr, 40 MG PO BID STARTED 04/28/2020 Oxycodone HCl/Acetaminophen (Percocet 5-325 mg Tablet) 1 Tab Tab, 1 TAB PO Q8H 0000, 0800, 1600 Polyvinyl Alcohol (Artificial Tears) 15 Ml Drops, 1 DROP OU QHS Sennosides/Docusate Sodium (Senokot-S Tablet) 1 Tab Tab, 2 TAB PO BID Sodium Chloride ([place]) 2.65% [place], 1 SPRAY NA BID Vit B Comp No.3/Folic/C/Biotin (Nephro-Jake Rx Tablet) 1 Each Tablet, 1 TAB PO DAILY Wheat Dextrin (Benefiber) 1 Each Powd.pack, 1 DOSE PO QHS MIX IN 4 TO 6 OZ OF FLUID Scheduled PRN Acetaminophen (Tylenol) 325 Mg Tablet, 650 MG PO Q4H PRN for PAIN Bisacodyl (Bisacodyl) 10 Mg Sup, 10 MG DC DAILY PRN for CONSTIPATION Ondansetron HCl (Zofran) 4 Mg Tablet, 4 MG PO Q4H PRN for NAUSEA Oxycodone HCl/Acetaminophen (Oxycodone-Acetaminophen 5-325) 1 Tab Tab, 1 TAB PO DAILY PRN for PAIN Sodium Phosphate,[place]-Dibasic (Enema) 133 Ml Enema, 1 AMINA DC DAILY PRN for CONSTIPATION Tizanidine HCl (Tizanidine HCl) 2 Mg Tablet, 2 MG PO TID PRN for MUSCLE SPASMS [Magnilife Cream] , 1 DOSE TOP BID PRN for PAIN APPLY TO BILATERAL FEET NEEDED FOR PAIN Allergies Coded Allergies: Sukh (Verified Allergy, Severe, SUKH SKINS - RASH, THROAT SWELLING, DIFF BREATHING, 11/15/18) A-FIB/CHADSVASC A-FIB History Current/History of A-Fib/PAF?: Yes Current PO Anticoag Therapy: Yes TERE PUENTE MD May 14, 2020 03:30
[2020-05-14] MEDS ORDERED: NS 500 ML IV ONE (05:00)
[2020-05-14] MEDS ORDERED: NOREPINEPHRINE BITARTRATE 8 MG in D5W 500 ML IV SCH (05:00)
[2020-05-14] MEDS ORDERED: METOPROLOL SUCC *XL* 25MG TAB (TopROL *XL*) PO SCH (08:00)
[2020-05-14 08:15] LABS: HEMATOCRIT 28.7 % (36.0-47.0); HEMOGLOBIN 10.6 g/dl (12.0-15.5); MEAN CORPUSCULAR HEMOGLOBIN 30.5 pg (27.0-33.0); MEAN CORPUSCULAR VOLUME 82.5 fl (80.0-96.0); PLATELET COUNT, AUTOMATED 220 10^3/uL (150-450); RED BLOOD COUNT 3.48 10^6/uL (4.00-5.40); WHITE BLOOD COUNT 7.2 10^3/uL (4.0-10.0)
[2020-05-14 08:23] LABS: MEAN CORPUSCULAR HGB CONC 36.9 g/dl (32.0-36.5)
[2020-05-14] MEDS ORDERED: ASPIRIN 81 MG ENTERIC TAB PO SCH (09:00)
[2020-05-14] MEDS ORDERED: NEPHRO-VIT TAB (NEPHROCAPS) PO SCH (09:00)
[2020-05-14] MEDS ORDERED: DULoxetine 30 MG CAP (CYMBALTA) PO SCH (09:00)
[2020-05-14 09:02] LABS: CALCIUM LEVEL 7.8 MG/DL (8.8-10.2); CREATININE FOR GFR 1.78 MG/DL (0.55-1.30); GLOMERULAR FILTRATION RATE 30.1 (>45); MAGNESIUM LEVEL 1.7 MG/DL (1.8-2.4); POTASSIUM SERUM 2.7 MEQ/L (3.5-5.1); TROPONIN I 0.04 NG/ML (< 0.10)
[2020-05-14] MEDS: OMEPRAZOLE 20 MG CAP PO SCH (10:01)
[2020-05-14] MEDS ORDERED: MAGNESIUM OXIDE 400 MG TAB (MAG-OX) PO ONE (11:00)
[2020-05-14] MEDS: KCL 10MEQ/100ML SWI (KRUN) 10 MEQ in IV 1 EA IV SCH ×4 (13:09→16:37)
--- NOTE | 2020-05-14 13:30 | ECGEPIP ---
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
[2020-05-14] MEDS: DIGOXIN 0.25 MG TAB PO SCH (18:12)
[2020-05-14] MEDS ORDERED: ATROPINE SULFATE 1% OP SOLN 2 ML BTL SL PRN (18:30)
[2020-05-14] MEDS ORDERED: SCOPOLAMINE 1MG TRANSDERMAL PATCH TOP PRN (18:30)
--- NOTE | 2020-05-14 18:30 | IPNPDOC ---
Date Seen The patient was seen on 05/14/20. Progress Note SUBJECTIVE: Patient was on peripheral levophed for most of the day, when attempted to be weaned off her systolic would drop to 8060 mmHg. she was given a total of 750 mL of normal saline in the emergency room; however, this did not improve her blood pressure much. It was decided to keep off of IV fluids and only managed with pressor support. Nephrology was consulted and assessed early this morning. Heart rate for uncontrolled and echocardiogram was ordered. Case was discussed with scoop filler, Dr. Greer, suggested oral digoxin to be given every 6 hours 3 doses. The patient began refusing care and begin making comments that she "did not want to do this anymore". She was oriented 3 upon conversation with the nurse when she made this,. I spoke at great detail with both the patient and her healthcare proxy, her sister Raisa. Her sister states that the patient has not been eating well for over a month and has been on the decline for some time. She wanted to honor her sister's wishes and make her comfort measures only. All labs and imaging were stopped. The patient was started on morphine, scopolamine, Ativan when necessary. Hospice consult was placed. OBJECTIVE: PHYSICAL EXAM: VS: Please see below GEN: obese/ well developed/ appears uncomfortable, lethargic INTEGUMENT: not flushed/ not jaundice HEENT: lips acyanotic /mucus membranes moist and pink CVS: RRR/NMRG LUNGS: able to speak full sentences without stopping to take a breath but confused at times / no coughing / crackles in b/l lung bases ABDOMEN: Contour ( obese) MSK/EXTREMITIES: NCAT / unable to move legs NEURO: CN 2-12 are grossly intact / speech is not dysarthric PSYCH: alert and oriented to person, place and time but this waxes and wanes. She understand follow all commands ASSESSMENT: 69 y/o F with PMH of ESRD on HD, HFpEF, atrial fibrillation who was admitted earlier this morning with acute on chronic HFpEF with exacerbation, hypotension r/o cardiac vs. infectious cause, atrial fib with RVR to ICU. Made STOCK MANAGER this evening. LABORATORY: please see below CURRENT DIAGNOSES: Hypotension poss cardiac vs. infectious cause previously on pressor support Atrial fibrillation with RVR Acute on chronic HFpEF with exacerbation ESRD on HD Anemia of chronic disease Secondary hyperparathyroidism Renal osteodystrophy Osteoporosis Obesity DISPOSITION: Made STOCK MANAGER after discussion with patient and patient's family. Hospice consulted VS, I&O, 24H, Pablo Vital Signs/I&O Vital Signs Date Time Temp Pulse Resp B/P (MAP) Pulse Ox O2 Delivery O2 Flow Rate FiO2 05/14/20 17:46 127 86/53 (64) 97 05/14/20 17:08 18 05/14/20 16:38 Room Air 05/14/20 15:50 98.0 05/14/20 06:38 4.0 I&O- Last 24 Hours up to 6 AM 05/14/20 06:00 Intake Total 650 ml Balance 650 ml Laboratory Data 24H LABS Laboratory Tests 2 05/13/20 20:17: Anion Gap 8, Glomerular Filtration Rate 35.6L, Calcium Level 8.5L, Phosphorus Level 0.8L, Magnesium Level 1.8, Total Bilirubin 1.4H, Direct Bilirubin 0.9H, Aspartate Amino Transf (AST/SGOT) 24, Alanine Aminotransferase (ALT/SGPT) 21, Alkaline Phosphatase 192H, Total Creatine Kinase 28, Creatine Kinase MB 2.2, Creatine Kinase MB Relative Index 7.86H, Troponin I 0.05, QM-Ldb-B-Type Natriuretic Peptide [id number], Total Protein 4.9L, Albumin 1.9L, Albumin/Globulin Ratio 0.6L, Lipase 52L, Thyroid Stimulating Hormone (TSH) 1.290, Free Thyroxine 0.76 05/13/20 21:47: Coronavirus (COVID-19)(PCR) NEGATIVE, Influenza Type A (RT-PCR) NEGATIVE, Influenza Type B (RT-PCR) NEGATIVE, Respiratory Syncytial Virus (PCR) NEGATIVE 05/14/20 00:23: Troponin I 0.05, Lactic Acid Level 0.8 05/14/20 07:50: Anion Gap 11, Glomerular Filtration Rate 30.1L, Calcium Level 7.8L, Magnesium Level 1.7L, Troponin I 0.04, Nucleated Red Blood Cells % (auto) 0.0, Cortisol AM Sample 19.2 CBC/BMP Laboratory Tests 05/13/20 20:17 05/14/20 07:50 Microbiology Microbiology 05/14/20 Blood Culture, Received Pending 05/14/20 Blood Culture, Received Pending Sharron Franklin MD May 14, 2020 18:30
[2020-05-14] MEDS ORDERED: LORazepam 2 MG/ML VIAL IV PRN (19:00)
--- NOTE | 2020-05-14 19:30 | CCN ---
CRITICAL CARE NOTE DATE: 05/14/2020 I was called urgently to the bedside for hypotension for central line placement. The patient was in AFib with RVR when titrating down on the Levophed. When the Levophed was off, her systolic blood pressure was 113. However, shortly after that, systolic blood pressure went down to 70s systolic. This was rechecked and confirmed. I had a conversation with the patient and she refused central line placement. There was some question about her ability to make her own decisions; however, she is a DNR/DNI. The primary physician, Dr. Franklin, consulted with her health care proxy and she agrees that the patient would not want central line and would not want invasive measures and therefore, the patient was made CHANGE MANAGEMENT EXPERT by Dr. Franklin. I spent 25 minutes in consultation discussing vasopressor therapy and talking to the patient and arranging care for this patient.
[2020-05-14] MEDS: MORPHINE 10MG/0.5ML ORAL CONCENTRATE SOLUTION U/D SL PRN (20:54)
[2020-05-15] MEDS: DIGOXIN 0.25 MG TAB PO SCH ×2 (05:44)
[2020-05-15] MEDS ORDERED: DULoxetine 30 MG CAP (CYMBALTA) PO SCH (09:00)
[2020-05-15] MEDS ORDERED: VITAMIN D 50,000 UNITS CAPSULE (ERGOCALCIFEROL 1.25MG) PO SCH (09:00)
[2020-05-15] MEDS: MORPHINE 10MG/0.5ML ORAL CONCENTRATE SOLUTION U/D SL PRN ×3 (10:29→21:02)
[2020-05-15] MEDS ORDERED: LORazepam 2 MG/ML VIAL As Ordered ONE (11:21)
--- NOTE | 2020-05-15 14:36 | IPNPDOC ---
Date Seen The patient was seen on 05/15/20. Progress Note SUBJECTIVE: Home hospice consulted. Patient admits to wanting pain medications due to back pain. Resting comfortably. OBJECTIVE: PHYSICAL EXAM: VS: Please see below GEN: obese/ well developed, lethargic INTEGUMENT: not flushed/ not jaundice HEENT: lips acyanotic /mucus membranes moist and pink CVS: RRR/NMRG LUNGS: able to speak full sentences without stopping to take a breath but confused at times / no coughing / crackles in b/l lung bases ABDOMEN: Contour ( obese) MSK/EXTREMITIES: NCAT / unable to move legs NEURO: CN 2-12 are grossly intact / speech is not dysarthric. lethargic but oriented to person, place and time. ASSESSMENT: 69 y/o F with PMH of ESRD on HD, HFpEF, atrial fibrillation who was admitted earlier this morning with acute on chronic HFpEF with exacerbation, hypotension r/o cardiac vs. infectious cause, atrial fib with RVR to ICU. UTILIZATION MANAGEMENT RN LABORATORY: please see below CURRENT DIAGNOSES: Hypotension poss cardiac vs. infectious cause previously on pressor support Atrial fibrillation with RVR Acute on chronic HFpEF with exacerbation ESRD on HD Anemia of chronic disease Secondary hyperparathyroidism Renal osteodystrophy Osteoporosis Obesity DISPOSITION: UTILIZATION MANAGEMENT RN. Hoping for Hospice House. From [facility]. VS, I&O, 24H, Fishbone Vital Signs/I&O Vital Signs Date Time Temp Pulse Resp B/P (MAP) Pulse Ox O2 Delivery O2 Flow Rate FiO2 05/14/20 18:12 121 05/14/20 17:46 86/53 (64) 97 05/14/20 17:08 18 05/14/20 16:38 Room Air 05/14/20 15:50 98.0 05/14/20 06:38 4.0 I&O- Last 24 Hours up to 6 AM 05/15/20 06:00 Intake Total 900 ml Output Total 0 ml Balance 900 ml Laboratory Data Microbiology Microbiology 05/14/20 Blood Culture - Preliminary, Resulted No growth after 24 hours . All specim... 05/14/20 Blood Culture - Preliminary, Resulted No growth after 24 hours . All specim... Current Medications Current Medications Medications (Trade) Dose Ordered Sig/Tai Route PRN Reason Start Time Stop Time Status Last Admin Dose Admin Acetaminophen (Tylenol Tab) 650 mg Q4H PRN PO PAIN OR FEVER 05/13/20 22:15 05/14/20 18:24 DC Acetaminophen (Tylenol Tab) 650 mg Q4HP PRN PO PAIN 05/13/20 23:00 05/13/20 23:19 DC Al Hydrox/Mg Hydrox/Simethicone (Mylanta) 30 ml DAILY PRN PO DYSPEPSIA 05/13/20 22:15 05/14/20 18:24 DC Apixaban (Eliquis) 2.5 mg BID@0800,1600 PO 05/13/20 23:00 05/14/20 18:24 DC 05/14/20 16:37 Artificial Tears (Akwa Tears) 1 drop QHS OU 05/13/20 23:00 05/14/20 18:24 DC Aspirin (Ecotrin) 81 mg DAILY PO 05/14/20 09:00 05/14/20 18:24 DC 05/14/20 10:03 Atropine Sulfate (Isopto Atropine 1%) 1 drop Q2HP PRN SL TERMINAL SECRETIONS 05/14/20 18:30 Bisacodyl (Dulcolax Suppository) 10 mg DAILY PRN MD CONSTIPATION 05/13/20 23:00 05/14/20 18:24 DC Digoxin (Lanoxin) 0.125 mg STAT STAT IV 05/14/20 03:29 05/14/20 03:38 DC 05/14/20 05:12 Digoxin (Lanoxin) 0.25 mg Q6H PO 05/14/20 18:00 05/15/20 06:01 DC 05/14/20 18:12 Duloxetine HCl (Cymbalta) 30 mg SuTuThSa@0900 PO 05/14/20 09:00 05/14/20 18:24 DC 05/14/20 10:03 Duloxetine HCl (Cymbalta) 60 mg MoFr@0900 PO 05/15/20 09:00 05/14/20 18:24 DC Home Med (Med Rec Complete!) ASDIRECTED XX 05/13/20 22:45 05/13/20 22:45 DC Lorazepam (Ativan) 1 mg Q2HP PRN IV ANXIETY 05/14/20 19:00 05/15/20 11:26 Magnesium Hydroxide (Milk Of Magnesia) 30 ml DAILY PRN PO CONSTIPATION 05/13/20 22:15 05/14/20 18:24 DC Metoprolol Succinate (TopROL XL) 25 mg SuTuThSa@0800 PO 05/14/20 08:00 05/14/20 01:16 DC Metoprolol Tartrate (Lopressor) 5 mg Q5M IV 05/13/20 18:00 05/13/20 18:11 Cancel Metoprolol Tartrate (Lopressor) 50 mg Q6H PO 05/14/20 00:00 05/14/20 03:29 DC 05/14/20 01:52 Mirtazapine (Remeron) 7.5 mg QHS PO 05/13/20 23:00 05/14/20 18:24 DC Morphine Sulfate (Roxanol) 2 mg Q2HP PRN SL SEVERE PAIN (PS 8-10) 05/14/20 18:30 05/15/20 10:29 Norepinephrine Bitartrate 8 mg/ Dextrose 508 ml @ 15.24 mls/ hr Q24H IV 05/14/20 05:00 05/14/20 18:24 DC 05/14/20 06:38 Omeprazole (PriLOSEC) 40 mg BID PO 05/13/20 23:00 05/14/20 18:24 DC 05/14/20 10:01 Ondansetron HCl (Zofran) 4 mg Q4H PRN PO NAUSEA 05/13/20 23:00 05/14/20 18:24 DC Oxycodone/ Acetaminophen (Percocet 5mg/ 325mg Tablet) 1 tab Q8H PO 05/14/20 00:00 05/14/20 18:24 DC 05/14/20 16:38 Potassium Chloride 10 meq/ IV Miscellaneous Supplies 100 ml @ 100 mls/hr Q1H IV 05/14/20 13:00 05/14/20 16:59 DC 05/14/20 16:37 Scopolamine (Scopolamine) 1 mg Q3DP PRN TOP EXCESSIVE SECRETIONS 05/14/20 18:30 Senna/Docusate Sodium (Senokot S) 2 tab BID PO 05/13/20 23:00 05/14/20 18:24 DC 05/14/20 10:09 Tizanidine HCl (Zanaflex) 2 mg TID PO 05/13/20 23:00 05/14/20 18:24 DC 05/14/20 16:37 Vitamin B Complex/ Vit C/Folic Acid (Nephro-Jake Rx) 1 tab DAILY PO 05/14/20 09:00 05/14/20 18:24 DC 05/14/20 13:43 Vitamin D (Drisdol) 50,000 units Fr@0900 PO 05/15/20 09:00 05/14/20 18:24 DC Allergies Coded Allergies: Sukh (Verified Allergy, Severe, SUKH SKINS - RASH, THROAT SWELLING, DIFF BREATHING, 11/15/18) Sharron Franklin MD May 15, 2020 14:36
--- NOTE | 2020-05-15 14:46 | IPN ---
PROGRESS NOTE DATE: 05/15/2020 Ms. Delgado was seen yesterday for initial consultation. She has not been feeling well, and due to multiple comorbid conditions, she has decided to stop dialysis and has been changed to comfort measures only status by hospitalist service. I did not know about this until this morning. I did talk to the patient, and she confirmed that she does not wish to continue dialysis anymore and just wants to be comfortable. I am signing off her case.
[2020-05-15] MEDS ORDERED: SALIVA SUBSTITUTE(MOUTHKOTE) BTL MT PRN (22:00)
[2020-05-16] MEDS: MORPHINE 10MG/0.5ML ORAL CONCENTRATE SOLUTION U/D SL PRN ×4 (02:24→19:00)
[2020-05-16] MEDS: LORazepam 1 MG TAB PO PRN ×2 (14:20→18:53)
[2020-05-17] MEDS: MORPHINE 10MG/0.5ML ORAL CONCENTRATE SOLUTION U/D SL PRN ×2 (14:22→23:39)
[2020-05-18] MEDS: MORPHINE 10MG/0.5ML ORAL CONCENTRATE SOLUTION U/D SL PRN ×2 (12:43→22:45)
[2020-05-19] MEDS: MORPHINE 10MG/0.5ML ORAL CONCENTRATE SOLUTION U/D SL PRN (13:03)
[2020-05-19] MEDS: LORazepam 1 MG TAB PO PRN (14:09)
[2020-05-20] MEDS: MORPHINE 10MG/0.5ML ORAL CONCENTRATE SOLUTION U/D SL PRN ×2 (00:43→09:47)
[2020-05-21] MEDS: MORPHINE 10MG/0.5ML ORAL CONCENTRATE SOLUTION U/D SL PRN (07:20)
[2020-05-21] MEDS ORDERED: MORP20SO3 PO ×2 (09:03→09:06)
[2020-05-21] MEDS ORDERED: HYOS125TA PO ×2 (09:03→09:06)
[2020-05-21] MEDS ORDERED: ATIV1TAB10 PO ×2 (09:03→09:06)
--- NOTE | 2020-05-21 09:54 | DS.PDOC ---
Discharge Summary General Date of Admission May 13, 2020 at 22:14 Date of Discharge 05/21/20 INFERTILITY NURSE DNR DNI TRANSFERRED TO HOSPICE HOUSE. Discharge Summary DISCHARGE DIAGNOSES: Hypotension poss cardiac vs. infectious cause previously on pressor support Atrial fibrillation with RVR Acute on chronic HFpEF with exacerbation ESRD on HD Anemia of chronic disease Secondary hyperparathyroidism Renal osteodystrophy Osteoporosis Obesity CONSULTANTS: Television Service Engineer, Dr. Melvin Begum Shift Foreman, Dr. Marito Mendoza DISCHARGE medications: See below HOSPITAL COURSE: 69-year-old female with history of end-stage renal disease on maintenance dialysis, admitted on 1216 with complaints of hypotension. Systolic pressure is 60-70 and tachycardia found to have atrial fibrillation with rapid ventricular rate of 114, admitted to the intensive care unit and started on intravenous fluids, a total of 750 and mouth normal saline in the emergency room without improvement. Patient was subsequently started on intravenous Levophed drip. Corporate Secretary, Dr. Mendoza was consulted for line placement. While the heart rate was controlled by digoxin every 6 hourly per recycling worker, Dr. montoya, patient began to refuse care and wanted comfort measures only. She was made DO NOT RESUSCITATE, DO NOT INTUBATE and was started on morphine, scopolamine and Ativan . Patient was changed [facility] SNF status and 05/14/2020. Hospice was consulted and patient is discharged to hospice house on 05/21/2020. ALLERGIES: Please see below. PHYSICAL EXAMINATION ON DISCHARGE: VITAL SIGNS: Please see below. GEN: positive respiratory distress. Lethargic HEENT: Dry mucous membranes cyanotic CVS: RRR/NMRG LUNGS: Diminished with bilateral crackles ABDOMEN: Obese, soft, nontender, nondistended, positive bowel sounds 4 quadrants . Extremities chronic edema bilaterally LABORATORY DATA: Please see below. IMAGING: See below DISCHARGE INSTRUCTIONS: Primary care physician to address all comfort measures only medications as outpatient. TIME SPENT ON DISCHARGE:30 minutes. Vital Signs/I&Os Vital Signs Date Time Temp Pulse Resp B/P (MAP) Pulse Ox O2 Delivery O2 Flow Rate FiO2 05/20/20 10:20 16 05/18/20 00:09 95 Room Air I&O- Last 24 Hours up to 6 AM 05/21/20 06:00 Intake Total 490 ml Balance 490 ml Microbiology Microbiology 05/14/20 Blood Culture - Final, Complete NO GROWTH AFTER 5 DAYS 05/14/20 Blood Culture - Final, Complete NO GROWTH AFTER 5 DAYS Discharge Medications Scheduled PRN Hyoscyamine Sulfate (Hyoscyamine Sulfate) 0.125 Mg Tab.subl, 0.125 MG PO Q4HP PRN for TERMINAL SECRETIONS Use sublingually if unable to swallow Allergies Coded Allergies: [place] (Verified Allergy, Severe, KENA SKINS - RASH, THROAT SWELLING, DIFF BREATHING, 11/15/18) TIKI PAYNE MD May 21, 2020 09:54
== END 2020-05-21 11:30 | disposition hospice, inpatient (51) | DRG 314 ==
LOC: M ED 16:55 → EDBD 16:55 → M ED INP 22:14 → ENRESERV 05-14 02:55 → M PCU 05-14 15:39 → M MSPAV 05-14 20:10
PROVIDERS: ADMIT Internal Medicine; ATTEND General Practice
DX: I95.9 Hypotension, unspecified (principal); N18.6 End stage renal disease; I50.33 Acute on chronic diastolic (congestive) heart failure; I48.11 Longstanding persistent atrial fibrillation; I13.2 Hypertensive heart and chronic kidney disease with heart failure and with stage 5 chronic kidney disease, or end stage renal disease; N25.81 Secondary hyperparathyroidism of renal origin; I27.20 Pulmonary hypertension, unspecified; E87.6 Hypokalemia; E66.9 Obesity, unspecified; I36.0 Nonrheumatic tricuspid (valve) stenosis; Z68.33 Body mass index [BMI] 33.0-33.9, adult; Z79.82 Long term (current) use of aspirin; Z79.899 Other long term (current) drug therapy; Z91.018 Allergy to other foods; M81.0 Age-related osteoporosis without current pathological fracture; D63.1 Anemia in chronic kidney disease